=== PATIENT | female | born 1970 | race Caucasian/White ===

== ENCOUNTER → 2017-12-18 10:27 | Outpatient (CLI) | payer OTHER, SELFPAY ==
--- NOTE | 2017-12-18 10:35 | HPBI_ITS ---
MAMMOGRAPHY - BILATERAL SCREENING REASON FOR EXAM: Female, 47 years old. Routine annual screening examination. PERTINENT HISTORY: Non-contributory. Remote right stereotactic breast biopsy. TECHNIQUE: Digital bilateral breast erica (3D mammographic acquisition) in the CC and MLO projections. 2-D mediolateral oblique (MLO) and craniocaudad (CC) views of both breasts were obtained. CAD: Full Field Digital Mammography with Computer Added Detection was performed. COMPARISON: Comparison is made with prior examination of November 07, 2016 and November 02, 2015. FINDINGS: Breast Composition: The breasts are heterogeneously dense, which may obscure small masses. There are no dominant masses or suspicious calcifications. Stable tissue clip marker is seen in the deep mid slightly medial aspect of the right breast. No other significant abnormalities are identified. There has been no significant change since the prior study. HPBI/SCREENING MAMM (CAD), BILAT IMPRESSION: Stable bilateral screening mammogram. Yearly follow-up mammogram recommended. (A) ASSESSMENT CATEGORY: BIRADS Category 2: Benign. A letter regarding these results will be sent to the patient by the facility within 30 days. Approximately 10% of breast cancers are not detected by mammography. A normal mammogram should not delay biopsy of a clinically suspicious abnormality. [id number] Electronically Signed: Vamsi Vlale MD at 12:18 EDT Tel [phone], Service support ,
== END ==
PROVIDERS: Family Provider Family Medicine; PCP Family Medicine; Visit Provider Nurse Practitioner Women's Health
DX: Z12.31 Encounter for screening mammogram for malignant neoplasm of breast (principal)
CPT/HCPCS: 77063; 77067

== ENCOUNTER → 2018-02-10 12:18 | Outpatient (CLI) | payer OTHER, SELFPAY ==
--- NOTE | 2018-02-10 12:21 | RAD_ITS ---
STUDY: X-RAY - LEFT FOOT CLINICAL: Female, 47 years old. Left foot pain at the first tarsal bone TECHNIQUE: 3 view(s) of the foot. COMPARISON: None. FINDINGS: Normal talus, calcaneus, and tarsal bones. Normal visualized subtalar, talonavicular, calcaneocuboid, tarsal and tarsometatarsal articulations. Normal metatarsi. Large cortical excrescence at the head of the first metatarsal laterally measuring 1.7 x 0.9 cm. Normal tibial and fibular sesamoid bones. Normal interphalangeal joint of the great toe. Normal phalanges of the great toe. Normal second through fifth metatarsophalangeal joints. Normal interphalangeal joints and phalanges of the lesser toes. The soft tissue structures are unremarkable. RAD/Foot min 3 Views IMPRESSION: No acute findings. Large cortical excrescence at the head of the first metatarsal as detailed above. Electronically Signed: Rasta Hinojosa DO at 12:39 EDT Tel , Service support ,
== END ==
PROVIDERS: Family Provider Family Medicine; PCP Family Medicine; Visit Provider Family Medicine
DX: M79.672 Pain in left foot (principal)
CPT/HCPCS: 73630

== ENCOUNTER → 2018-03-12 07:23 | Outpatient (CLI) | payer OTHER, SELFPAY ==
--- NOTE | 2018-03-12 07:23 | DT_ITS ---
This patient was seen during an EMR downtime March 10, 2018 - March 17, 2018. This patient may have a combination of paper and electronic documentation or all paper documentation. All documentation is viewable within the e-chart portion of [facility] for each patient visit.
--- NOTE | 2018-03-12 07:30 | MRI_ITS ---
STUDY: MRI LEFT FOREFOOT WITHOUT CONTRAST REASON FOR EXAM: Female, 47 years old. First MTP joint pain TECHNIQUE: Standardized fat and water weighted pulse sequences were obtained in all 3 orthogonal planes. COMPARISON: X-ray 02/10/2018 FINDINGS: There is mild hallux valgus with osteoarthritis of the first MTP joint (image 11, 10, 9, 24 coronal T2). There is a joint effusion. There is bone marrow edema at the first metatarsal head and sesamoids (image 5, 824 sagittal inversion recovery). There is focal soft tissue fullness at the plantar aspect of the metatarsal heads of the second web space (image 17/ axial T1). Normal medial and lateral heads of the flexor hallucis brevis tendons. Normal flexor and extensor hallucis longus tendons. Normal second through fifth metatarsophalangeal (MTP) joints. Normal interphalangeal joints of the second through fifth toes. Normal proximal, middle and distal phalanges of the second through fifth toes. Normal flexor and extensor tendons of the second through fifth toes. Normal visualized metatarsi. Normal intrinsic muscles of the forefoot. There is no demonstrated soft tissue abnormality. MRI/Lower Ext/No Jt/w/o IMPRESSION: Hallux valgus with osteoarthritis at the first MTP joint with contusion/stress reaction at the first metatarsal head/sesamoids Small Moyer's neuroma, second webspace Electronically Signed: Betito Olsen MD at 9:50 EDT Tel , Service support ,
== END ==
PROVIDERS: Family Provider Family Medicine; PCP Family Medicine; Visit Provider Podiatrist
DX: M20.5X2 Other deformities of toe(s) (acquired), left foot (principal); M79.672 Pain in left foot; M19.072 Primary osteoarthritis, left ankle and foot; M25.80 Other specified joint disorders, unspecified joint
CPT/HCPCS: 73718

== ENCOUNTER → 2018-07-16 12:35 | Outpatient (CLI) | payer OTHER, SELFPAY | PROVIDERS: Family Provider Family Medicine; PCP Family Medicine; Visit Provider Nurse Practitioner Women's Health | DX: Z84.81 Family history of carrier of genetic disease (principal) | CPT/HCPCS: 36415 ==

== ENCOUNTER → 2018-12-17 11:24 | Outpatient (CLI) | payer OTHER, SELFPAY ==
[2018-12-17 11:16] VITALS: BMI 21.3
--- NOTE | 2018-12-17 11:28 | RAD_ITS ---
STUDY: X-RAY CHEST REASON FOR EXAM: Female, 48 years old. Cough. TECHNIQUE: PA and lateral views of the chest. COMPARISON: Comparison is made with prior study dated January 30, 2017. FINDINGS: Hyperinflation. The lungs are clear. There is no demonstrated pleural abnormality. Normal size heart. Normal mediastinum and valentin. Normal visualized pulmonary arteries. Normal visualized aortic arch and descending thoracic aorta. Normal visualized thoracic spine. Normal visualized ribs, clavicles, and shoulders. There is no demonstrated abnormality of the visualized soft tissue structures of the upper abdomen. RAD/Chest PA and Lateral IMPRESSION: Hyperinflation. The lungs are clear. Electronically Signed: Vamsi Valle, at 12:37 EDT , Service support ,
== END ==
PROVIDERS: Family Provider Family Medicine; PCP Family Medicine; Referring Provider Physician Assistant; Visit Provider Physician Assistant
DX: R05 Cough (principal)
CPT/HCPCS: 71046

== ENCOUNTER → 2019-01-09 13:22 | Outpatient (CLI) | payer OTHER, SELFPAY ==
[2018-12-17 11:16] VITALS: BMI 21.3
[2019-01-12 11:51] LABS: Hep C Antibodies <0.1 s/co ratio (0.0-0.9)
== END ==
PROVIDERS: Family Provider Family Medicine; PCP Family Medicine; Visit Provider Family Medicine
DX: Z57.8 Occupational exposure to other risk factors (principal)
CPT/HCPCS: 36415; 86803

== ENCOUNTER → 2019-01-14 | Outpatient (CLI) | payer OTHER, SELFPAY ==
[2018-12-17 11:16] VITALS: BMI 21.3
--- NOTE | 2019-01-14 07:47 | BI_ITS ---
MAMMOGRAPHY - BILATERAL SCREENING REASON FOR EXAM: Female, 48 years old. Routine annual screening examination. PERTINENT HISTORY: Daughter with breast cancer. Remote right stereotactic breast biopsy. TECHNIQUE: Digital bilateral breast astrid (3D mammographic acquisition) in the CC and MLO projections. 2-D mediolateral oblique (MLO) and craniocaudad (CC) views of both breasts were obtained. CAD: Full Field Digital Mammography with Computer Added Detection was performed. COMPARISON: Comparison is made with prior study dated December 18, 2017 and November 07, 2016. FINDINGS: Breast Composition: The breasts are heterogeneously dense, which may obscure small masses. There are no dominant masses or suspicious calcifications. A tissue clip marker from prior biopsy is seen in the central slightly medial aspect of the right breast. No other significant abnormalities are identified. There has been no significant change since the prior study. BI/SCREEN MAMM (CAD) W/ASTRID BILAT IMPRESSION: Stable bilateral screening mammogram. Yearly follow-up mammogram recommended. (A) ASSESSMENT CATEGORY: BIRADS Category 2: Benign. A letter regarding these results will be sent to the patient by the facility within 30 days. Approximately 10% of breast cancers are not detected by mammography. A normal mammogram should not delay biopsy of a clinically suspicious abnormality. [id number] Electronically Signed: Vamsi Valle, at 12:38 EDT , Service support ,
== END | disposition home or self-care (01) ==
LOC: OPBI 07:45
PROVIDERS: Family Provider Family Medicine; PCP Family Medicine; Referring Provider Nurse Practitioner Women's Health; Visit Provider Nurse Practitioner Women's Health
DX: Z12.31 Encounter for screening mammogram for malignant neoplasm of breast (principal)
CPT/HCPCS: 77063; 77067

== ENCOUNTER 2019-09-18 09:10 | Emergency (ER) | payer OTHER, SELFPAY ==
[2019-04-11 09:55] VITALS: BMI 21.3
[2019-09-18 09:11] VITALS: BP 152/91; PULSE 102; RESP 16; TEMP 36.9; O2SAT 100; BMI 24.3
--- NOTE | 2019-09-18 09:28 | EKG12_ITS ---
Test Reason : CP Blood Pressure : / mmHG Vent. Rate : 094 BPM Atrial Rate : 094 BPM P-R Int : 142 ms QRS Dur : 076 ms QT Int : 356 ms P-R-T Axes : 078 066 049 degrees QTc Int : 445 ms Normal sinus rhythm Normal ECG Confirmed by OLGA GAONA ([id number]), magazine editor CASANRDA POWERS ([id number]) on 09/23/2019 12:55:34 PM Referred By: HILLARY Confirmed By:OLGA GAONA
--- NOTE | 2019-09-18 09:29 | ED.VIS.CHEST ---
History of Present Illness Chief Complaint: Chest Pain Informant: Patient Onset: Today Activity at onset: Rest Timing: Continuous Quality: Pressure, Sharp, Stabbing Location: Left Chest Current Severity: Severe Worsened By: Breathing Relieved By: Nothing Associated Symptoms: Dyspnea, Acid Reflux Narrative: Patient is a 49-year-old female with history of GERD and depression presenting with left-sided chest pain. Patient states when she woke up from sleep she had an aching in her left side of her chest. She is also felt tight. But that is gone on the pain has worsened. For the past few minutes she states the pain is become quite sharp. It is in her upper left chest. Is worse when she takes a deep breath. She denies any radiation of pain. She states she feels short of breath on because she cannot take a deep breath. She states she never had anything like this before. She notes she also feels that she needs to belch but cannot. She denies any associated sweating, nausea or vomiting. She denies any swelling of her legs. She denies any recent travel or history of DVT/PE. She denies any associate abdominal pain or urinary symptoms. She does not think she is as she is currently on oral control. Patient denies any cardiac history, hypertension, hyperlipidemia or history of tobacco use. She notes at one time in the past she was having fluttering and she had a Holter monitor. She never found out the cause of this fluttering and it had resolved. Prior Similar Symptoms: No Recent Illness/Hospitalization: No CVD Risk Factors: Negative for: Hypertension, Diabetes, Hypercholesterolemia, Family History 1' </=55, Smoking PE Risk Factors: - - Positive OCP use. Negative for: Recent Travel/Surgery, Recenet Immobilization, Prior DVT or PE, Cancer, OCP + Smoking + >/=35 Past Medical History - Allergies and Home Meds Allergies/Adverse Reactions: Allergies clarithromycin [From Biaxin] Allergy (Verified 09/18/19 09:14) Nikunj Primary Care Physician: Daniel Jay MD [Primary Care Provider] - Past Medical History: - - Pression, GERD Surgical History: appendectomy, cholecystectomy, - - EGD Lives: Spouse/ Significant Other Smoking Status: Never smoker Review of Systems General: Denies: Chills, Fever, Sweats Eyes: Denies: Visual changes - bilaterally, Diplopia ENT: Denies: Rhinorrhea, Sore throat Cardiovascular: Reports: Chest pain. Denies: Palpitations Respiratory: Reports: Dyspnea. Denies: Cough, Dyspnea on exertion Gastrointestinal: Denies: Abdominal pain, Nausea, Vomiting, Diarrhea, Melena, Hematochezia Genitourinary: Denies: Dysuria, Hematuria, Frequency Musculoskeletal: Denies: Back pain, Extremity Pain Skin: Denies: Rash, Wounds Neurological: Denies: Headache, Weakness, Numbness Physical Exam Vital Signs/Narrative: Vital Signs Temp Pulse Resp BP Pulse Ox 09/18/19 09:11 98.5 F 102 H 16 152/91 H 100 Inital Vital Signs reviewed: Yes General: Well nourished, Well developed, No Acute Distress Head: Normocephalic, Atraumatic Eyes: Perrl, EOMI ENT: Moist mucous membranes, No rhinorrhea Neck: Supple, Nontender Cardiovascular: Regular rate, Regular rhythm, No murmurs Respiratory: No distress, CTA bilaterally, Chest nontender, - - Patient is unable to take deep breaths secondary to pain. Negative for: Wheezing Abdomen: Soft, Nontender, Nondistended, Normal bowel sounds Back: Nontender, Normal Inspection Extremities: Nontender, No edema Skin: Normal color, No rash Neurological: Alert, Oriented x3, Cranial nerves II-XII grossly intact, Normal Strength, Normal Sensation Psychological: Normal affect, - - Anxious Diagnostic/Tx/Re-eval Chest X-Ray - ED: 2 View, Read by ED Physician, Read by Radiologist, No Acute Disease Clinical Impression(s) from Imaging Studies Chest X-Ray 09/18/19 09:35 IMPRESSION: Normal x-ray examination of the chest. Electronically Signed: Vamsi Valle, at 10:17 EST , Service support , Laboratory Data 09/18/19 09/18/19 09/18/19 09:15 09:15 09:15 WBC 7.1 RBC 4.82 Hgb 13.6 Hct 42.0 MCV 87.1 MCH 28.2 MCHC 32.4 RDW Std Deviation 42.8 RDW Coeff of Sundar 13.4 Plt Count 520 H MPV 10.1 Immature Gran % (Auto) 0.300 Neut % (Auto) 48.6 Lymph % (Auto) 38.1 Laurens % (Auto) 8.8 Eos % (Auto) 3.2 Baso % (Auto) 1.0 Absolute Neuts (auto) 3.5 Absolute Lymphs (auto) 2.72 Nucleated RBC % 0 D-Dimer Quant (PE/DVT) 0.31 Sodium 137 Potassium 4.0 Chloride 105 Carbon Dioxide 29.0 Anion Gap 3 L BUN 15 Creatinine 0.73 Estim Creat Clear Calc 83.88 Est GFR (MDRD) Af Amer 108 Est GFR (MDRD) Non-Af 90 BUN/Creatinine Ratio 20.5 H Glucose 83 Calcium 9.1 Troponin I < 0.015 Urine Test 09/18/19 10:30 WBC RBC Hgb Hct MCV MCH MCHC RDW Std Deviation RDW Coeff of Sundar Plt Count MPV Immature Gran % (Auto) Neut % (Auto) Lymph % (Auto) Laurens % (Auto) Eos % (Auto) Baso % (Auto) Absolute Neuts (auto) Absolute Lymphs (auto) Nucleated RBC % D-Dimer Quant (PE/DVT) Sodium Potassium Chloride Carbon Dioxide Anion Gap BUN Creatinine Estim Creat Clear Calc Est GFR (MDRD) Af Amer Est GFR (MDRD) Non-Af BUN/Creatinine Ratio Glucose Calcium Troponin I Urine Test Negative - Rhythm Strip Rhythm Strip: Sinus Rhythm Rate: 94 Ectopy: None - EKG Initial EKG Interpretation: Sinus Rhythm, - - This rhythm at a rate of [address] segments Normal axis Treatment: Aspirin, Morphine, Toradol IV MARIA G Risk: No Positive MARIA G Elements Score: 0 - Medical Decision Making Patient evaluated for left-sided chest pain. Is been worsening throughout the morning. She appears nontoxic and in no acute distress. She is mildly tachycardic. D-dimer is negative and have a low suspicion for PE. Do not make a CT is indicated given for stable hemodynamics, symptoms and normal d-dimer. EKG is normal. Her troponin is normal. Pain is most consistent with pleurisy. It is much worse when she takes a big breath and better with shallow breathing. Is not reproducible with palpation. Position does not change it. She has normal white blood cell count. I do not suspect pneumonia. Patient was initially given morphine and aspirin. She has mild relief with this. She was given IV Toradol. Patient does continue to have improvement emergency room. At time of discharge she was given a Lidoderm patch. I do not suspect ACS. Lower suspicion for pericarditis I do not suspect myocarditis given her normal heart rate and normal troponin. Patient is counseled to return should she have worsening or changing symptoms. She is counseled on pleurisy. Patient is counseled on signs and symptoms requiring return to the emergency room. Patient verbalizes agreement and understand this plan. Patient discharged home in stable and improved condition. ED Disposition - Plan for ED Patient: Disposition: Home or Assisted Living Diagnosis: Pleuritic chest pain Instructions: Pleurisy Prescriptions: Ibuprofen [Motrin] 600 mg PO Q6H PRN PRN #20 tab PRN Reason: Pain Or Fever Prescription Printed Referrals: Daniel Jay MD [Primary Care Provider] - Additional Instructions: Please follow-up with your primary care doctor early next week if no improvement. Return the emergency room if your symptoms worsen. Continue to take anti-inflammatory such as ibuprofen for the pain. You may try [id number] Lidoderm patch 4% if you found it helpful in the ER. Drink plenty of fluids.
[2019-09-18] MEDS: Morphine 4 MG/ML Syringe IV (09:33)
[2019-09-18] MEDS: Aspirin 81 MG TAB.CHEW 324 MG PO (09:33)
--- NOTE | 2019-09-18 09:35 | RAD_ITS ---
STUDY: X-RAY CHEST REASON FOR EXAM: Female, 49 years old. Chest pain. TECHNIQUE: PA and lateral views of the chest. COMPARISON: Comparison is made with prior study dated December 17, 2018. FINDINGS: EKG electrodes are seen. The lungs are clear and expanded. There is no demonstrated pleural abnormality. Normal size heart. Normal mediastinum and valentin. Normal visualized pulmonary arteries. Normal visualized aortic arch and descending thoracic aorta. Normal visualized thoracic spine. Normal visualized ribs, clavicles, and shoulders. There is no demonstrated abnormality of the visualized soft tissue structures of the upper abdomen. RAD/Chest PA and Lateral IMPRESSION: Normal x-ray examination of the chest. Electronically Signed: Vamsi Valle, at 10:17 EST , Service support ,
[2019-09-18 09:39] LABS: Absolute Lymphocyte Count 2.72 X10^3/uL (0.83-4.51); Absolute Neutrophil Count 3.5 X10^3/uL (2.0-7.7); Basophil# 0.07 X10^3/uL; Eosinophil# 0.23 X10^3/uL; Eosinophils% 3.2 % (0-5); Hemoglobin 13.6 g/dL (12.0-15.0); Lymphocyte # 2.72 X10^3/ul (4.0); Lymphocyte % 38.1 % (19-41); Mean Corp Hgb Conc 32.4 g/dL (32-36); Mean Corpuscular Hgb 28.2 pg (27.0-32.0); Mean Corpuscular Volume 87.1 fL (81-99); Mean Platelet Vol. 10.1 fl (6.2-12.0); Monocyte# 0.63 X10^3/uL; Monocyte% 8.8 % (0-10); NRBC Flagged by Analyzer 0 % (0-5); Neutrophil # 3.46 X10^3/uL (2.7-7.7); Neutrophil % 48.6 % (47-70); Platelet Count 520 K/mm3 (150-450); RBC Distribution Width CV 13.4 % (11.6-14.6); RBC Distribution Width SD 42.8 fl (35.1-43.9); Red Blood Count 4.82 M/mm3 (4.2-5.4); White Blood Count 7.1 K/mm3 (4.4-11.0)
[2019-09-18 09:44] LABS: D-Dimer Quantitative (DVT/PE) 0.31 FEU/ug/m (0.27-0.49)
[2019-09-18 09:50] LABS: Anion Gap 3 (5-15); BUN 15 mg/dL (7-18); BUN/Creat Ratio 20.5 RATIO (10-20); Calcium,Total 9.1 mg/dL (8.5-10.1); Chloride 105 mmol/L (98-107); Creatinine, Serum 0.73 mg/dL (0.55-1.02); EST Glomerular Filtration Rate 90 mL/min (>60); Est Glom Filt Rate - Afr Amer 108 mL/min (>60); Estimated Creatinine Clearance 83.88 ml/min; Glucose 83 mg/dL (74-106); Sodium Level 137 mmol/L (136-145)
[2019-09-18 10:40] LABS: Internal QC Validated? YES +Cl - CLEAR BKGD; Pregnancy, Urine Negative Negative
[2019-09-18] MEDS: Ketorolac 15 MG/ML Vial IV (11:13)
[2019-09-18] MEDS: Lidocaine 5% Patch 1 PATCH TOPICAL (11:28)
[2019-09-18 11:30] VITALS: BP 142/80; PULSE 76; RESP 17; O2SAT 96
== END 2019-09-18 11:31 | disposition home or self-care (01) ==
PROVIDERS: Emergency Provider Emergency Medicine; Family Provider Family Medicine; PCP Family Medicine
DX: R07.81 Pleurodynia (principal); K21.9 Gastro-esophageal reflux disease without esophagitis
CPT/HCPCS: 71046; 80048; 81025; 84484; 85025; 85379; 93005; 96374; 96375; 99285; A4216

== ENCOUNTER → 2020-01-20 08:29 | Outpatient (CLI) | payer OTHER, SELFPAY ==
[2019-12-03 11:23] VITALS: BMI 24.3
--- NOTE | 2020-01-20 08:30 | BI_ITS ---
MAMMOGRAPHY - BILATERAL SCREENING REASON FOR EXAM: Female, 49 years old. Routine annual screening examination. PERTINENT HISTORY: Daughter with breast cancer. Prior right stereotactic breast biopsy. TECHNIQUE: Digital bilateral breast astrid (3D mammographic acquisition) in the CC and MLO projections. 2-D mediolateral oblique (MLO) and craniocaudad (CC) views of both breasts were obtained. CAD: Full Field Digital Mammography with Computer Added Detection was performed. COMPARISON: Comparison is made with prior examination dated January 14, 2019 and December 18, 2017. FINDINGS: Breast Composition: The breasts are heterogeneously dense, which may obscure small masses. There are no dominant masses or suspicious calcifications. No other significant abnormalities are identified. There has been no significant change since the prior study. BI/SCREEN MAMM (CAD) W/ASTRID BILAT IMPRESSION: Stable bilateral screening mammogram. Yearly follow-up mammogram recommended. (A) ASSESSMENT CATEGORY: BIRADS Category 1: Negative. A letter regarding these results will be sent to the patient by the facility within 30 days. Approximately 10% of breast cancers are not detected by mammography. A normal mammogram should not delay biopsy of a clinically suspicious abnormality. [id number] Electronically Signed: Vamsi Valle, at 14:24 EDT , Service support ,
== END ==
PROVIDERS: PCP Family Medicine; Referring Provider Nurse Practitioner Women's Health; Visit Provider Nurse Practitioner Women's Health
DX: Z12.31 Encounter for screening mammogram for malignant neoplasm of breast (principal)
CPT/HCPCS: 77063; 77067

== ENCOUNTER → 2020-03-11 | Outpatient (CLI) | payer OTHER, SELFPAY ==
[2020-01-20 09:48] VITALS: BMI 24.3
[2020-03-11 13:18] LABS: Cholesterol 212 mg/dL (200); Glucose 69 mg/dL (74-106); High Density Lipoprotein 83 mg/dL; T4 Free Direct 0.98 ng/dL (0.76-1.46); Thyroid Stim Hormone (TSH) 2.39 uIU/mL (0.358-3.74); Triglycerides 81 mg/dL; Very Low Density Lipoprotein 16 mg/dL (5-40)
[2020-03-12 07:17] LABS: SARS-COV-2 TOTAL ABS Nonreactive (Nonreactive)
== END | disposition home or self-care (01) ==
LOC: BFHLAB 08:45
PROVIDERS: PCP Family Medicine; Visit Provider Family Medicine
DX: G47.00 Insomnia, unspecified (principal); R53.83 Other fatigue; Z20.828 Contact with and (suspected) exposure to other viral communicable diseases; Z13.220 Encounter for screening for lipoid disorders; Z13.1 Encounter for screening for diabetes mellitus
CPT/HCPCS: 36415; 80061; 82947; 84439; 84443; 86769; G2023

== ENCOUNTER → 2020-05-20 | Outpatient (CLI) | payer OTHER, SELFPAY ==
[2020-01-20 09:48] VITALS: BMI 24.3
[2020-05-20 10:33] LABS: Follicle Stimulating Hormone 0.7 mIU/mL
== END | disposition home or self-care (01) ==
LOC: PAVLAB 09:57
PROVIDERS: PCP Family Medicine; Referring Provider Nurse Practitioner Women's Health; Visit Provider Nurse Practitioner Women's Health
DX: N95.1 Menopausal and female climacteric states (principal)
CPT/HCPCS: 36415; 83001

== ENCOUNTER → 2020-06-08 09:40 | Outpatient (CLI) | payer OTHER, SELFPAY ==
[2020-01-20 09:48] VITALS: BMI 24.3
[2020-06-08 11:05] LABS: Follicle Stimulating Hormone 25.9 mIU/mL
== END ==
PROVIDERS: PCP Family Medicine; Referring Provider Nurse Practitioner Women's Health; Visit Provider Nurse Practitioner Women's Health
DX: N39.0 Urinary tract infection, site not specified (principal)
CPT/HCPCS: 36415; 83001; 87077; 87086; 87088; 87186

== ENCOUNTER → 2021-01-25 09:41 | Outpatient (CLI) | payer OTHER, SELFPAY ==
[2020-09-07 14:03] VITALS: BMI 20.6
[2021-01-25 09:08] VITALS: BMI 20.8
--- NOTE | 2021-01-25 09:51 | BI_ITS ---
MAMMOGRAPHY - BILATERAL SCREENING REASON FOR EXAM: Female, 50 years old. Routine annual screening examination. PERTINENT HISTORY: Daughter with breast cancer. Remote right stereotactic breast biopsy. TECHNIQUE: Digital bilateral breast astrid (3D mammographic acquisition) in the CC and MLO projections. 2-D mediolateral oblique (MLO) and craniocaudad (CC) views of both breasts were obtained. CAD: Full Field Digital Mammography with Computer Added Detection was performed. COMPARISON: Comparison is made with prior study dated 01/20/2020 and 01/14/2019. FINDINGS: Breast Composition: The breasts are extremely dense, which lowers the sensitivity of mammography. There are no dominant masses or suspicious calcifications. A tissue clip marker is once again seen in the deep central portion of the right breast. No other significant abnormalities are identified. There has been no significant change since the prior study. BI/SCRN MAMM (CAD)W/ASTRID BILAT IMPRESSION: Stable bilateral screening mammogram. Yearly follow-up mammogram recommended. (A) ASSESSMENT CATEGORY: BIRADS Category 2: Benign. A letter regarding these results will be sent to the patient by the facility within 30 days. Approximately 10% of breast cancers are not detected by mammography. A normal mammogram should not delay biopsy of a clinically suspicious abnormality. [id number] Electronically Signed: Vamsi Valle MD at 11:24 EDT , Service support ,
[2021-01-27 11:40] LABS: HPV APTIMA, High Risk Negative (Negative)
== END ==
PROVIDERS: PCP Family Medicine; Referring Provider Nurse Practitioner Women's Health; Visit Provider Nurse Practitioner Women's Health
DX: N92.6 Irregular menstruation, unspecified (principal); Z12.31 Encounter for screening mammogram for malignant neoplasm of breast; Z12.4 Encounter for screening for malignant neoplasm of cervix
CPT/HCPCS: 36415; 77063; 77067; 83001; 87624; 88175; G0145

== ENCOUNTER → 2021-01-27 12:23 | Outpatient (CLI) | payer OTHER, SELFPAY ==
[2021-01-25 09:08] VITALS: BMI 20.8
--- NOTE | 2021-01-27 12:24 | US_ITS ---
STUDY: ULTRASOUND OF THE FEMALE PELVIS - COMPLETE REASON FOR EXAM: Female, 50 years old. Elevated FSH . Perimenopausal bleeding. LMP: 01/10/2021. TECHNIQUE: Transabdominal and Transvaginal TECHNICAL QUALITY: Adequate. COMPARISON: None. FINDINGS: The uterus is anteverted and is in a midline position. The uterus measures 8.8 cm x 7.3 cm x 4 cm. There is a Nabothian cyst of the cervix. The endometrium measures 6 mm in thickness, and is hyperechoic. There is no demonstrated endometrial mass. 2 fibroids are seen. The larger measures 2.6 cm x 2.9 cm x 2.8 cm. I.U.D. - The patient does not have an I.U.D. The right ovary is visualized. The right ovary measures 3.2 cm x 2.4 cm x 1.5 cm. There is no right ovarian cyst or ovarian mass. There is no visualized right adnexal mass or complex lesion. There is normal arterial and normal venous vascularity. The left ovary is visualized. The left ovary measures 2.1 cm x 1.3 cm x 0.8 cm. There is no left ovarian cyst or ovarian mass. There is no visualized left adnexal mass or complex lesion. There is normal arterial and normal venous vascularity. There is no fluid in the cul-de-sac. The pre void volume of the bladder was 235 ml. Polycystic ovary disease: No. US/Pelvic (Non ) IMPRESSION: Fibroid uterus. Electronically Signed: Vamsi Valle MD at 15:14 EDT , Service support ,
--- NOTE | 2021-01-27 12:24 | US_ITS ---
STUDY: ULTRASOUND OF THE FEMALE PELVIS - COMPLETE REASON FOR EXAM: Female, 50 years old. Elevated FSH . Perimenopausal bleeding. LMP: 01/10/2021. TECHNIQUE: Transabdominal and Transvaginal TECHNICAL QUALITY: Adequate. COMPARISON: None. FINDINGS: The uterus is anteverted and is in a midline position. The uterus measures 8.8 cm x 7.3 cm x 4 cm. There is a Nabothian cyst of the cervix. The endometrium measures 6 mm in thickness, and is hyperechoic. There is no demonstrated endometrial mass. 2 fibroids are seen. The larger measures 2.6 cm x 2.9 cm x 2.8 cm. I.U.D. - The patient does not have an I.U.D. The right ovary is visualized. The right ovary measures 3.2 cm x 2.4 cm x 1.5 cm. There is no right ovarian cyst or ovarian mass. There is no visualized right adnexal mass or complex lesion. There is normal arterial and normal venous vascularity. The left ovary is visualized. The left ovary measures 2.1 cm x 1.3 cm x 0.8 cm. There is no left ovarian cyst or ovarian mass. There is no visualized left adnexal mass or complex lesion. There is normal arterial and normal venous vascularity. There is no fluid in the cul-de-sac. The pre void volume of the bladder was 235 ml. Polycystic ovary disease: No. US/Transvaginal Non- IMPRESSION: Fibroid uterus. Electronically Signed: Vamsi Valle MD at 15:14 EDT , Service support ,
== END ==
PROVIDERS: PCP Family Medicine; Referring Provider Nurse Practitioner Women's Health; Visit Provider Nurse Practitioner Women's Health
DX: N92.6 Irregular menstruation, unspecified (principal)
CPT/HCPCS: 76830; 76856

== ENCOUNTER → 2021-02-01 | Outpatient (CLI) | payer OTHER, SELFPAY ==
--- NOTE | 2021-02-01 | EMB_PTH ---
PATIENT: NADIRA WONG [facility]: [facility] U#:[id number] AGE/SX: 50/F ROOM: RE02/01/[address]: KERRY Ramos : 1970 BED: DIS: 02/01/2021 SPEC #: [id number] RECD: 02/01/21 12:13 STATUS: JHOAN REJennifer #: [id number] SRIKANTH: 02/01/21 00:[address]: Brenda Triana NP DEPT: SURGICAL PATHOLOGY RECD BY: Joshua Duran ENTERED: 02/01/21 12:13 SP TYPE: ENDOM BX/C LLOYD DR: Dr. Daniel Jay MD Tissues: Endometrium, NOS Procedures: Surgery Specimen Level IV HEADER OPERATION: Endometrial biopsy PRE-OP DIAGNOSIS: Abnormal uterine bleeding TISSUE SUBMITTED: Endometrial biopsy MICROSCOPIC DIAGNOSIS Endometrial biopsy: Proliferative endometrium with focal area of mildly disordered proliferative endometrium. SJ:pam 02/02/2021 MICROSCOPIC DESCRIPTION Slides are reviewed. GROSS DESCRIPTION Received is one container labeled with the patient's name and not further designated. The specimen consists of multiple fragments of hemorrhagic mucoid tissue that in aggregate measure 2.5 x 0.5 x 0.1 cm. The specimen is totally submitted in one cassette. / SJ:pam 02/01/21 TC:5 CPT: 87329
[2021-02-01 08:47] VITALS: BMI 20.9
== END | disposition home or self-care (01) ==
LOC: LABSPEC 12:04
PROVIDERS: PCP Family Medicine; Visit Provider Nurse Practitioner Women's Health
DX: N93.9 Abnormal uterine and vaginal bleeding, unspecified (principal)
CPT/HCPCS: 88305

== ENCOUNTER 2021-03-17 08:30 | Outpatient (RCR) | payer OTHER, SELFPAY ==
[2021-02-01 08:47] VITALS: BMI 20.9
--- NOTE | 2021-02-23 07:56 | HP.OTEVAL_ITS ---
Patient's Visit Information CONSUELO WONG is a 50 year old F, referred to Occupational Therapy by Dr. Betito Larry MD, with a diagnosis of CMC arthritis. 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 pt states she did have PT at [facility] and was given exercises for her thumb and a comfort cool thumb brace- pt states she did not feel this has made much of a differance. pt did try k-tape and is difficult taking gloves on and off. pt would like to know what she can do to decrease pain and continue with her work and ADLS and IADLS at a independent level. - Pain right thumb 5 Pain Intensity Range: 4, 8 - ROM Wrist: right 80/65 left 75/85 CMC: right 20 left 20 MP: right 65 left 55 IP: right 60 left 65 Radial Abduction: right 40 left 50 ROM Comments: pt demo with thumb instability with resistance - Strength Linen Supervisor: right 20# left 40# Lateral Pinch: right 6# left 12# Tripod Pinch: right 2# left 4# Strength Comments: pain with task - DASH-Disabilities of Arm, Shoulder& Hand DASH Sum: 13 - Quick DASH-Disab of Arm,Shoulder& Hand Quick DASH Score: 36.6650 - Goals Goal:: pt will demo a increase in right sales account coordinator strength by 10# to increase pts ind. with ADLs and IADLs by d/c Goal:: pt will report no pain greater than 1/10 with use of ADls and IADLs by d/c Goal:: Pt will demo understanding of work/lifting and carry ergonomics to decrease stress on tendons to increase pts independent with ADLs, IADLS and work tasks by d/c. Pt will demo understanding of joint protection and ergonomics when performing BADLs and IADLs by d/c Goal:: pt will demo a reduction in thumb instability by 50% or greater with restive pinch. - Rehabilitation General Assessment: pt demo with thumb instability with sales account coordinator/pinch increasing joint stress and pain with use of right hand. This limits pts. IND. with ADLS and IADLS. pt would benefit from skilled OT services to ed. pt on joint protection, thumb stabilization exercises, pain reduction to return pt to [facility]. Today therapist ed pt on dx, thumb stabilization, and t-tape david. to support CMC. Therapy will cont. to ed. pt on joint protection, gardening ergonomics and modalities decrease pts pain. pt demo understanding and agree to POC. Rehabilitation Potential: Good - Anticipated Interventions Strengthening, Triggerpoint Release, Modalities, Orthoses, Joint Protection/Energy Conservation, Ergonomic Education, ADL Training, Education re assistive Equipment - Visit Plan Frequency: 1x/Week Duration: 3 Weeks TEXT: Thank you for the opportunity to evaluate your patient. For Medicare and Medicare HMO plans, please review the plan of care and approve it. It will need to be FAXED BACK to us at [phone] for Medicare purposes. Please let me know if there are questions or concerns regarding this plan of care. Physician Signature: Date:
--- NOTE | 2021-07-19 09:25 | HP.OT.NRP ---
NADIRA WONG was seen in my office for initial evaluation on 02/22/21. The following Plan of Care was established for this patient: Initial Frequency: 1x/Week Initial Duration: 3 Weeks Plan: cont with thumb care. US if pt felt better Anticipated Interventions: Strengthening, Triggerpoint Release, Modalities, Orthoses, Joint Protection/Energy Conservation, Ergonomic Education, ADL Training, Education re assistive Equipment This patient was last seen in our office 03/17/21. Pertinent comments regarding their Occupational therapy will appear below: Pt was seen for 4 OT visits- pt has not been seen since 03/17/21 and due to time lapse in services pt d/c. At this point I will be discontinuing this patient from occupational therapy. I would be happy to see this patient again in the future if found appropriate by the physician. Thank you! Nadira Edge, OTR/L, CHT
== END 2021-03-17 19:00 | disposition home or self-care (01) ==
LOC: OT 08:30
PROVIDERS: PCP Family Medicine; Referring Provider Specialist; Visit Provider Specialist
DX: M18.11 Unilateral primary osteoarthritis of first carpometacarpal joint, right hand (principal)
CPT/HCPCS: 97035; 97110; 97140; 97166; 97530; 97760

== ENCOUNTER → 2021-07-07 10:05 | Outpatient (CLI) | payer OTHER, SELFPAY ==
[2021-07-07 12:22] LABS: Absolute Lymphocyte Count 1.98 X10^3/uL (0.83-4.51); Absolute Neutrophil Count 3.5 X10^3/uL (2.0-7.7); Basophil# 0.06 X10^3/uL; Basophil% 0.9 % (0-1); Eosinophils% 3.2 % (0-5); Hematocrit 44.4 % (37-47); Hemoglobin 14.1 g/dL (12.0-15.0); Lymphocyte # 1.98 X10^3/ul (0.83-4.51); Lymphocyte % 31.3 % (19-41); Mean Corp Hgb Conc 31.8 g/dL (32-36); Mean Corpuscular Hgb 28.2 pg (27.0-32.0); Mean Corpuscular Volume 88.8 fL (81-99); Monocyte# 0.59 X10^3/uL; Monocyte% 9.3 % (0-10); NRBC Flagged by Analyzer 0 % (0-5); Neutrophil # 3.48 X10^3/uL (2.7-7.7); Neutrophil % 55.1 % (47-70); Platelet Count 660 K/mm3 (150-450); RBC Distribution Width CV 12.9 % (11.6-14.6); RBC Distribution Width SD 42.2 fl (35.1-43.9); White Blood Count 6.3 K/mm3 (4.4-11.0)
[2021-07-07 12:42] LABS: Vitamin D,25 Hydroxy 20.4 ng/mL
[2021-07-07 12:48] LABS: ALB/GLOB Ratio 1.1 RATIO (0.9-2.4); AST(SGOT) 17 U/L (15-37); Alanine Aminotransfer ALT/SGPT 26 U/L (13-56); Albumin, Serum 4.3 g/dL (3.2-5.0); Alkaline Phosphatase 109 U/L (45-117); Anion Gap 5 (5-15); BUN 17 mg/dL (7-18); BUN/Creat Ratio 26.6 RATIO (10-20); Calcium,Total 9.7 mg/dL (8.5-10.1); Chloride 104 mmol/L (98-107); Creatinine, Serum 0.64 mg/dL (0.55-1.02); EST Glomerular Filtration Rate 104 mL/min (>60); Est Glom Filt Rate - Afr Amer 126 mL/min (>60); Estradiol 16.9 pg/mL; Free T3 2.9 pg/mL (2.18-3.98); Globulin 3.9 g/dL (2.2-4.2); Glucose 89 mg/dL (74-106); Potassium 4.1 mmol/L (3.5-5.1); Protein, Total 8.2 g/dL (6.4-8.2); Sodium Level 139 mmol/L (136-145); T4 Free Direct 0.78 ng/dL (0.76-1.46)
[2021-07-07 13:53] LABS: Progesterone Level < 0.21 ng/mL (See Comment)
[2021-07-08 11:10] LABS: DHEA Sulfate 53.5 ug/dL (41.2-243.7)
[2021-07-08 16:17] LABS: Thyroid Peroxidase AB 16 IU/mL (0-34)
== END ==
PROVIDERS: PCP Family Medicine; Referring Provider Preventive Medicine Public Health & General Preventive Medicine; Visit Provider Preventive Medicine Public Health & General Preventive Medicine
DX: E03.9 Hypothyroidism, unspecified (principal); E34.9 Endocrine disorder, unspecified; N95.1 Menopausal and female climacteric states; E55.9 Vitamin D deficiency, unspecified
CPT/HCPCS: 36415; 80053; 82306; 82627; 82670; 84144; 84403; 84439; 84443; 84481; 85025; 86376; 82626

== ENCOUNTER 2021-10-25 15:16 | Outpatient (CLI) | payer OTHER, SELFPAY | END 2021-10-25 23:59 | disposition short-term general hospital (02) | LOC: LABSPEC 15:17 | PROVIDERS: PCP Family Medicine; Referring Provider Physician Assistant; Visit Provider Physician Assistant | DX: Z20.822 Contact with and (suspected) exposure to COVID-19 (principal) | CPT/HCPCS: 87635; U0003; U0005 ==

== ENCOUNTER → 2022-01-31 | Outpatient (CLI) | payer OTHER, SELFPAY ==
--- NOTE | 2022-01-31 08:52 | BI_ITS ---
MAMMOGRAPHY - BILATERAL SCREENING REASON FOR EXAM: Female, 51 years old. Routine annual screening examination. PERTINENT HISTORY: Daughter with breast cancer. Remote right stereotactic breast biopsy. TECHNIQUE: Digital bilateral breast astrid (3D mammographic acquisition) in the CC and MLO projections. 2-D mediolateral oblique (MLO) and craniocaudad (CC) views of both breasts were obtained. CAD: Full Field Digital Mammography with Computer Added Detection was performed. COMPARISON: Comparison is made with prior study dated 01/25/2021 and 01/20/2020. FINDINGS: Breast Composition: The breasts are extremely dense, which lowers the sensitivity of mammography. There are no dominant masses or suspicious calcifications. A tissue clip marker is once again seen in the deep central medial aspect of the right breast. No other significant abnormalities are identified. There has been no significant change since the prior study. BI/SCRN MAMM (CAD)W/ASTRID BILAT IMPRESSION: Stable bilateral screening mammogram. Yearly follow-up mammogram recommended. (A) ASSESSMENT CATEGORY: BIRADS Category 2: Benign. A letter regarding these results will be sent to the patient by the facility within 30 days. Approximately 10% of breast cancers are not detected by mammography. A normal mammogram should not delay biopsy of a clinically suspicious abnormality. [id number] Electronically Signed: Vamsi Valle MD at 10:28 EDT ,
--- NOTE | 2022-01-31 09:15 | BD_ITS ---
STUDY: DUAL ENERGY X-RAY ABSORPTIOMETRY / DXA REASON FOR EXAM: Female, 51 years old. Osteoarthritis, postmenopausal TECHNIQUE: Bone Mineral Density (BMD) measurements of lumbar spine and bilateral hips were obtained. COMPARISON: None. FINDINGS: Lumbar Spine (L1-L4): g/cm2 (0.768) / T-score (-2.5) / Z-score (-1.7) Findings are suggestive of osteopenia with a high fracture risk. Left Femur Total: g/cm2 (0.717) / T-score (-1.8) / Z-score (-1.3) Left Femoral Neck: g/cm2 (0.586) / T-score (-2.4) / Z-score (-1.5) Right Femur Total: g/cm2 (0.781) / T-score (-1.3) / Z-score (-0.8) Right Femoral Neck: g/cm2 (0.597) / T-score (-2.3) / Z-score (-1.4) BD/Dexa Bone Density Study IMPRESSION: The patient is considered osteopenic as outlined below according to World Ayaan Organization (WHO) criteria with a high fracture risk. Reference Information: The T-score is the number of standard deviations above or below the standard which is normal for young adults at their peak bone mineral density. The World Health Organization (WHO) interprets the T-scores as follows: Above -1 Normal bone density Between -1 and -2.5 Osteopenia Equal to / or below -2.5 Osteoporosis As a practical clinical guideline, osteopenia may be graded as follows: Mild -1 through -1.5 Moderate -1.6 through -2.0 Severe -2.1 through -2.4 The Z-score is the number of standard deviations above or below age-matched controls. A Z-score of less than -1.5 would be considered abnormal. References: 1. NIH Osteoporosis and Related Bone Diseases www osteo.org 2. International Society for Clinical Densitometry www iscd.org 3. National Osteoporosis Foundation www nof.org Electronically Signed: Vamsi Valle MD at 14:46 EDT ,
[2022-01-31 09:23] LABS: Estradiol 11.8 pg/mL; Follicle Stimulating Hormone 79.4 mIU/mL
== END | disposition home or self-care (01) ==
PROVIDERS: PCP Family Medicine; Referring Provider Nurse Practitioner Women's Health; Visit Provider Nurse Practitioner Women's Health
DX: Z12.31 Encounter for screening mammogram for malignant neoplasm of breast (principal); M19.90 Unspecified osteoarthritis, unspecified site; N92.6 Irregular menstruation, unspecified; Z78.0 Asymptomatic menopausal state
CPT/HCPCS: 36415; 77063; 77067; 77080; 82670; 83001

== ENCOUNTER → 2022-06-20 | Outpatient (CLI) | payer OTHER, SELFPAY ==
[2022-06-20 10:43] LABS: ALB/GLOB Ratio 1.3 RATIO (0.9-2.4); AST(SGOT) 15 U/L (15-37); Alanine Aminotransfer ALT/SGPT 20 U/L (13-56); Albumin, Serum 4.3 g/dL (3.2-5.0); Alkaline Phosphatase 109 U/L (45-117); Anion Gap 6 (5-15); BUN 15 mg/dL (7-18); BUN/Creat Ratio 25.2 RATIO (10-20); Chloride 104 mmol/L (98-107); EST Glomerular Filtration Rate 113 mL/min (>60); Est Glom Filt Rate - Afr Amer 136 mL/min (>60); Globulin 3.2 g/dL (2.2-4.2); Glucose 78 mg/dL (74-106); Potassium 5.1 mmol/L (3.5-5.1); Protein, Total 7.5 g/dL (6.4-8.2); Sodium Level 141 mmol/L (136-145)
== END | disposition home or self-care (01) ==
LOC: MFPLAB 09:09
PROVIDERS: PCP Family Medicine; Referring Provider Family Medicine; Visit Provider Family Medicine
DX: M81.0 Age-related osteoporosis without current pathological fracture (principal)
CPT/HCPCS: 36415; 80053; 82306

== ENCOUNTER → 2023-02-06 | Outpatient (CLI) | payer OTHER, SELFPAY ==
--- NOTE | 2023-02-06 08:42 | BI_ITS ---
MAMMOGRAPHY - BILATERAL SCREENING REASON FOR EXAM: Female, 52 years old. Routine annual screening examination. PERTINENT HISTORY: Daughter with breast cancer. Mother with breast cancer. TECHNIQUE: Digital bilateral breast astrid (3D mammographic acquisition) in the CC and MLO projections. 2-D mediolateral oblique (MLO) and craniocaudad (CC) views of both breasts were obtained. CAD: Full Field Digital Mammography with Computer Added Detection was performed. COMPARISON: Comparison is made with prior examination dated January 31, 2022 and January 25, 2021. FINDINGS: Breast Composition: The breasts are extremely dense, which lowers the sensitivity of mammography. There are no dominant masses or suspicious calcifications. A tissue clip marker is seen in the central deep aspect of the right breast. No other significant abnormalities are identified. There has been no significant change since the prior study. BI/SCRN MAMM (CAD)W/ASTRID BILAT IMPRESSION: Stable bilateral screening mammogram. Yearly follow-up mammogram recommended. (A) ASSESSMENT CATEGORY: BIRADS Category 2: Benign. A letter regarding these results will be sent to the patient by the facility within 30 days. Approximately 10% of breast cancers are not detected by mammography. A normal mammogram should not delay biopsy of a clinically suspicious abnormality. [id number] Electronically Signed: Vamsi Valle MD at 10:44 EDT ,
[2023-02-06 10:19] LABS: T4 Free Direct 0.68 ng/dL (0.76-1.46); Thyroid Stim Hormone (TSH) 1.81 uIU/mL (0.358-3.74)
[2023-02-07 16:09] LABS: Thyroglobulin Antibody < 1.0 IU/mL (0.0-0.9); Thyroid Peroxidase AB 16 IU/mL (0-34)
== END | disposition home or self-care (01) ==
PROVIDERS: PCP Family Medicine; Referring Provider Nurse Practitioner Women's Health; Visit Provider Nurse Practitioner Women's Health
DX: Z12.31 Encounter for screening mammogram for malignant neoplasm of breast (principal); R23.2 Flushing; Z13.29 Encounter for screening for other suspected endocrine disorder; Z13.21 Encounter for screening for nutritional disorder
CPT/HCPCS: 36415; 77063; 77067; 82306; 84439; 84443; 86376; 86800

== ENCOUNTER → 2023-02-12 | Outpatient (CLI) | payer OTHER, SELFPAY ==
[2023-02-12 13:05] LABS: Mucous, Urine 0 SEEN /hpf (<or=2+)
[2023-02-12 13:52] LABS: Glucose, Dipstick Normal (Normal); Ketone-Dipstick 5 mg/dl (Negative); Leukocyte Esterase-Dipstick 500 /ul (Negative); Nitrite-Dipstick Positive (Negative); Occult Blood-Urine 250 /ul (Negative); Protein-Dipstick 30 mg/dl (Negative); Urine Clarity Sl. Cloudy (Clear); Urine Urobilinogen 12 mg/dl (Normal)
[2023-02-12 13:54] LABS: Color, Urine ORANGE (Yellow); Urine Bilirubin Dipstick 6 mg/dL (Negative)
[2023-02-12 14:16] LABS: Red Blood Cells-Urine 0-5 SEEN /hpf (0-5); Squamous Epithelial Cells - UA 0-5 SEEN /hpf (5-10); White Blood Cells 50-100 SEEN /hpf (0-5)
[2023-02-12 14:17] LABS: Bacteria 1+ /hpf (None Seen)
== END | disposition home or self-care (01) ==
LOC: LABSPEC 12:53
PROVIDERS: PCP Family Medicine; Referring Provider Physician Assistant Surgical; Visit Provider Physician Assistant Surgical
DX: R39.15 Urgency of urination (principal)
CPT/HCPCS: 81001; 87077; 87086; 87088; 87186

== ENCOUNTER 2023-06-28 10:21 | Outpatient (CLI) | payer OTHER, SELFPAY ==
[2023-06-28] MEDS: 0.9% NaCl Peripheral Flush Adult/Peds IV (10:36)
[2023-06-28] MEDS: Zoledronic Acid 5 MG 100 ML 300 MG IV (10:41)
[2023-06-28 10:46] VITALS: BP 124/76; PULSE 83; RESP 16; TEMP 36.6; O2SAT 99; BMI 24.0
[2023-06-28 11:10] VITALS: BP 129/79; PULSE 78; RESP 16; O2SAT 100
== END 2023-06-28 10:22 | disposition home or self-care (01) ==
LOC: MEDOUTP 10:21
PROVIDERS: PCP Family Medicine; Referring Provider Internal Medicine Endocrinology, Diabetes & Metabolism; Visit Provider Internal Medicine Endocrinology, Diabetes & Metabolism
DX: M81.0 Age-related osteoporosis without current pathological fracture (principal)
CPT/HCPCS: 96365; A4216; J3489

== ENCOUNTER → 2023-09-06 | Outpatient (CLI) | payer OTHER, SELFPAY ==
[2023-09-06 15:31] LABS: Absolute Lymphocyte Count 2.15 X10^3/uL (0.83-4.51); Absolute Neutrophil Count 5.3 X10^3/uL (2.0-7.7); Basophil# 0.05 X10^3/uL; Basophil% 0.6 % (0-1); Eosinophil# 0.11 X10^3/uL; Eosinophils% 1.3 % (0-5); Hematocrit 42.7 % (37-47); Hemoglobin 13.5 g/dL (12.0-15.0); Lymphocyte # 2.15 X10^3/ul (0.83-4.51); Lymphocyte % 26.2 % (19-41); Mean Corp Hgb Conc 31.6 g/dL (32-36); Mean Corpuscular Hgb 27.3 pg (27.0-32.0); Mean Corpuscular Volume 86.3 fL (81-99); Mean Platelet Vol. 9.9 fl (6.2-12.0); Monocyte# 0.64 X10^3/uL; Monocyte% 7.8 % (0-10); NRBC Flagged by Analyzer 0 % (0-5); Neutrophil # 5.25 X10^3/uL (2.7-7.7); Neutrophil % 63.9 % (47-70); Platelet Count 637 K/mm3 (150-450); RBC Distribution Width CV 13.3 % (11.6-14.6); RBC Distribution Width SD 41.8 fl (35.1-43.9); Red Blood Count 4.95 M/mm3 (4.2-5.4); White Blood Count 8.2 K/mm3 (4.4-11.0)
[2023-09-06 15:52] LABS: CRP < 2.90 mg/L (0.0-3.0); Rheumatoid Factor < 10.0 IU/mL (<15)
[2023-09-06 15:58] LABS: Erythrocyte Sedimentation Rate 3 mm/hr (0-30)
[2023-09-10 12:09] LABS: ANTINUCLEAR ANTIBODIES DIRECT Negative (Negative)
== END | disposition home or self-care (01) ==
LOC: MTLAB 14:07
PROVIDERS: PCP Family Medicine; Referring Provider Family Medicine; Visit Provider Family Medicine
DX: M25.539 Pain in unspecified wrist (principal)
CPT/HCPCS: 36415; 85025; 85652; 86038; 86140; 86431

== ENCOUNTER → 2023-09-20 | Outpatient (CLI) | payer OTHER, SELFPAY ==
--- NOTE | 2023-09-20 11:10 | RAD_ITS ---
EXAM: XR LUMBOSACRAL SPINE, 2 OR 3 VIEWS CLINICAL INDICATION: facet arthropathy TECHNIQUE: Frontal and lateral views of the lumbar spine and sacrum. COMPARISON: No relevant prior studies available. FINDINGS: VERTEBRAE: Normal vertebral body heights and alignment. No suspicious lytic or blastic lesions. DISC SPACES: Pronounced L5-S1 disc space height narrowing with mild endplate sclerosis. Normal remaining lumbar disc space heights. GASTROINTESTINAL TRACT: Unremarkable as visualized. Included bowel gas pattern is non-obstructive. RAD/Lumbar Spine 2 or 3 Views IMPRESSION: 1. L5-S1 degenerative disc space height narrowing with mild endplate sclerosis. 2. No acute fracture or malalignment and no acute osseous abnormality of the lumbar spine. Electronically Signed: Santos Ochoa MD at 16:40 EST ,
== END | disposition home or self-care (01) ==
LOC: MTRAD 11:10
PROVIDERS: PCP Family Medicine; Referring Provider Family Medicine; Visit Provider Family Medicine
DX: M47.819 Spondylosis without myelopathy or radiculopathy, site unspecified (principal)
CPT/HCPCS: 72100

== ENCOUNTER 2023-10-30 08:00 | Outpatient (RCR) | payer OTHER, SELFPAY ==
--- NOTE | 2023-10-09 13:13 | HP.PTEVAL_ITS ---
Patient's Visit Information Visit Information Visit Information: NADIRA WONG is a 53 year old F referred to Physical Therapy by Dr. Kareem Red MD with a diagnosis of DDD LUMBAR. Date of Evaluation: 10/09/23 Physical Therapist: Gary Locke, PT, Cert MDT, OCS Visit Plan Frequency: 2x /Week Duration: 4 Weeks Plan: PRECAUTIONS: RECENTLY DIAGNOSIS WITH OSTEOPOROSIS PT INTERVENTIONS GUILHERME EX'S ,DLS ,POSTURAL EX'S HIP STRENGHENING AND MODALTIES Subjective Subjective: This 53 y/o female presents to physical therapy with lumbar pain. Patient has had lumbar pain for for ~ 8 months. Patient developed back pain with injury ion right side . Tried Yoga helped. Seen Dr x-rays DDD and prescribed meloxicam. Location pain LS center. Aggregating twisting ,bending ,lifting. Alleviating medication ,rest . Pain [id number] sleeping. Denies coughing/sneezing- . Denies paresthesia/tingling -.Pain abnormal night pain. Patient bowel/bladder- . Trauma fell last year. Tried massage therapy. Patient symptoms affects QOL and function. Patient goals to decrease pain. 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 SOCIAL: Pain Right Back: Pain Intensity (Out of 10): 4 Pain Intensity Range: 10 Objective Objective: POSTURE: slight increase lordosis PALPATION: tender right LS/SI SYMMTRIES: Pelvis/PSIS/ASIS symmetrical GAIT: reciprocal pattern NEURO: denies paresthesia/tingling ,reflexes L3-4,L4-5 ,L5-S1 2/3 MMT: quads/hams 4/5 ,hip flexion 4-/5 ,ankle 5/5 LUMBAR ROM: flexion min loss pain, extension right side pain , side glides mid loss pain right IR: Balance/Special Test Scores Oswestry Low Back Score: 20 Goals Goal 1:: Patient to be I with HEP for back Goal Time Frame: 4-6 Weeks Goal 2:: Patient to improve lumbar ROM for function of recovery for job demands . Goal Time Frame: 4-6 Weeks Goal 3:: Patient to demonstrate 50% improvement with less pain and improved function with job demands Goal Time Frame: 4-6 Weeks Goal 4:: Patient to improve hip strength to 4/5 to improve function and job demands Goal Time Frame: 4-6 Weeks Goal 5:: Patient to improve back oswestry score by 5 points to improve QOL Goal Time Frame: 4-6 Weeks Rehabilitation Potential Physical Therapy Diagnosis: This patient has lumbar pain with possible dis vs foraminal stenosis with pain with positioning and motion testing some better with extension along with weakness in hips thus benefit from skilled PT Rehabilitation Potential: Good Anticipated Interventions Patient/Client Instruction: Educate patient on: Condition and Plan of Care For the Purpose of:: To decrease pain, To increase ROM, To improve muscle performance and motor function, To increase tolerance to activity/con dition/position, To improve ability of physical actions for home/community/work/leisure, To improve health of tissue, To decrease soft tissue restriction, To increase flexibility/ROM and To reduce risk of recurrence Therapeutic Exercise to Include: Strength training, Body mechanics, Postural training, Flexibilty training, Dynamic Lumbar Stabilization and Guilherme Exercises Comment: HIP STRENGTHENING For the Purpose of:: To decrease pain, To increase ROM, To improve muscle performance and motor function, To increase tolerance to activity/condition/position, To improve ability of physical actions for home/community/work/leisure, To improve gait and locomotor functions, To improve health of tissue, To decrease soft tissue restriction and To increase flexibility/ROM TENS: Yes IF ES: Yes Other electric stimulation: Yes Cryotherapy (ice pack, ice massage): Yes Thermo therapy (hot pack): Yes Ultrasound (thermal/non thermal): Yes For the Purpose of:: To decrease pain, To increase ROM, To improve nutrient delivery to tissue, To increase oxygenation perfusion, To improve health of tissue and To decrease soft tissue restriction Text: Thank you for the opportunity to evaluate your patient. For Medicare and Medicare HMO plans, please review the plan of care and approve it. It will need to be FAXED BACK to us at [phone] for Medicare purposes. For Medicare only, by signing this I certify the plan of care. Please let me know if there are questions or concerns regarding this plan of care. Physician Signature: Date:
--- NOTE | 2023-10-30 09:43 | HP.PTDCSUM_ITS ---
Discharge Summary D/C summary: It has been my pleasure to treat NADIRA WONG referred by Dr. Kareem Red MD, with the diagnosis of DDD LUMBAR for a total of 3 visit(s). Discharge Date: 10/30/23 Please see the following information for a summary of their discharge status. Subjective Subjective: Doing okay seems some better Affects sleeping Pain Right Back: Pain Intensity (Out of 10): 4 Overall Improvement % Improvement: 40 Objective Objective/Function: POSTURE: slight increase lordosis PALPATION: tender right LS/SI SYMMTRIES: Pelvis/PSIS/ASIS symmetrical GAIT: reciprocal pattern NEURO: denies paresthesia/tingling ,reflexes L3-4,L4-5 ,L5-S1 2/3 MMT: quads/hams 4/5 ,hip flexion 4-/5 ,ankle 5/5 LUMBAR ROM: flexion min loss pain, extension right side pain , side glides mid loss pain right Goals Goal 1:: Patient to be I with HEP for back Goal Progress: Goal Met Goal 2:: Patient to improve lumbar ROM for function of recovery for job demands . Goal Progress: Progressing Goal 3:: Patient to demonstrate 50% improvement with less pain and improved function with job demands Goal Progress: Progressing Goal 4:: Patient to improve hip strength to 4/5 to improve function and job demands Goal Progress: Progressing Goal 5:: Patient to improve back oswestry score by 5 points to improve QOL Goal Progress: Progressing Plan Plan: D/C HEP D/C Information Discharge Comments: HEP d/c sentence: If there are questions or concerns regarding this patient's physical therapy, pl ease feel free to call me at [phone]. Thank you for the referral of this patient. Sincerely, Gary Locke, PT, Cert MDT, OCS Balance/Gait/Functional tests Balance/Special Test Scores Oswestry Low Back Score: 6 Improvement % Improvement: 40
== END 2023-10-30 19:00 | disposition home or self-care (01) ==
LOC: PT 08:00
PROVIDERS: PCP Family Medicine; Referring Provider Family Medicine; Visit Provider Family Medicine
DX: M51.36 Other intervertebral disc degeneration, lumbar region (principal)
CPT/HCPCS: 97110; 97162

== ENCOUNTER → 2024-02-12 | Outpatient (CLI) | payer OTHER, SELFPAY ==
[2024-02-12 10:36] LABS: T4 Free Direct 0.83 ng/dL (0.76-1.46); Thyroid Stim Hormone (TSH) 2.25 uIU/mL (0.358-3.74)
[2024-02-12 10:56] LABS: Vitamin D,25 Hydroxy 67.6 ng/mL
[2024-02-13 16:10] LABS: Thyroglobulin Antibody < 1.0 IU/mL (0.0-0.9); Thyroid Peroxidase AB 12 IU/mL (0-34)
== END | disposition home or self-care (01) ==
LOC: PAVLAB 09:53
PROVIDERS: PCP Family Medicine; Referring Provider Nurse Practitioner Women's Health; Visit Provider Nurse Practitioner Women's Health
DX: R53.83 Other fatigue (principal)
CPT/HCPCS: 36415; 82306; 84439; 84443; 86376; 86800

== ENCOUNTER → 2024-02-19 | Outpatient (CLI) | payer OTHER, SELFPAY ==
--- NOTE | 2024-02-19 08:18 | BI_ITS ---
MAMMOGRAPHY - BILATERAL SCREENING REASON FOR EXAM: Female, 53 years old. Routine annual screening examination. PERTINENT HISTORY: Daughter with breast cancer. Mother with breast cancer. TECHNIQUE: Digital bilateral breast astrid (3D mammographic acquisition) in the CC and MLO projections. 2-D mediolateral oblique (MLO) and craniocaudad (CC) views of both breasts were obtained. CAD: Full Field Digital Mammography with Computer Added Detection was performed. COMPARISON: Comparison is made with prior study of February 06, 2023 and January 31, 2022. FINDINGS: Breast Composition: The breasts are extremely dense, which lowers the sensitivity of mammography. There are no dominant masses or suspicious calcifications. No other significant abnormalities are identified. There has been no significant change since the prior study. BI/SCRN MAMM (CAD)W/ASTRID BILAT IMPRESSION: Stable bilateral screening mammogram. Yearly follow-up mammogram recommended. (A) ASSESSMENT CATEGORY: BIRADS Category 1: Negative. A letter regarding these results will be sent to the patient by the facility within 30 days. Approximately 10% of breast cancers are not detected by mammography. A normal mammogram should not delay biopsy of a clinically suspicious abnormality. [id number] Electronically Signed: Vamsi Valle MD at 9:55 EDT ,
== END | disposition home or self-care (01) ==
LOC: OPBI 08:18
PROVIDERS: PCP Family Medicine; Referring Provider Nurse Practitioner Women's Health; Visit Provider Nurse Practitioner Women's Health
DX: Z12.31 Encounter for screening mammogram for malignant neoplasm of breast (principal); Z80.3 Family history of malignant neoplasm of breast
CPT/HCPCS: 77063; 77067

== ENCOUNTER 2024-03-12 07:18 | Day surgery (SDC) | payer OTHER, SELFPAY ==
[2024-03-12 07:41] VITALS: BP 119/84; PULSE 86; RESP 16; TEMP 37.2; O2SAT 97; BMI 23.5
[2024-03-12] MEDS: Lactated Ringers 1,000 ML 15 ML IV (07:48)
--- NOTE | 2024-03-12 08:39 | PCM.HP.STD ---
[facility] - General General Date of Service: 03/12/24 Chief Complaint: Screening colonoscopy [facility] Narrative NADIRA WONG, is a 53 F who presents for screening colonoscopy. She had a colonoscopy multiple years ago. It was normal. She does not have any problems with her bowels. She does have a past history of IBS but is not currently experiencing any symptoms at this time. Overall she is in very good health. [facility] Medical History Post-menopausal Depression Alcohol use Back pain History of ulceration Gastric reflux Non-smoker History of stress test Osteoarthritis Fatigue Home Medications ?Medication ?Instructions ?Recorded ?Last Taken ?Type ascorbic acid (vitamin C) 500 mg 500 mg PO DAILY 12/28/16 03/11/24 History chewable tablet pantoprazole 40 mg granules 20 mg PO QAM 01/25/21 03/11/24 History delayed-release for susp in packet (Protonix) bupropion HCl 150 mg 24 hr tablet, 300 mg PO QAM 05/27/23 03/11/24 History extended release (Wellbutrin XL) cholecalciferol (vitamin D3) 50 100 mcg PO DAILY 05/27/23 03/11/24 History mcg (2,000 unit) capsule melatonin 5 mg capsule 10 mg PO QHS PRN PRN Insomnia 05/27/23 03/10/24 History multivitamin (One Daily 1 tab PO DAILY 05/27/23 Unknown History Multivitamin tablet) zoledronic acid 5 mg/100 mL in 1 ea .Route .once a year #100 mL 06/17/23 06/07/23 Rx mannitol 5 %-water intravenous piggybck progesterone micronized 100 mg 100 mg PO QHS #30 caps 02/12/24 03/11/24 Rx capsule (Prometrium) estradiol 0.075 mg/24 hr 1 patch transdermal 2XW #8 ea 03/11/24 Unknown Rx semiweekly transdermal patch (Vivelle-Dot) Allergy/AdvReac Type Severity Reaction Status Date / Time clarithromycin (From Biaxin) Allergy Hives Verified 03/12/24 07:37 Family History Father Diabetes Cancer prostate Multiple myeloma Daughter Breast cancer Mother Uterine cancer Surgical History History of esophagogastroduodenoscopy (EGD) Hx of colonoscopy History of cholecystectomy History of appendectomy Stomach tumor (benign) Social History household members: spouse Smoking Status: Never smoker alcohol intake: current alcohol intake frequency: a few times a week Alcohol type: wine details: social substance use type: does not use caffeine: Yes frequency: 1-2 times per week seatbelt use: always do you feel safe at home: Yes 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 Review of Systems ROS Unobtainable: other Constitutional Constitutional: Denies fatigue, fever(s), poor appetite, weight gain or weight loss ENT HEENT: Denies mouth lesions Cardiovascular Cardiovascular: Denies abdominal bloating, abdominal edema or abdominal pain Respiratory/Chest Respiratory/Chest: Denies change in mental status, change in phlegm color, chest congestion or chest tightness Gastrointestinal Gastrointestinal: Denies belching, bloating, change in bowel habits, change in stool character, chewing difficulty, coffee ground emesis, constipation, cramping, diarrhea, dyspepsia, dysphagia, early satiety, excessive flatus, fecal incontinence, heartburn, hematemesis, hematochezia, hemorrhoids, loose stools, melena, nausea, odynophagia, rectal bleeding, tenesmus, vomiting or weight changes Genitourinary Genitourinary: Denies abdominal discomfort, burning urination or itching Musculoskeletal Musculoskeletal: Reports as per HPI; Denies muscle weakness or myalgias Integumentary Integumentary: Denies jaundice Neurologic Neurologic: Denies lack of coordination or weakness Psychiatric Psychiatric: Denies confusion, depression, memory loss, mood swings, paranoia or suicidal ideation Endocrine Endocrinology: Denies systems reviewed and no addt'l complaints, except as documented Hematologic/Lymphatic Hematologic/Lymphatic: Denies anemia, easy bleeding, easy bruising or lymphadenopathy Allergic/Immunologic Allergic/Immunologic: Denies systems reviewed and no addt'l complaints, except as documented Vital Signs Vital Signs Vital Signs: 03/12/24 07:39 03/12/24 07:41 Temperature 99.0 F Temperature Source Temporal Pulse Rate 86 Respiratory Rate 16 Respiratory Pattern Normal Blood Pressure 119/84 H Blood Pressure Mean 95 Blood Pressure Source Monitor Blood Pressure Position Semi-Fowlers Blood Pressure Location Right Arm Pulse Ox 97 Oxygen Delivery Method Room Air Weight Weight: 137 lb 3.2 oz Body Mass Index (BMI) 23.5 Assessment & Plan Assessment/Plan (1) Encounter for screening for malignant neoplasm of colon: PLAN: She will undergo screening colonoscopy. She was explained alternatives, risks, benefits include not withstanding bleeding, infection, sepsis, perforation, need for emergent urgent . She have an ASA of 3.
[2024-03-12 09:32] VITALS: BP 119/84; BP 132/83; PULSE 80; RESP 16; TEMP 35.9; O2SAT 100
[2024-03-12 09:35] VITALS: BP 119/84; BP 134/84; PULSE 77; RESP 16; O2SAT 100
--- NOTE | 2024-03-12 09:37 | OP.CCLET_ITS ---
03/12/2024 Kareem Red [address] [place] [address] Re : Colonoscopy procedure for [facility] Dear Dr. Red This procedure was performed on March. My impressions and recommendations are as follows: Impressions : - Tortuous colon. - No specimens collected. Recommendations : - Discharge patient to home. - Resume previous diet. - Continue present medications. - Repeat colonoscopy in 10 years for screening purposes. My findings are described in the full procedure note, which is enclosed. If I can be of further assistance, please feel free to contact me at . Sincerely, Juan Russo, 03/12/2024 9:37:10 AM This report has been signed electronically.
--- NOTE | 2024-03-12 09:37 | OP.COLON_ITS ---
Patient Name: Consuelo Tejeda Procedure Date: 03/12/2024 8:49 AM Date of : 1970 Age: 53 Procedure: Colonoscopy Indications: Screening for colorectal malignant neoplasm Providers: Juan Russo DO Referring MD: Kareem Red Medicines: Monitored Anesthesia Care Patient Profile: This is a 53 year old female. Refer to note in patient chart for documentation of history and physical. Last Colonoscopy: 10 years ago. Complications: No immediate complications. Procedure: Pre-Anesthesia Assessment: - Prior to the procedure, a History and Physical was performed, and patient medications and allergies were reviewed. The patient is competent. The risks and benefits of the procedure and the sedation options and risks were discussed with the patient. All questions were answered and informed consent was obtained. Patient identification and proposed procedure were verified by the physician in the pre-procedure area. Mental Status Examination: alert and oriented. Airway Examination: normal oropharyngeal airway and neck mobility. Respiratory Examination: clear to auscultation. CV Examination: normal. Prophylactic Antibiotics: The patient does not require prophylactic antibiotics. Prior Anticoagulants: The patient has taken no anticoagulant or antiplatelet agents. ASA Grade Assessment: II - A patient with mild systemic disease. After reviewing the risks and benefits, the patient was deemed in satisfactory condition to undergo the procedure. The anesthesia plan was to use monitored anesthesia care (MAC). Immediately prior to administration of medications, the patient was re-assessed for adequacy to receive sedatives. The heart rate, respiratory rate, oxygen saturations, blood pressure, adequacy of pulmonary ventilation, and response to care were monitored throughout the procedure. The physical status of the patient was re-assessed after the procedure. After I obtained informed consent, the scope was passed under direct vision. Throughout the procedure, the patient's blood pressure, pulse, and oxygen saturations were monitored continuously. The colonoscope was introduced through the anus and advanced to the cecum, identified by appendiceal orifice and ileocecal valve. The colonoscopy was performed without difficulty. The patient tolerated the procedure well. The quality of the bowel preparation was good. The ileocecal valve, appendiceal orifice, and rectum were photographed. Scope In: 8:50:41 AM Scope Withdrawal Time 0 hours 5 minutes 48 seconds Scope Out: 9:27:25 AM Total Procedure Duration Time 0 hours 36 minutes 44 seconds Findings: The perianal and digital rectal examinations were normal. The recto-sigmoid colon, sigmoid colon, hepatic flexure and ascending colon were grossly tortuous. Advancing the scope required applying abdominal pressure. Impression: - Tortuous colon. - No specimens collected. Recommendation: - Discharge patient to home. - Resume previous diet. - Continue present medications. - Repeat colonoscopy in 10 years for screening purposes. Procedure Code(s): --- Professional --- G0121, Colorectal cancer screening; colonoscopy on individual not meeting criteria for high risk CPT copyright 2021 [employer]. All rights reserved. The codes documented in this report are preliminary and upon customs patrol officer review may be revised to meet current compliance requirements. Juan Russo DO 03/12/2024 9:37:10 AM This report has been signed electronically. Number of Addenda: 0 Note Initiated On: 03/12/2024 8:49 AM
[2024-03-12 09:40] VITALS: BP 119/84; BP 125/75; PULSE 79; RESP 16; O2SAT 100
[2024-03-12 09:45] VITALS: BP 119/84; BP 123/72; PULSE 75; RESP 16; TEMP 36.3; O2SAT 100
== END 2024-03-12 10:19 | disposition home or self-care (01) ==
LOC: EN 07:19 → AC 07:20
PROVIDERS: PCP Family Medicine; Referring Provider Family Medicine; Visit Provider Internal Medicine Gastroenterology
PROC: 0DJD8ZZ Inspection of Lower Intestinal Tract, Via Natural or Artificial Opening Endoscopic (ICD-10-PCS; CPT 45378; principal; 2024-03-12 08:25)
DX: Z12.11 Encounter for screening for malignant neoplasm of colon (principal); Z87.19 Personal history of other diseases of the digestive system; K21.9 Gastro-esophageal reflux disease without esophagitis; Z79.899 Other long term (current) drug therapy; Q43.8 Other specified congenital malformations of intestine; Z90.49 Acquired absence of other specified parts of digestive tract
CPT/HCPCS: G0121; J7120; J2405

== ENCOUNTER 2024-07-03 08:42 | Outpatient (CLI) | payer OTHER, SELFPAY ==
[2024-07-03 08:55] VITALS: BP 109/69; PULSE 95; RESP 16; TEMP 36.3; O2SAT 98; BMI 21.5
[2024-07-03] MEDS: 0.9% NaCl Peripheral Flush Adult/Peds IV (09:12)
[2024-07-03] MEDS: Zoledronic Acid 5 MG 100 ML 200 MG IV (09:12)
[2024-07-03 09:50] VITALS: BP 106/70; PULSE 86; RESP 16; TEMP 36.4; O2SAT 99
== END 2024-07-03 23:59 | disposition home or self-care (01) ==
LOC: MEDOUTP 08:43
PROVIDERS: PCP Family Medicine; Referring Provider Internal Medicine Endocrinology, Diabetes & Metabolism; Visit Provider Internal Medicine Endocrinology, Diabetes & Metabolism
DX: M81.0 Age-related osteoporosis without current pathological fracture (principal)
CPT/HCPCS: 96365; A4216; J3489

== ENCOUNTER → 2025-03-03 | Outpatient (CLI) | payer OTHER, SELFPAY ==
--- NOTE | 2025-03-03 12:44 | BI_ITS ---
EXAM: SCRN MAMM (CAD)W/ASTRID BILAT 03/03/2025 CLINICAL HISTORY: F, Age 54 y/o , SCREENING TECHNIQUE: Bilateral screening digital breast tomosynthesis with 2D and 3D images. Computer aided detection. COMPARISON: Prior exam(s) dated 02/19/2024, 02/06/2023. FINDINGS: TISSUE DENSITY: The breast tissue is heterogenously dense, which may obscure small masses. The mammogram demonstrates that the patient has dense breasts. Supplemental screening with whole breast ultrasound or MRI may be considered for further evaluation. Bilateral Breast Mammographic Findings: No significant masses, calcifications or other abnormalities are identified. BI/SCRN MAMM (CAD)W/ASTRID BILAT IMPRESSION: Right Breast: BIRADS 1 NEGATIVE. Left Breast: BIRADS 1 NEGATIVE. OVERALL FINAL ASSESSMENT: BIRADS 1 NEGATIVE. RECOMMENDATION: Routine annual follow-up in 1 Year A letter with findings and recommendations will be mailed to the patient. Reading Location: [id number]
== END | disposition home or self-care (01) ==
LOC: OPBI 12:43
PROVIDERS: PCP Family Medicine; Referring Provider Family Medicine; Visit Provider Family Medicine
DX: Z12.31 Encounter for screening mammogram for malignant neoplasm of breast (principal)
CPT/HCPCS: 77063; 77067

== ENCOUNTER → 2025-03-03 | Outpatient (CLI) | payer OTHER, SELFPAY ==
[2025-03-03 12:33] LABS: Absolute Lymphocyte Count 2.05 X10^3/uL (0.83-4.51); Absolute Neutrophil Count 7.1 X10^3/uL (2.0-7.7); Basophil# 0.04 X10^3/uL; Basophil% 0.4 % (0-1); Eosinophil# 0.32 X10^3/uL; Eosinophils% 3.2 % (0-5); Hematocrit 40.1 % (37-47); Hemoglobin 13.2 g/dL (12.0-15.0); Lymphocyte # 2.05 X10^3/ul (0.83-4.51); Lymphocyte % 20.2 % (19-41); Mean Corp Hgb Conc 32.9 g/dL (32-36); Mean Corpuscular Volume 88.1 fL (81-99); Mean Platelet Vol. 10.4 fl (6.2-12.0); Monocyte# 0.57 X10^3/uL; Monocyte% 5.6 % (0-10); NRBC Flagged by Analyzer 0 % (0-5); Neutrophil # 7.12 X10^3/uL (2.7-7.7); Neutrophil % 70.3 % (47-70); Platelet Count 591 K/mm3 (150-450); RBC Distribution Width CV 13.1 % (11.6-14.6); RBC Distribution Width SD 42.5 fl (35.1-43.9); Red Blood Count 4.55 M/mm3 (4.2-5.4); White Blood Count 10.1 K/mm3 (4.4-11.0)
[2025-03-03 13:18] LABS: ALB/GLOB Ratio 1.8 RATIO (0.9-2.4); AST(SGOT) 24 U/L (<=31); Alanine Aminotransfer ALT/SGPT 16 U/L (<=34); Albumin, Serum 4.5 g/dL (3.5-5.0); Alkaline Phosphatase 65 U/L (35-104); Anion Gap 10 (5-15); BUN 11 mg/dL (4-19); BUN/Creat Ratio 16.8 RATIO (10-20); Calcium,Total 9.8 mg/dL (7.6-11.0); Carbon Dioxide 26.6 mmol/L (21.0-32.0); Chloride 104 mmol/L (98-108); Creatinine, Serum 0.67 mg/dL (0.70-1.20); EST Glomerular Filtration Rate 104 (>60); Globulin 2.5 g/dL (2.2-4.2); Glucose 83 mg/dL (70-99); Magnesium 1.8 mg/dL (1.5-2.2); Potassium 4.4 mmol/L (3.3-5.1); Protein, Total 7.1 g/dL (5.9-8.4); Sodium Level 141 mmol/L (133-145); Total Bilirubin 1.22 mg/dL (0.00-1.30); Vitamin D,25 Hydroxy 54.8 ng/mL (30-100)
== END | disposition home or self-care (01) ==
LOC: MFPLAB 09:55
PROVIDERS: PCP Family Medicine; Referring Provider Family Medicine; Visit Provider Family Medicine
DX: K21.9 Gastro-esophageal reflux disease without esophagitis (principal); M81.0 Age-related osteoporosis without current pathological fracture
CPT/HCPCS: 36415; 80053; 82306; 83735; 85025

== ENCOUNTER → 2025-05-24 | Outpatient (CLI) | payer OTHER, SELFPAY | END | disposition home or self-care (01) | LOC: LABSPEC 08:37 | PROVIDERS: PCP Family Medicine; Referring Provider Internal Medicine Endocrinology, Diabetes & Metabolism; Visit Provider Internal Medicine Endocrinology, Diabetes & Metabolism | DX: R30.0 Dysuria (principal); M81.0 Age-related osteoporosis without current pathological fracture | CPT/HCPCS: 87086; 87088 ==

== ENCOUNTER → 2025-05-26 | Outpatient (CLI) | payer OTHER, SELFPAY | END | disposition home or self-care (01) | LOC: LABSPEC 16:45 | PROVIDERS: PCP Family Medicine; Visit Provider Nurse Practitioner Family | DX: N39.0 Urinary tract infection, site not specified (principal) | CPT/HCPCS: 87077; 87086; 87088; 87186 ==

== ENCOUNTER 2025-06-30 19:32 | Emergency (ER) | payer OTHER, SELFPAY ==
[2025-06-30 19:33] VITALS: BP 149/79; PULSE 99; RESP 20; TEMP 36.3; O2SAT 100; BMI 24.8
--- OUTSIDE RECORDS SUMMARY | 2025-06-30 20:06 | XMS RPT_ITS | CCD ---
Author Organization [facility] Care Team Providers Care Utility Operator Yarn Name Role Phone Dr. Daniel Jay Primary Care Provider Dr. Daniel Jay Referring Provider DoctorDr. Lew Attending Provider [place] PHYSICIAN OFFICE NURSE, KI-Jose Daniel Gutierrez Attending Provider Trudi Silverio Primary Care Provider Dr. Trudi Silverio Primary Care Provider Dr. Trudi Silverio Referring Provider [place] PHYSICIAN OFFICE NURSEKI-Jose Daniel Gutierrez Attending Provider RASHEEDA Marquez Attending Provider TRUDI SILVERIO Primary Care RAMANDEEP Galo Referring Unavailable ALINA SCHWARZ Attending Unavailable TRUDI SILVERIO Primary Care RAMANDEEP Galo Attending Unavailable , ALINA Referring Unavailable TRUDI SILVERIO Referring TRUDI Juarez Primary Care UnavailALINA Robison Attending Unavailable Dr. Trudi Silverio Primary Care Provider Dr. Trudi Silverio Referring Provider Dr. Cornelius Gardner Attending Provider Trudi Silverio MD Primary Care Provider Dr. Trudi Silverio Primary Care Provider Dr. Trudi Silverio Referring Provider Dr. Cornelius Gardner Attending Provider Neda JIM, Dr. Trudi Guaman Primary Care Provider Neda JIM, Dr. Trudi Guaman Attending Provider Neda JIM, Dr. Trudi Guaman Referring Provider [place] PHYSICIAN OFFICE NURSE-CBrenda Attending Provider King DIANDRA, Dr. Shields Attending Provider King DIANDRA, Dr. Shields Referring Provider Juan PHYSICIAN OFFICE NURSE-CFrancie Attending Provider Trudi Silverio Attending Unavailable Trudi Silverio Referring Unavailable SchTrudi kunz Primary Care Unavailable Trudi Silverio Attending Unavailable SchTrudi kunz Referring Unavailable SchTrudi kunz Primary Care Unavailable Cornelius Gardner Attending Unavailable Cornelius Gardner Referring Unavailable Trudi Silverio Primary Care Unavailable Juan PHYSICIAN OFFICE NURSE, Francie Attending Unavailable Trudi Silverio Primary Care Unavailable Trudi Silverio Referring Unavailable Trudi Silverio Primary Care Unavailable Brenda Triana NP Attending Unavailable Cornelius Gardner Attending Unavailable Trudi Silverio Referring Unavailable Trudi Silverio Primary Care Unavailable Trudi Silverio Primary Care Unavailable Cornelius Gardner Attending Unavailable Cornelius Gardner Referring Unavailable Allergies Allergy Classification Reported Allergen(s) Allergy Type Date of Onset Reaction(s) Facility (19 sources) Clarithromycin; Translations: [CLARITHROMYCIN] Drug Allergy 7 [facility] Work Phone: (1 source) Clarithromycin Drug Allergy 5 [facility] Medications Current Medications Medication Drug Class(es) Dates Sig (Normalized) Sig (Original) ascorbic acid 500 mg chewable tablet (18 sources) Vitamin C Start: 12-28-2016 take 1 tablet by mouth once daily Ascorbic Acid (Vitamin C) 500 MG tablet,chewable Active 500 mg PO DAILY December 28, 2016 12:00am Start: 08-09-2009 End: 03-26-2023 ascorbic acid(CHEWABLE VITAM IN C 250 MG TAB) Take one tab(s) daily 0 08/09/2009 03/26/2023 Discontinued Comment on above: Take one tab(s) samira y Black cohosh root extract (13 sources) Start: 01-31-2022 Black Cohosh Root Extract (Remifemin Menopause) 2.5 mg tablet Active MG PO January 31, 2022 8:15am Start: 01-31-2022 End: 02-06-2023 Black Cohosh Root Extract (R emifemin Menopause) 2.5 mg tablet Discontinued mg PO January 31, 2022 12:00am February 06, 2023 9:05am Start: 01-31-2022 End: 02-06-2023 Black Cohosh Root Extract (R emifemin Menopause) 2.5 mg tablet Discontinued MG PO January 30, 2022 11:00pm February 06, 2023 8:05am Start: 01-31-2022 End: 02-06-2023 Black Cohosh Root Extract (R emifemin Menopause) 2.5 mg tablet Discontinued MG PO January 31, 2022 12:00am February 06, 2023 9:05am Start: 01-31-2022 Black Cohosh R oot Extract (Remifemin Menopause) 2.5 mg tablet Active MG PO January 31, 2022 12:00am cholecalciferol 0.125 mg oral capsule (20 sources) Vitamin D Start: 05-24-2025 take 1 capsule by mouth once daily Cholecalciferol (Vitamin D3) 125 mcg (5,000 unit) capsule Active 125 ug PO daily May 24, 2025 12:00am Start: 05-27-2023 End: 05-24-2025 take 1 capsule by mouth once daily Cholecalciferol (Vitamin D3) 50 mcg (2,000 unit) capsule Discontinued 100 ug PO DAILY May 27, 2023 8:07am May 24, 2025 8:00am Start: 01-25-2021 End: 05-27-2023 take 1 capsule by mouth once daily Cholecalciferol (Vitamin D3) 50 mcg (2,000 unit) capsule Discontinued 50 ug PO DAILY January 25, 2021 12:00am May 27, 2023 8:08am Start: 01-20-2020 End: 09-07-2020 take 1 capsule by mouth once daily Cholecalciferol (Vitamin D3) 50 mcg (2,000 unit) capsule Discontinued 2000 U PO DAILY January 20, 2020 12:00am September 07, 2020 3:01pm cholecalciferol (VITAMIN D3) 5,000 unit tab Take 4,000 Units by mouth once daily. 0 Active Comment on above: Take 4,000 Units by mouth once daily. collagen peptide (13 sources) Start: 01-25-2021 collagen pepti de Active PO January 25, 2021 9:16am Start: 01-25-2021 End: 05-27-2023 collagen peptide Discontinue d PO 0 January 25, 2021 12:00am May 27, 2023 8:07am Start: 01-25-2021 End: 05-27-2023 collagen peptide Discontinue d PO January 24, 2021 11:00pm May 27, 2023 7:07am Start: 01-25-2021 End: 05-27-2023 collagen peptide Discontinue d PO January 25, 2021 12:00am May 27, 2023 8:07am Start: 01-25-2021 collagen pepti de Active PO January 25, 2021 12:00am cosamine (13 sources) Start: 01-31-2022 cosamine Activ e PO January 31, 2022 8:14am Start: 01-31-2022 End: 02-06-2023 cosamine Discontinued PO 0 A pril 2021 12:00am February 06, 2023 9:05am Start: 01-31-2022 End: 02-06-2023 cosamine Discontinued PO Apr il 2021 11:00pm February 06, 2023 8:05am Start: 01-31-2022 End: 02-06-2023 cosamine Discontinued PO Apr il 2021 12:00am February 06, 2023 9:05am Start: 01-31-2022 cosamine Activ e PO January 31, 2022 12:00am melatonin 5 mg oral capsule (20 sources) Start: 05-27-2023 take 2 capsules by mouth at bedtime as needed Melatonin 5 mg capsule Active 10 mg PO AT BEDTIME NEEDED as needed for Insomnia 0 May 27, 2023 8:07am Start: 05-27-2023 take 10 mg by mouth at bedtime as needed Melatonin Active 10 MG PO AT BEDTIME NEEDED May 27, 2023 7:07am Start: 02-03-2018 End: 05-27-2023 take 1 capsule by mouth at bedtime as needed Melatonin 5 mg capsule Discontinued 5 mg PO AT BEDTIME NEEDED as needed for Insomnia 0 February 03, 2018 12:00am May 27, 2023 8:08am take 1 tablet by telma th every twenty-four hours as needed melatonin 10 mg tab Take 1 tablet by mouth at bedtime as needed. 0 Active Comment on above: Take 1 tablet by telma th at bedtime as needed. Multivitamin (One Daily Multivitamin) tablet (10 sources) Start: 05-27-2023 take 1 tablet by mouth once daily Multivitamin (One Daily Multivitamin) tablet Active 1 {tbl} PO DAILY May 27, 2023 12:00am Start: 05-27-2023 take 1 tablet by telma th once daily Multivitamin (One Daily Multivitamin) tablet Active 1 TABLET PO DAILY May 26, 2023 11:00pm Start: 05-27-2023 take 1 tablet by telma th once daily Multivitamin (One Daily Multivitamin) tablet Active 1 TABLET PO DAILY May 27, 2023 12:00am pantoprazole 40 mg oral granules (20 sources) Proton Pump Inhibitor Start: 01-25-2021 take 20 mg by mouth once daily in the morning Pantoprazole (Protonix) [address] for susp in packet Active 20 mg PO EVERY MORNING January 25, 2021 9:11am Start: 02-03-2018 End: 01-25-2021 take 40 mg by mouth once daily in the morning Pantoprazole (Protonix) [address] for susp in packet Discontinued 40 mg PO EVERY MORNING February 03, 2018 12:00am January 25, 2021 9:12am Start: 07-26-2017 take 1 tablet by telma th twice daily pantoprazole DR (PROTONIX) 40 mg tablet Take 1 tablet by mouth twice daily. 60 tablet 1 07/26/2017 Active Comment on above: Take 1 tablet by telma th twice daily. polyethylene glycol 3350 01968 mg powder for oral solution (3 sources) Osmotic Laxative Start: 05-24-2025 Polyethylene Glycol 3350 (Miralax) 17 gram/dose powder Active 4 g PO daily as needed May 24, 2025 12:00am Completed/Discontinued Medications Medication Drug Class(es) Dates Sig (Normalized) Sig (Original) acetaminophen 32 mg/ml oral solution (5 sources) Start: 07-10-2017 End: 03-26-2023 take 650 mg by mouth every six hours as needed acetaminophen (TYLENOL) 650 mg/20.3 mL soln Take 20.3 mL by mouth every 6 hours as needed (headache). 0 07/10/2017 03/26/2023 Discontinued Comment on above: Take 20.3 mL by mout h every 6 hours as needed (headache). acetaminophen 325 mg / HYDROcodone bitartrate 5 mg oral tablet (13 sources) Opioid Agonist Start: 12-28-2016 End: 12-18-2017 Hydrocodone-Acetami nophen 1 TABLET tablet Discontinued 1 - 2 {tbl} PO EVERY 6 HOURS NEEDED as needed for Pain 12 0 December 28, 2016 12:00am December 18, 2017 8:51am Start: 12-28-2016 End: 12-18-2017 take 1 tablet by mouth every six hours as needed Hydrocodone-Acetaminophen Discontinued 1 - 2 TABLET PO EVERY 6 HOURS NEEDED December 27, 2016 11:00pm December 18, 2017 7:51am Black Cohosh (13 sources) Start: 01-25-2021 End: 01-31-2022 take 20 mg by mouth once daily Black Cohosh Discontinued 20 MG PO DAILY January 25, 2021 9:16am January 31, 2022 8:13am Start: 01-25-2021 End: 01-31-2022 take 1 capsule by mouth once daily Black Cohosh 540 mg capsule Discontinued 20 mg PO DAILY January 25, 2021 12:00am January 31, 2022 8:13am Start: 01-25-2021 End: 01-31-2022 take 20 mg by mouth once daily Black Cohosh Discontinu ed 20 MG PO DAILY January 24, 2021 11:00pm January 31, 2022 7:13am Start: 01-25-2021 End: 01-31-2022 take 20 mg by mouth once daily Black Cohosh Discontinu ed 20 MG PO DAILY January 25, 2021 12:00am January 31, 2022 8:13am 24 hr buPROPion hydrochloride 150 mg extended release oral tablet (20 sources) Aminoketone Start: 03-03-2025 End: 05-24-2025 take 1 tablet by mouth once daily in the morning Bupropion Hcl (Wellbutrin Xl) 150 mg tablet extended release 24 hr Discontinued 150 mg PO EVERY MORNING March 03, 2025 12:00am May 24, 2025 8:00am Start: 05-27-2023 End: 03-03-2025 Bupropion Hcl (Wellbutrin Xl ) 150 mg tablet extended release 24 hr Discontinued 300 mg PO EVERY MORNING May 27, 2023 8:06am March 03, 2025 1:15pm Start: 02-06-2023 End: 05-27-2023 take 1 tablet by mouth once daily in the morning Bupropion Hcl (Wellbutrin Xl) 150 mg tablet extended release 24 hr Discontinued 150 mg PO EVERY MORNING February 06, 2023 12:00am May 27, 2023 8:08am Start: 01-25-2021 End: 01-31-2022 take 1 tablet by mouth once daily Bupropion Hcl (Wellbutrin Sr) 150 mg tablet sustained-release 12 hr Discontinued 300 mg PO DAILY January 25, 2021 9:11am January 31, 2022 8:13am Start: 01-20-2020 End: 01-25-2021 take 1 tablet by mouth once daily Bupropion Hcl (Wellbutrin Sr) 150 mg tablet sustained-release 12 hr Discontinued 150 mg PO DAILY January 20, 2020 12:00am January 25, 2021 9:12am Comment on above: Take 150 mg by mouth once daily. calcium carbonate 1500 mg / cholecalciferol 800 unt chewable tablet (20 sources) Vitamin D Start: 01-20-2020 End: 09-07-2020 Calcium Carbonate-Vitamin D3 600 mg(1,500mg) -400 unit tablet,chewable Discontinued 1 {tbl} PO .occasionally January 20, 2020 9:15am September 07, 2020 3:00pm Start: 01-20-2020 End: 09-07-2020 Calcium Carbonate-Vitamin D3 Discontinued 1 TABLET PO .occasionally January 20, 2020 8:15am September 07, 2020 2:00pm Start: 12-28-2016 End: 01-20-2020 Calcium Carbonate-Vitamin D3 1 EACH tablet,chewable Discontinued 1 NMA PO DAILY December 28, 2016 12:00am January 20, 2020 9:16am Start: 12-28-2016 End: 01-20-2020 Calcium Carbonate-Vitamin D3 Discontinued 1 EACH PO DAILY December 27, 2016 11:00pm January 20, 2020 8:16am Start: 11-29-2011 End: 03-26-2023 take 1 tablet by mouth twice daily Calcium-Cholecalciferol, D3, 600-125 mg-unit tab Take 1 tablet by mouth twice daily. 0 11/29/2011 03/26/2023 Discontinued Comment on above: Take 1 tablet by telma th twice daily. celecoxib 200 mg oral capsule (13 sources) Nonsteroidal Anti-inflammatory Drug Start: 01-26-20 End: 02-01-20 take 1 capsule by mouth once daily Celecoxib (Celebrex) 200 mg capsule Discontinued 200 mg PO DAILY January 25, 2021 12:00am January 31, 2022 8:14am citalopram 10 mg oral tablet (13 sources) Serotonin Reuptake Inhibitor Start: 01-15-20 End: 01-20-20 take 1 tablet by mouth once daily Citalopram (Celexa) 10 mg tablet Discontinued 10 mg PO DAILY January 14, 2019 12:00am January 20, 2020 9:14am 84 hr estradiol 0.53736 mg/hr transdermal system (20 sources) Estrogen Start: 12-08-19 End: 05-24-20 apply 1 dose transdermal route two times weekly, then apply 1 dose transdermal route every hour Estradiol (Vivelle-Dot) 0.05 mg/24 hr patch semiweekly Discontinued 1 NMA TD TWICE A WEEK 24 December 07, 2024 1:00am May 24, 2025 8:01am apply 1 patch for 3 days alternating with 1 patch for 4 days each week Start: 03-11-2024 End: 12-07-2024 apply 1 dose transdermal route two times weekly, then apply 1 dose transdermal route every hour Estradiol (Vivelle-Dot) 0.075 mg/24 hr patch semiweekly Discontinued 1 NMA TD TWICE A WEEK 8 March 11, 2024 12:00am December 07, 2024 11:28am apply 1 patch for 3 days alternating with 1 patch for 4 days each week Start: 02-12-2024 End: 03-11-2024 apply 1 dose transdermal route two times weekly, then apply 1 dose transdermal route once Estradiol 0.05 mg/24 hr patch semiweekly Discontinued 1 NMA TD TWICE A WEEK 8 March 11, 2024 2:33pm March 11, 2024 2:35pm apply 1 patch for 3 days alternating with 1 patch for 4 days each week Levonorgestrel-Ethinyl Estrad (20 sources) Progestin, Estrogen, Progestin-containing Intrauterine Device Start: 04-26-2020 End: 07-31-2020 take 1 tablet by mouth once daily Levonorgestrel-Ethinyl Estrad (Aviane) 0.1-20 mg-mcg tablet Discontinued 1 {tbl} PO daily 84 April 26, 2020 7:40am July 31, 2020 6:43pm Start: 04-26-2020 End: 07-31-2020 take 1 tablet by mouth once daily Levonorgestrel-Ethinyl Estrad (Aviane) 0.1-20 mg-mcg tablet Discontinued 1 {tbl} PO daily April 26, 2020 7:40am July 31, 2020 6:43pm Start: 04-26-2020 End: 07-31-2020 take 1 tablet by mouth once daily Levonorgestrel-Ethinyl Estrad (Aviane) 0.1-20 mg-mcg tablet Discontinued 1 TABLET PO daily April 26, 2020 6:40am July 31, 2020 5:43pm Start: 04-26-2020 End: 07-31-2020 take 1 tablet by mouth once daily Levonorgestrel-Ethinyl Estrad (Aviane) 0.1-20 mg-mcg tablet Discontinued 1 TABLET PO daily April 26, 2020 7:40am July 31, 2020 6:43pm Start: 01-20-2020 End: 04-26-2020 take 1 tablet by mouth once daily Levonorgestrel-Ethinyl Estrad (Aviane) 0.1-20 mg-mcg tablet Discontinued 1 TABLET PO daily January 20, 2020 9:35am April 26, 2020 7:40am Start: 01-20-2020 End: 04-26-2020 take 1 tablet by mouth once daily Levonorgestrel-Ethinyl Estrad (Aviane) 0.1-20 mg-mcg tablet Discontinued 1 {tbl} PO daily 84 January 20, 2020 12:00am April 26, 2020 7:40am Start: 01-20-2020 End: 04-26-2020 take 1 tablet by mouth once daily Levonorgestrel-Ethinyl Estrad (Aviane) 0.1-20 mg-mcg tablet Discontinued 1 {tbl} PO daily 84 January 20, 2020 12:00am April 26, 2020 7:40am Start: 01-20-2020 End: 04-26-2020 take 1 tablet by mouth once daily Levonorgestrel-Ethinyl Estrad (Aviane) 0.1-20 mg-mcg tablet Discontinued 1 TABLET PO daily 84 January 19, 2020 11:00pm April 26, 2020 6:40am Start: 01-20-2020 End: 04-26-2020 take 1 tablet by mouth once daily Levonorgestrel-Ethinyl Estrad (Aviane) 0.1-20 mg-mcg tablet Discontinued 1 TABLET PO daily 84 January 20, 2020 12:00am April 26, 2020 7:40am Start: 12-07-2019 End: 01-20-2020 Levonorgestrel-Ethinyl Estra d 0.15-0.03 mg tablet Discontinued 1 {tbl} PO DAILY 84 0 December 07, 2019 10:31am January 20, 2020 9:35am Start: 12-07-2019 End: 01-20-2020 Levonorgestrel-Ethinyl Estra d 0.15-0.03 mg tablet Discontinued 1 {tbl} PO DAILY 84 December 07, 2019 10:31am January 20, 2020 9:35am Start: 12-07-2019 End: 01-20-2020 take 1 tablet by mouth once daily Levonorgestrel-Ethinyl Estrad Discontinued 1 TABLET PO DAILY 84 December 07, 2019 9:31am January 20, 2020 8:35am Start: 12-07-2019 End: 01-20-2020 take 1 tablet by mouth once daily Levonorgestrel-Ethinyl Estrad Discontinued 1 TABLET PO DAILY 84 December 07, 2019 10:31am January 20, 2020 9:35am Start: 01-14-2019 End: 12-07-2019 take 1 tablet by mouth once daily Levonorgestrel-Ethinyl Estrad Discontinued 1 TABLET PO DAILY 84 January 14, 2019 8:34am December 07, 2019 10:31am Start: 01-14-2019 End: 12-07-2019 Levonorgestrel-Ethinyl Estra d 0.15-0.03 mg tablet Discontinued 1 {tbl} PO DAILY 84 4 January 14, 2019 12:00am December 07, 2019 10:31am Start: 01-14-2019 End: 12-07-2019 Levonorgestrel-Ethinyl Estra d 0.15-0.03 mg tablet Discontinued 1 {tbl} PO DAILY 84 January 14, 2019 12:00am December 07, 2019 10:31am Start: 01-14-2019 End: 12-07-2019 take 1 tablet by mouth once daily Levonorgestrel-Ethinyl Estrad Discontinued 1 TABLET PO DAILY 84 January 13, 2019 11:00pm December 07, 2019 9:31am Start: 01-14-2019 End: 12-07-2019 take 1 tablet by mouth once daily Levonorgestrel-Ethinyl Estrad Discontinued 1 TABLET PO DAILY 84 January 14, 2019 12:00am December 07, 2019 10:31am Norethin-E.Estradiol Triphasic (20 sources) Estrogen Start: 01-05-2019 End: 01-14-2019 take 1 tablet by mouth once daily Norethin-E.Estradiol Triphasic 0.5/0.75/1 mg- 35 mcg tablet Discontinued 1 {tbl} PO DAILY 84 3 January 05, 2019 8:39am January 14, 2019 8:34am Start: 01-05-2019 End: 01-14-2019 take 1 tablet by mouth once daily Norethin-E.Estradiol Triphasic 0.5/0.75/1 mg- 35 mcg tablet Discontinued 1 {tbl} PO DAILY 84 January 05, 2019 8:39am January 14, 2019 8:34am Start: 01-05-2019 End: 01-14-2019 take 1 tablet by mouth once daily Norethin-E.Estradiol Triphasic Discontinued 1 TABLET PO DAILY 84 January 05, 2019 7:39am January 14, 2019 7:34am Start: 01-05-2019 End: 01-14-2019 take 1 tablet by mouth once daily Norethin-E.Estradiol Triphasic Discontinued 1 TABLET PO DAILY 84 January 05, 2019 8:39am January 14, 2019 8:34am Start: 02-03-2018 End: 01-05-2019 take 1 tablet by mouth once daily Norethin-E.Estradiol Triphasic 0.5/0.75/1 mg- 35 mcg tablet Discontinued 1 {tbl} PO DAILY February 03, 2018 5:32pm January 05, 2019 8:40am Start: 02-03-2018 End: 01-05-2019 take 1 tablet by mouth once daily Norethin-E.Estradiol Triphasic Discontinued 1 TABLET PO DAILY February 03, 2018 4:32pm January 05, 2019 7:40am Start: 02-03-2018 End: 01-05-2019 take 1 tablet by mouth once daily Norethin-E.Estradiol Triphasic Discontinued 1 TABLET PO DAILY February 03, 2018 5:32pm January 05, 2019 8:40am Start: 12-18-2017 End: 02-03-2018 Norethin-E.Estradiol Triphas ic 1 EACH tablet Discontinued 1 {tbl} PO DAILY 84 4 December 18, 2017 9:20am February 03, 2018 5:32pm Start: 12-18-2017 End: 02-03-2018 Norethin-E.Estradiol Triphas ic 1 EACH tablet Discontinued 1 {tbl} PO DAILY 84 December 18, 2017 9:20am February 03, 2018 5:32pm Start: 12-18-2017 End: 02-03-2018 take 1 tablet by mouth once daily Norethin-E.Estradiol Triphasic Discontinued 1 TABLET PO DAILY 84 December 18, 2017 8:20am February 03, 2018 4:32pm Start: 12-18-2017 End: 02-03-2018 take 1 tablet by mouth once daily Norethin-E.Estradiol Triphasic Discontinued 1 TABLET PO DAILY 84 December 18, 2017 9:20am February 03, 2018 5:32pm Start: 12-28-2016 End: 12-18-2017 Norethin-E.Estradiol Triphas ic Discontinued 1 EACH PO DAILY December 28, 2016 4:20pm December 18, 2017 9:21am Start: 12-28-2016 End: 12-18-2017 Norethin-E.Estradiol Triphas ic 1 EACH tablet Discontinued 1 NMA PO DAILY December 28, 2016 12:00am December 18, 2017 9:21am Start: 12-28-2016 End: 12-18-2017 Norethin-E.Estradiol Triphas ic Discontinued 1 EACH PO DAILY December 27, 2016 11:00pm December 18, 2017 8:21am Start: 12-28-2016 End: 12-18-2017 Norethin-E.Estradiol Triphas ic Discontinued 1 EACH PO DAILY December 28, 2016 12:00am December 18, 2017 9:21am Start: 11-07-2016 End: 03-26-2023 Norethindrone-Eth Estradiol (NECON , 28,) 1-35 mg-mcg per tablet Indications: Encounter for surveillance of contraceptives Take 1 pill daily of active pills up to 12 weeks for continuous cycling 4 Package 4 11/07/2016 03/26/2023 Discontinued Comment on above: Take 1 pill daily of active pills up to 12 weeks for continuous cycling ibuprofen 600 mg oral tablet (13 sources) Nonsteroidal Anti-inflammatory Drug Start : 09-18 End: 01-19 take 1 tablet by mouth every six hours as needed for pain Ibuprofen 600 MG tablet Discontinued 600 mg PO EVERY 6 HOURS NEEDED as needed for Pain Or Fever September 18, 2019 1:00am January 20, 2020 9:16am lansoprazole 15 mg delayed release oral capsule (13 sources) Proton Pump Inhibitor Start : 12-28 End: 02-03 take 1 capsule by mouth once daily Lansoprazole 15 MG capsule Discontinued 15 mg PO DAILY December 28, 2016 12:00am February 03, 2018 5:32pm levoFLOXacin 750 mg oral tablet (13 sources) Quinolone Antimicrobial Start : 12-28 End: 12-18 take 1 tablet by mouth once daily Levofloxacin 750 MG tablet Discontinued 750 mg PO DAILY 6 0 December 28, 2016 12:00am December 18, 2017 8:51am medroxyPROGESTERone acetate 10 mg oral tablet (20 sources) Progestin Start : 02-02 End: 01-31 take 1 tablet by mouth once daily Medroxyprogesterone (Provera) 10 mg tablet Discontinued 10 mg PO DAILY 10 3 February 02, 2021 12:00am January 31, 2022 8:14am Start: 11-10-2020 End: 11-20-2020 take 1 tablet by mouth once daily Medroxyprogesterone 10 mg tablet Discontinued 10 mg PO daily 10 10 0 November 10, 2020 1:00am November 19, 2020 1:00am November 20, 2020 1:03am Start: 07-31-2020 End: 08-10-2020 take 1 tablet by mouth once daily Medroxyprogesterone 10 mg tablet Discontinued 10 mg PO daily 10 10 0 July 31, 2020 12:00am August 09, 2020 1:00am August 10, 2020 1:02am MULTIVITAMIN TABLET PO (5 sources) Start: 11-05-2001 MULTIVITAMIN T ABLET PO qd 0 11/05/2001 Active Comment on above: qd Multivitamin,Tx-Iron-Min erals (7 sources) Start: 12-28-2016 End: 09-07-2020 take 1 tablet by mouth once daily Multivitamin,Tx-Iron-Mi nerals Discontinued 1 TABLET PO DAILY December 28, 2016 4:20pm September 07, 2020 3:00pm Start: 12-28-2016 End: 09-07-2020 take 1 tablet by mouth once daily Multivitamin,Af-Xadq-Cdepwxhg Discontinu ed 1 TABLET PO DAILY December 27, 2016 11:00pm September 07, 2020 2:00pm Start: 12-28-2016 End: 09-07-2020 take 1 tablet by mouth once daily Multivitamin,Jh-Byml-Fzfpzjiy Discontinu ed 1 TABLET PO DAILY December 28, 2016 12:00am September 07, 2020 3:00pm Multivitamin,Jg-Eozf-Rdgaqam s 1 TABLET tablet (6 sources) Start: 12-28-2016 End: 09-07-2020 take 1 tablet by mouth once daily Multivitamin,Qt-Ukod-Bikpnjpa 1 TABLET tablet Discontinued 1 {tbl} PO DAILY December 28, 2016 12:00am September 07, 2020 3:00pm nitrofurantoin, macrocrystal s 25 mg / nitrofurantoin, monohydrate 75 mg oral capsule (11 sources) Nitro furan Antib acter ial Start: 02-11-2023 End: 02-18-2023 take 1 capsule by mouth every twelve hours at mealtime Nitrofurantoin Monohyd/M-Cryst 100 mg capsule Discontinued 1 NMA PO Q12H 14 7 0 February 11, 2023 12:00am February 17, 2023 12:00am February 18, 2023 12:04am administer with a meal/food; swallow whole; do not open, crush, dissolve , or chew ondansetron 4 mg oral tablet (5 sources) 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 FOR NAUSEA 30 tablet 1 07/15/2017 03/26/2023 Discontinued Comment on above: Take 1 tablet by telma th every 8 hours as needed. FOR NAUSEA oseltamivir 75 mg oral capsu le (13 sources) Neura minid ase Inhib itor Start: 12-03-2019 End: 12-08-2019 take 1 capsule by mouth twice daily Oseltamivir 75 mg capsule Discontinued 75 mg PO TWICE A DAY 10 5 0 December 03, 2019 1:00am December 07, 2019 1:00am December 08, 2019 1:08am predniSONE 10 mg oral tablet (13 sources) Start: 02-03-2018 End: 12-17-2018 Prednisone 10 mg tablets,dos e pack Discontinued 0 PO per package directions February 03, 2018 12:00am December 17, 2018 11:17am PO PER PKG DIR progesterone 100 mg oral capsule (12 sources) Proge stero ne Start: 02-12-2024 End: 05-24-2025 take 1 capsule by mouth at bedtime Progesterone Micronized (Prometrium) 100 mg capsule Discontinued 100 mg PO AT BEDTIME 90 3 April 13, 2024 6:57am May 24, 2025 8:01am sertraline 100 mg oral table t (13 sources) Karl Marie aida Inhib itor Start: 01-31-2022 End: 02-06-2023 take 1 tablet by mouth once daily Sertraline (Zoloft) 100 mg tablet Discontinued 100 mg PO DAILY January 31, 2022 12:00am February 06, 2023 9:06am sucralfate 1000 mg oral tabl et (1 source) Alumi num Compl ex Start: 03-20-2023 take 1 tablet by mouth at bedtime as needed sucralfate (CARAFATE) 1 gram tablet Take one tablet by mouth before meals and at bedtime as needed 100 tablet 1 03/20/2023 Active Comment on above: Take one tablet by m outh before meals and at bedtime as needed 100 ml zoledronic acid 0.05 mg/ml injection (20 sources) Bisph ospho nadia Start: 05-28-2023 End: 05-24-2025 Zoledronic Ajtz-Csimranf-Wwr er 5 mg/100 mL piggyback Discontinued 1 NMA .Route .once a year 100 1 May 22, 2024 8:10am May 24, 2025 8:33am ONCE A YEARinfuse over 20 minutes Problems Problem Classification Problem Date Documented Date Episodic/Chronic Anxiety disorders (5 sources) Mental disorder; Translations: [Other specified nonpsychotic mental disorders] 10-02-2021 Chronic Cardiac dysrhythmias (5 sources) Palpitations; Translations: [Palpitations] 12-03-2011 Episodic Esophageal disorders (15 sources) Gastroesophageal reflux disease; Translations: [Gastro-esophageal reflux disease without esophagitis] Onset: 12-03-2011 Chronic Esophageal disorders (1 source) Esophageal disorders; Translations: [Gastroesophageal reflux disease with esophagitis without hemorrhage] Onset: 12-03-2011 Gastroduodenal ulcer (except hemorrhage) (8 sources) H/O: gastric ulcer; Translations: [Personal history of peptic ulcer disease] Onset: 02-08-2023 Episodic Genitourinary symptoms and ill-defined conditions (15 sources) Dysuria; Translations: [Dysuria] Onset: 05-26-2025 02-12-2023 Episodic Menstrual disorders (14 sources) Irregular periods; Translations: [Irregular menstruation, unspecified] Chronic Osteoarthritis (14 sources) Osteoarthritis; Translations: [Unspecified osteoarthritis, unspecified site] Chronic Osteoporosis (20 sources) Osteoporosis; Translations: [Age-related osteoporosis without current pathological fracture] Onset: 05-24-2025 02-06-2023 Chronic Comment on above: reclast reclast/per PCP reclast 2022 Other aftercare (3 sources) 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; Translations: [Long-term (current) use of other medications] Onset: 02-08-2023 Episodic Other and unspecified benign neoplasm (1 source) Gastric polyposis; Translations: [Polyp of stomach and duodenum] Episodic Other bone disease and musculoskeletal deformities (2 sources) Osteopenia; Translations: [Other specified disorders of bone density and structure, unspecified site] Episodic Other lower respiratory disease (13 sources) Pleuritic pain; Translations: [Pleurodynia] 09-19-2019 Episodic Other screening for suspected conditions (not mental disorders or infectious disease) (1 source) Encounter for screening mammogram for malignant neoplasm of breast; Translations: [Encounter for screening mammogram for malignant neoplasm of breast] Onset: 03-09-2025 Episodic Residual codes; unclassified (18 sources) Family history of malignant neoplasm of uterus; Translations: [Family history of malignant neoplasm of other genital organs] 01-20-2020 Episodic Comment on above: Mother Residual codes; unclassified (18 sources) Family history of breast cancer gene mutation in first degree relative; Translations: [Family history of carrier of genetic disease] 01-14-2019 Episodic Comment on above: Daughter age 27 at d iagnosis/PALB positive. Patient negative. Residual codes; unclassified (16 sources) Flushing; Translations: [Flushing] 02-06-2023 Episodic Comment on above: estradiol patch/prom etrium daily estradiol patch/prom etrium daily:discussed extending patch days to wean off Residual codes; unclassified (1 source) Family history of carrier of genetic disease; Translations: [Family history of genetic disease carrier] 02-06-2023 Episodic Residual codes; unclassified (1 source) Flushing; Translations: [Flushing] 02-06-2023 Episodic Urinary tract infections (1 source) Urinary tract infection, site not specified; Translations: [Urinary tract infection, site not specified] Onset: 06-01-2025 Episodic Results Test Name Value Interpretation Reference Range Facility Urine Cultureon 05-28-2025 [facility] Proteus mirabilis [place] Count 25,000-50,000 Proteus mirabilis: REACTION Ampicillin Islt ERASMO <=2 Ampicillin+Sulbac Islt ERASMO <=2 S Cefepime Islt ERASMO <=0.12 S cefTRIAXone Islt ERASMO <=0.25 S Ciprofloxacin Islt ERASMO <=0.06 S Gentamicin Islt ERASMO 4 I levoFLOXacin Islt ERASMO <=0.12 S Meropenem Islt ERASMO <=0.25 S Nitrofurantoin Islt ERASMO R Pip+Tazo Islt ERASMO <=4 S TMP SMX Islt ERASMO <=20 S Normal [facility] Comment on above: Performed By: #### M 100.0882 #### [facility] [place], [address] Urine cultureOrdered By: Katie Martinez on 05-26-2025 Bacteria identified Cx Nom (U) Proteus mirabilis Abnormal [facility] Urine Cultureon 05-25-2025 [facility] PROBABLE PROTEUS SPE CIES Below infection level. Gram negative dasia [place] Count 1000-10,000 Normal [facility] Comment on above: Performed By: #### M 100.5680 #### [facility] [address] [place], [address] Endocrinology Visit Reporton 05-24-2025 Endocrinology Visit Report [facility] 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 Required: No Accompanied by: Self Is patient in pain?: Yes Allergies clarithromycin (From Biaxin) Allergy (Verified 05/24/25 07:56) Hives Medications ???Medication ???Instructions ???Recorded ???Confirmed ???Type ascorbic acid (vitamin C) 500 mg 500 mg PO DAILY 12/28/16 05/24/25 History chewable tablet pantoprazole 40 mg granules 20 mg PO QAM 01/25/21 05/24/25 His tory delayed-release for susp in packet (Protonix) melatonin 5 mg capsule 10 mg PO QHS PRN PRN Insomnia 05/0805/24/25 History multivitamin (One Daily 1 tab PO DAILY 05/27/23 05/24/25 H istory Multivitamin tablet) cholecalciferol (vitamin D3) 125 125 mcg PO QDAY 05/24/25 05/24/25 History mcg (5,000 unit) capsule polyethylene glycol 3350 17 4 g PO QDAY PRN 05/24/25 05/24/25 History gram/dose oral powder (Miralax) zoledronic acid 5 mg/100 mL in 1 ea .Route .once a year #100 mL 0 05/24/25 05/24/25 Rx mannitol 5 %-water intravenous piggybck [facility] Medical History Post-menopausal Depression Alcohol use Back pain History of ulceration Gastric reflux Non-smoker History of stress test Osteoarthritis Fatigue Surgical History History of esophagogastroduodenoscopy (EGD) Hx of colonoscopy History of cholecystectomy History of appendectomy Stomach tumor (benign) Family History Father Diabetes Cancer prostate Multiple myeloma Daughter Breast cancer Mother Uterine cancer Social History household members: spouse Smoking Status: Never smoker alcohol intake: current alcohol intake frequency: a few times a week Alcohol type: wine details: social substance use type: does not use caffeine: Yes frequency: 1-2 times per week seatbelt use: always do you feel safe at home: Yes 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 She had T-score of -2.5 in LS spine and -2.4 in femoral neck. She received Reclast June, and 2023. She tolerated it well and would like to continue treatment course. Labs were done and are reviewed today. She has questions regarding her autoimmune testing. She has dysuria today. She stopped HRT due to fears of breast cancer. ROS Const Constitutional: Positive for weight change (Weight Gain); No fatigue, weakness or change in appetite Eyes Eyes: No change in vision ENT ENT: No hearing loss, nasal congestion or difficulty swallowing Cardio Cardiology: No chest pain at rest, chest pain with exertion or shortness of breath Musc Musculoskeletal: Positive for joint pain; No numbness Neuro Neurology: No weakness, memory loss or numbness Psych Psychiatric: No change in appetite, No memory loss and No Thoughts of harming yourself/Others Resp Respiratory: No cough, chest congestion or shortness of breath Gastro GI: No abdominal pain, constipation, diarrhea or difficulty swallowing Genitourinary-Female: Positive for burning urination, painful urination and urinary frequency Skin Skin: No itchy eyes or wounds Endo Endocrine: Positive for weight change (Weight Gain); No fatigue Aller/Imm Allergy/Immunologic: No itchy eyes Assessment and Plan Assessment and Plan (1) Osteoporosis: Status: Chronic Qualifiers: Osteoporosis type: age-related Presence of current pathological fracture: without current pathological fracture Qualified Code(s): M81.0 - Age-related osteoporosis without current pathological fracture Comment: reclast 2022 Plan: Continue Reclast for 5 year course Maintain normal calcium and vitamin D levels. Avoid falls. Exercise to maintain good balance. (2) Dysuria: Status: Resolved Plan: Check urine culture. No UA, took Azo I have spent [33] minutes today reviewing labs, records and history. Time include (more content not included)... Normal [facility] Urine cultureOrdered By: Uzair Gardner on 05-24-2025 Bacteria identified Cx Nom (U) Negative Abnormal [facility] Absolute lymphocyte countOrd ered By: Trudi Silverio on 03-03-2025 Lymphocytes Auto (Unsp spec) [#/Vol] 2.05 10*3/uL 0.83-4.51 [facility] Absolute neutrophil countOrd ered By: Trudi Silverio on 03-03-2025 Neutrophils (Bld) [#/Vol] 7.1 10*3/uL 2.0-7.7 [facility] Anion gap in Serum or Plasma Ordered By: Trudi Silverio on 03-03-2025 Anion gap [Moles/Vol] 10 mmol/L 5-15 [facility] Automated blood erythrocyte countOrdered By: Trudi Silverio on 03-03-2025 RBC (Bld) [#/Vol] 4.55 10*6/uL Normal 4.2-5.4 [facility] Comment on above: Performed By: #### L 100.0100, L506.1001, L501.5200, L500.4050 #### [facility] [address] [place], [address] Automated blood hematocrit ( percentage)Ordered By: Trudi Silverio on 03-03-2025 Hematocrit (Bld) [Volume fraction] 40.1 % Normal 37-47 [facility] Comment on above: Performed By: #### L 100.0100, L506.1001, L501.5200, L500.4050 #### [facility] [address] [place], [place], [id number] Automated lymphocyte count a s percentage of total leukocytesOrdered By: Trudi Silverio on 03-03-2025 Lymphocytes/100 WBC Auto (Unsp spec) 20.2 % 19-41 [facility] BUN/creatinine ratioOrdered By: Trudi Silverio on 03-03-2025 Urea nitrogen/Creatinine [Mass ratio] 16.8 mg/mg 10-20 [facility] Basophil percentageOrdered B y: Trudi Silverio on 03-03-2025 Basophils/100 WBC (Bld) 0.4 % Normal 0-1 [facility] Comment on above: Performed By: #### L 100.0100, L506.1001, L501.5200, L500.4050 #### [facility] [address] [place], [place], [id number] Bilirubin, totalOrdered By: Trudi Silverio on 03-03-2025 Bilirubin [Mass/Vol] 1.22 mg/dL Normal 0.00-1.30 [facility] Comment on above: Performed By: #### L 100.0100, L506.1001, L501.5200, L500.4050 #### [facility] [address] [place], [address] Breast imaging reportOrdered By: Roseline Sheehan on 03-03-2025 Study report [facility] Imaging Services [address] [place], [place] [id number] SCRN MAMM (CAD)W/ASTRID BILAT MR#: [id number] Acct: [id number] Name: NADIRA WONG Rep #: [id number] : 1970 F 54 From: Marilee Sheehan MD PCP: Dr. Trudi Silverio MD Status: RE G CLI Study:SCRN MAMM (CAD)W/ASTRID BILAT Date of Exa m: 03/03/25 Exam# [id number] Ordering Dr: Trudi Silverio MD EXAM: SCRN MAMM (CAD)W/ASTRID BILAT 03/03/2025 CLINICAL HISTORY: F, Age 54 y/o , SCREENING TECHNIQUE: Bilateral screening digital breast tomosynthesis with 2D and 3D images. Computeraided detection. COMPARISON: Prior exam(s) dated 02/19/2024, 02/06/2023. FINDINGS: TISSUE DENSITY: The breast tissue is heterogenously dense, which may obscure small masses. The mammogram demonstrates that the patient has dense breasts. Supplemental screening with whole breast ultrasound or MRI may be considered for further evaluation. Bilateral Breast Mammographic Findings: No significant masses, calcifications or other abnormalities are identified. BI/SCRN MAMM (CAD)W/ASTRID BILAT IMPRESSION: Right Breast: BIRADS 1 NEGATIVE. Left Breast: BIRADS 1 NEGATIVE. OVERALL FINAL ASSESSMENT: BIRADS 1 NEGATIVE. RECOMMENDATION: Routine annual follow-up in 1 Year A letter with findings and recommendations will be mailed to the patient. Reading Location: [facility] CC: Dr. Trudi Silverio MD ~ Pad Hand: Signed [facility] CBC W/Diff, Automatedon 05-2 Absolute Lymph 2.05 X10 3/uL Normal 0.83-4.51 [facility] Comment on above: Performed By: #### L 100.0100, L506.1001, L501.5200, L500.4050 #### [facility] [address] [place], [address] Absolute Neut 7.1 X10 3/uL Normal 2.0-7.7 [facility] Comment on above: Performed By: #### L 100.0100, L506.1001, L501.5200, L500.4050 #### [facility] [address] [place], [address] IG% 0.300 Normal 0.0-0.9 [facility] Comment on above: Result Comment: IG% - Immature Granulocytes (promyelocytes, myelocytes and metamyelocytes) > 1% indicates that a LEFT SHIFT is Present. Performed By: #### L 100.0100, L506.1001, L501.5200, L500.4050 #### [facility] [address] [place], [address] Lymphocytes/100 WBC (Bld) 20.2 % Normal 19-41 [facility] Comment on above: Performed By: #### L 100.0100, L506.1001, L501.5200, L500.4050 #### [facility] [address] [place], [address] Nucleated RBC (Bld) [#/Vol] 0 10*3/uL Normal 0-5 [facility] Comment on above: Performed By: #### L 100.0100, L506.1001, L501.5200, L500.4050 #### [facility] [address] [place], [address] RDW SD 42.5 fl Normal 35.1-43.9 [facility] Comment on above: Performed By: #### L 100.0100, L506.1001, L501.5200, L500.4050 #### [facility] [address] [place], [address] Carbon dioxide, total [Moles /volume] in Central venous bloodOrdered By: Trudi Silverio on 03-03-2025 CO2 [Moles/Vol] 26.6 mmol/L Normal 21.0-32.0 [facility] Comment on above: Performed By: #### L 100.0100, L506.1001, L501.5200, L500.4050 #### [facility] [address] [place], [address] Chloride assayOrdered By: Anusha Silverio on 03-03-2025 Chloride [Moles/Vol] 104 mmol/L Normal 98-108 [facility] Comment on above: Performed By: #### L 100.0100, L506.1001, L501.5200, L500.4050 #### [facility] [address] [place], [address] Comprehensive Metabolic Prof ilon 03-03-2025 ALK PHOS 65 U/L Normal 35-104 [facility] Comment on above: Performed By: #### L 100.0100, L506.1001, L501.5200, L500.4050 #### [facility] [address] [place], [address] BUN/CRE 16.8 RATIO Normal 10-20 [facility] Comment on above: Performed By: #### L 100.0100, L506.1001, L501.5200, L500.4050 #### [facility] [address] [place], [address] GAP 10 Normal 5-15 [facility] Comment on above: Performed By: #### L 100.0100, L506.1001, L501.5200, L500.4050 #### [facility] [address] [place], [address] Potassium [Moles/Vol] 4.4 mmol/L Normal 3.3-5.1 [facility] Comment on above: Performed By: #### L 100.0100, L506.1001, L501.5200, L500.4050 #### [facility] [address] [place], [address] T PROT 7.1 g/dL Normal 5.9-8.4 [facility] Comment on above: Performed By: #### L 100.0100, L506.1001, L501.5200, L500.4050 #### [facility] [address] [place], [address] Comprehensive Metabolic Prof ilOrdered By: Trudi Silverio on 03-03-2025 AST [Catalytic activity/Vol] 24 U/L Normal <=31 [facility] Comment on above: Performed By: #### L 100.0100, L506.1001, L501.5200, L500.4050 #### [facility] [address] [place], [address] Eosinophil percentageOrdered By: Trudi Silverio on 03-03-2025 Eosinophils/100 WBC (Bld) 3.2 % Normal 0-5 [facility] Comment on above: Performed By: #### L 100.0100, L506.1001, L501.5200, L500.4050 #### [facility] [address] [place], [address] Erythrocyte distribution wid th ratioOrdered By: Trudi Silverio on 03-03-2025 Erythrocyte distribution width (RBC) [Ratio] 13.1 % Normal 11.6-14.6 [facility] Comment on above: Performed By: #### L 100.0100, L506.1001, L501.5200, L500.4050 #### [facility] [address] [place], [address] Erythrocyte distribution wid th standard deviationOrdered By: Trudi Silverio on 03-03-2025 Erythrocyte distribution width (RBC) [Ratio] 42.5 fl 35.1-43.9 [facility] Glomerular filtration rate ( GFR) estimation/1.73 sq m using serum, plasma, or whole bOrdered By: Trudi Silverio on 03-03-2025 GFR/1.73 sq M.predicted among non-blacks MDRD (S/P/Bld) [Vol rate/Area] 104 mL/min/{1.73_m2} Normal >60 [facility] Comment on above: mL/min/1.73m2 CKD-EP I Creatinine Equation (2020) Result Comment: mL/m in/1.73m2 CKD-EPI Creatinine Equation (2020) Performed By: #### L 100.0100, L506.1001, L501.5200, L500.4050 #### [facility] [address] [place], [place], [id number] Hemoglobin measurementOrdere d By: Trudi Silverio on 03-03-2025 Hemoglobin (Bld) [Mass/Vol] 13.2 g/dL Normal 12.0-15.0 [facility] Comment on above: Performed By: #### L 100.0100, L506.1001, L501.5200, L500.4050 #### [facility] [address] [place], [address] Immature granulocytes/100 WB C Auto (Bld)Ordered By: Trudi Silverio on 03-03-2025 Immature granulocytes/100 WBC (Bld) 0.300 % 0.0-0.9 [facility] Comment on above: IG% - Immature Granu locytes (promyelocytes, myelocytes and metamyelocytes) > 1% indicates that a LEFT SHIFT is Present. MCV (mean corpuscular volume ) determinationOrdered By: Trudi Silverio on 03-03-2025 MCV (RBC) [Entitic vol] 88.1 fL Normal 81-99 [facility] Comment on above: Performed By: #### L 100.0100, L506.1001, L501.5200, L500.4050 #### [facility] [address] [place], [place], [id number] Magnesiumon 03-03-2025 Magnesium [Mass/Vol] 1.8 mg/dL Normal 1.5-2.2 [facility] Comment on above: Performed By: #### L 100.0100, L506.1001, L501.5200, L500.4050 #### [facility] [address] [place], [address] Magnesium measurement (mass/ volume)Ordered By: Trudi Silverio on 03-03-2025 Magnesium (Unsp spec) [Mass/Vol] 1.8 mg/dL 1.5-2.2 [facility] Mean corpuscular hemoglobin (MCH) determinationOrdered By: Trudi Silverio on 03-03-2025 MCH (RBC) [Entitic mass] 29.0 pg Normal 27.0-32.0 [facility] Comment on above: Performed By: #### L 100.0100, L506.1001, L501.5200, L500.4050 #### [facility] [address] [place], [place], [address] Mean corpuscular hemoglobin concentration (MCHC) determinationOrdered By: Trudi Silverio on 03-03-2025 MCHC (RBC) [Mass/Vol] 32.9 g/dL Normal 32-36 [facility] Comment on above: Performed By: #### L 100.0100, L506.1001, L501.5200, L500.4050 #### [facility] [address] [place], [address] Mean platelet volume determi nationOrdered By: Trudi Silverio on 03-03-2025 Platelet mean volume (Bld) [Entitic vol] 10.4 fL Normal 6.2-12.0 [facility] Comment on above: Performed By: #### L 100.0100, L506.1001, L501.5200, L500.4050 #### [facility] [address] [place], [address] Monocyte percentageOrdered B y: Trudi Silverio on 03-03-2025 Monocytes/100 WBC (Bld) 5.6 % Normal 0-10 [facility] Comment on above: Performed By: #### L 100.0100, L506.1001, L501.5200, L500.4050 #### [facility] [address] [place], [address] Neutrophil percentageOrdered By: Trudi Silverio on 03-03-2025 Neutrophils/100 WBC (Bld) 70.3 % High 47-70 [facility] Comment on above: Performed By: #### L 100.0100, L506.1001, L501.5200, L500.4050 #### [facility] [address] [place], [address] Nucleated red blood cell per centageOrdered By: Trudi Silverio on 03-03-2025 Nucleated RBC/100 WBC (Bld) [Ratio] 0 % 0-5 [facility] Hand Coremaker Office Visit Reporton 03-03-2025 Hand Coremaker Office Visit Report [facility], [address] [place] [address] OFFICE VISIT Date of Service: 03/03/25 MR#: [id number] Acct: [id number] Name: NADIRA WONG Rep #: [id number] : 1970 Provider: KERRY perez Age/Sex: 54/F Location: [facility] Status: Signed Intake Vital Signs 07/03/24 08:55 03/03/25 13:08 03/03/25 13:16 Height 5 ft 4 in 5 ft 4 in 5 ft 4 in Weight: 140 lb 8 oz BMI 24.1 BP 130/72 H 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 Operator Required: No Is patient in pain?: No Allergies clarithromycin (From Biaxin) Allergy (Verified 03/03/25 13:19) Hives Medications ???Medication ???Instructions ???Recorded ???Confirmed ???Type ascorbic acid (vitamin C) 500 mg 500 mg PO DAILY 12/28/16 03/03/25 History chewable tablet pantoprazole 40 mg granules 20 mg PO QAM 01/25/21 03/03/25 His tory delayed-release for susp in packet (Protonix) cholecalciferol (vitamin D3) 50 100 mcg PO DAILY 05/27/23 03/03/25 History mcg (2,000 unit) capsule melatonin 5 mg capsule 10 mg PO QHS PRN PRN Insomnia 05/0803/03/25 History multivitamin (One Daily 1 tab PO DAILY 05/27/23 03/03/25 H istory Multivitamin tablet) progesterone micronized 100 mg 100 mg PO QHS #90 caps 04/13/24 Rx capsule (Prometrium) zoledronic acid 5 mg/100 mL in 1 ea .Route .once a year #100 mL 0 05/22/24 03/03/25 Rx mannitol 5 %-water intravenous piggybck estradiol 0.05 mg/24 hr semiweekly 1 patch transdermal 2XW #24 ea 0 12/07/24 03/03/25 Rx transdermal patch (Vivelle-Dot) bupropion HCl 150 mg 24 hr tablet, 150 mg PO QAM 03/03/25 03/03/25 History extended release (Wellbutrin XL) Is last menstrual period known: No Post menopausal: Yes Patient : No : No PFSH Medical History Post-menopausal Depression Alcohol use Back pain History of ulceration Gastric reflux Non-smoker History of stress test Osteoarthritis Fatigue Surgical History History of esophagogastroduodenoscopy (EGD) Hx of colonoscopy History of cholecystectomy History of appendectomy Stomach tumor (benign) Family History Father Diabetes Cancer prostate Multiple myeloma Daughter Breast cancer Mother Uterine cancer Social History household members: spouse Smoking Status: Never smoker alcohol intake: current alcohol intake frequency: a few times a week Alcohol type: wine details: social substance use type: does not use caffeine: Yes frequency: 1-2 times per week seatbelt use: always do you feel safe at home: Yes 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 Is wanting to wean off HRT. Last PAP: 2020 History of abnormal PAP: no Last mammogram: today pending History of abnormal mammogram: no Colon cancer screenin Other preventative health care screenings: Sera Female Reproductive History Questions: metorrhagia: No, sexually active: Yes, dyspareunia: No and PCB: No Menopausal Treatment: Yes HRT ROS Const Constitutional: Denies fatigue, weight gain or weight loss Cardio Card: Denies chest pain Resp Resp: Denies cough or dyspnea on exertion GI GI: Denies abdominal pain, bloating, change in stool character, constipation or vomiting : Reports as per HPI; Denies difficulty voiding, pelvic pain, urinary frequency, urinary incontinence, urinary urgency, vaginal discharge or vaginal pruritus Exam Const General: cooperative, healthy appearing, no acute distress and well developed Orientation: alert, oriented to person and oriented to place HENND Head: normal to inspection Neck Neck: normal visual inspection Thyroid: thyroid normal Lymphatic: no lymphadenopathy noted Chest Breast inspection: normal inspection of the breasts and normal inspection of the axillae Breast palpation: normal palpation of the breasts, normal palpation of the axillae and no axillary lymphadenopathy Resp Effort Inspection: normal respiratory effort GI Palpation: soft, no masses and nontender Rectal Exam: def (more content not included)... Normal [facility] Platelet countOrdered By: Anusha Silverio on 03-03-2025 Platelets (Bld) [#/Vol] 591 10*3/uL High 150-450 [facility] Comment on above: Performed By: #### L 100.0100, L506.1001, L501.5200, L500.4050 #### [facility] [address] [place], [place], [id number] Potassium measurement (mass/ volume)Ordered By: Trudi Silverio on 03-03-2025 Potassium (Unsp spec) [Mass/Vol] 4.4 mmol/L 3.3-5.1 [facility] SCRN MAMM (CAD)W/ASTRID BILATo n 03-03-2025 SCRN MAMM (CAD)W/ASTRID BILAT [facility] Imaging Services [address] [place] [address] SCRN MAMM (CAD)W/ASTRID BILAT MR#: [id number] Acct: [id number] Name: NADIRA WONG Rep #: [id number] : 1970 F 54 From: Roseline Sheehan MD PCP: Dr. Trudi Silverio MD Status: REG CLI Study: SCRN MAMM (CAD)W/ASTRID BILAT Date of Exam: 02/05 05/31 Exam# [id number] Ordering Dr: Trudi Silevrio MD EXAM: SCRN MAMM (CAD)W/ASTRID BILAT 03/03/2025 CLINICAL HISTORY: F, Age 54 y/o , SCREENING TECHNIQUE: Bilateral screening digital breast tomosynthesis with 2D and 3D images. Computer aided detection. COMPARISON: Prior exam(s) dated 02/19/2024, 02/06/2023. FINDINGS: TISSUE DENSITY: The breast tissue is heterogenously dense, which may obscure small masses. The mammogram demonstrates that the patient has dense breasts. Supplemental screening with whole breast ultrasound or MRI may be considered for further evaluation. Bilateral Breast Mammographic Findings: No significant masses, calcifications or other abnormalities are identified. BI/SCRN MAMM (CAD)W/ASTRID BILAT IMPRESSION: Right Breast: BIRADS 1 NEGATIVE. Left Breast: BIRADS 1 NEGATIVE. OVERALL FINAL ASSESSMENT: BIRADS 1 NEGATIVE. RECOMMENDATION: Routine annual follow-up in 1 Year A letter with findings and recommendations will be mailed to the patient. Reading Location: [facility] CC: Dr. Trudi Silverio MD Pad Hand: Signed Normal [facility] Serum creatinine measurement (mass/volume)Ordered By: Trudi Silverio on 03-03-2025 Creatinine [Mass/Vol] 0.67 mg/dL Low 0.70-1.20 [facility] Comment on above: Performed By: #### L 100.0100, L506.1001, L501.5200, L500.4050 #### [facility] [address] [place], [address] Serum globulin measurementOr dered By: Trudi Silverio on 03-03-2025 Globulin (S) [Mass/Vol] 2.5 g/dL Normal 2.2-4.2 [facility] Comment on above: Performed By: #### L 100.0100, L506.1001, L501.5200, L500.4050 #### [facility] [address] [place], [address] Serum glucose measurement (m ass/volume)Ordered By: Trudi Silverio on 03-03-2025 Glucose [Mass/Vol] 83 mg/dL Normal 70-99 [facility] Comment on above: Performed By: #### L 100.0100, L506.1001, L501.5200, L500.4050 #### [facility] [address] [place], [address] Serum or plasma alanine rodríguez otransferase (ALT) measurementOrdered By: Trudi Silverio on 03-03-2025 ALT [Catalytic activity/Vol] 16 U/L Normal <=34 [facility] Comment on above: Performed By: #### L 100.0100, L506.1001, L501.5200, L500.4050 #### [facility] [address] [place], [address] Serum or plasma albumin zahraa urement (mass/volume)Ordered By: Trudi Silverio on 03-03-2025 Albumin [Mass/Vol] 4.5 g/dL Normal 3.5-5.0 [facility] Comment on above: Performed By: #### L 100.0100, L506.1001, L501.5200, L500.4050 #### [facility] [address] [place], [address] Serum or plasma albumin/glob ulin mass ratioOrdered By: Trudi Silverio on 03-03-2025 Albumin/Globulin [Mass ratio] 1.8 {ratio} Normal 0.9-2.4 [facility] Comment on above: Performed By: #### L 100.0100, L506.1001, L501.5200, L500.4050 #### [facility] [address] [place], [address] Serum or plasma alkaline rosalino sphatase measurementOrdered By: Trudi Silverio on 03-03-2025 ALP [Catalytic activity/Vol] 65 U/L 35-104 [facility] Serum or plasma calcium zahraa urement (mass/volume)Ordered By: Trudi Silverio on 03-03-2025 Calcium [Mass/Vol] 9.8 mg/dL Normal 7.6-11.0 [facility] Comment on above: Performed By: #### L 100.0100, L506.1001, L501.5200, L500.4050 #### [facility] [address] [place], [address] Serum or plasma urea nitroge n measurement (mass/volume)Ordered By: Trudi Silverio on 03-03-2025 Urea nitrogen [Mass/Vol] 11 mg/dL Normal 4-19 [facility] Comment on above: Performed By: #### L 100.0100, L506.1001, L501.5200, L500.4050 #### [facility] [address] [place], [address] Sodium levelOrdered By: Trudi Silverio on 03-03-2025 Sodium [Moles/Vol] 141 mmol/L Normal 133-145 [facility] Comment on above: Performed By: #### L 100.0100, L506.1001, L501.5200, L500.4050 #### [facility] [address] [place], [address] Total proteinOrdered By: Kaushal Silverio on 03-03-2025 Protein [Mass/Vol] 7.1 g/dL 5.9-8.4 [facility] Vitamin D,25 Hydroxyon 03-03 Vitamin D 25-OH 54.8 ng/mL Normal 30-100 [facility] Comment on above: Result Comment: Gretel min D Status Deficiency: <20 ng/mL (50nmol/L) Insufficiency: 20-30 ng/mL (50-75 nmol/L) Sufficiency: 30-100 ng/mL (75-250 nmol/L) Toxicity: >100 ng/mL (>250 nmol/L) Performed By: #### L 100.0100, L506.1001, L501.5200, L500.4050 #### [facility] [address] [place], [place], [address] White blood cell (WBC) count Ordered By: Trudi Silverio on 03-03-2025 WBC (Bld) [#/Vol] 10.1 10*3/uL Normal 4.4-11.0 [facility] Comment on above: Performed By: #### L 100.0100, L506.1001, L501.5200, L500.4050 #### [facility] [address] [place], [place], [address] Absolute lymphocyte countOrd ered By: Natan Morton on 09-06-2023 Lymphocytes Auto (Unsp spec) [#/Vol] 2.15 10*3/uL 0.83-4.51 [facility] Basophil percentageOrdered B y: Natan Morton on 09-06-2023 Basophils/100 WBC (Bld) 0.6 % 0-1 [facility] Eosinophils/100 WBC (Bld) 1.3 % 0-5 [facility] Neutrophils (Bld) [#/Vol] 5.3 10*3/uL 2.0-7.7 [facility] Neutrophils/100 WBC (Bld) 63.9 % 47-70 [facility] WBC (Bld) [#/Vol] 8.2 10*3/uL 4.4-11.0 [facility] Blood erythrocytes count (nu mber/volume)Ordered By: Natan Morton on 09-06-2023 RBC (Bld) [#/Vol] 4.95 10*6/uL 4.2-5.4 [facility] Blood hemoglobin measurement (mass/volume)Ordered By: Natan Morton on 09-06-2023 Hemoglobin (Bld) [Mass/Vol] 13.5 g/dL 12.0-15.0 [facility] Blood lymphocytes/100 leukoc ytesOrdered By: Natan Morton on 09-06-2023 Lymphocytes/100 WBC (Bld) 26.2 % 19-41 [facility] Blood monocytes/100 leukocyt esOrdered By: Natan Morton on 09-06-2023 Monocytes/100 WBC (Bld) 7.8 % 0-10 [facility] Blood platelet mean volumeOr dered By: Natan Morton on 09-06-2023 Platelet mean volume (Bld) [Entitic vol] 9.9 fL 6.2-12.0 [facility] Determination of erythrocyte mean corpuscular volume (MCV)Ordered By: Natan Morton on 09-06-2023 MCV (RBC) [Entitic vol] 86.3 fL 81-99 [facility] Erythrocyte sedimentation ra teOrdered By: Natan Morton on 09-06-2023 ESR (Bld) [Velocity] 3 mm/h 0-30 [facility] Hematocrit Auto (Bld) [Volum e fraction]Ordered By: Natan Morton on 09-06-2023 Hematocrit (Bld) [Volume fraction] 42.7 % 37-47 [facility] - Hematology and Cell countsOrdered By: Natan Morton on 09-06-2023 Erythrocyte distribution width (RBC) [Entitic vol] 41.8 fL 35.1-43.9 [facility] Erythrocyte distribution width (RBC) [Ratio] 13.3 % 11.6-14.6 [facility] Immature granulocytes/100 WBC (Bld) 0.200 % 0.0-0.9 [facility] Comment on above: IG% - Immature Granu locytes (promyelocytes, myelocytes and metamyelocytes) > 1% indicates that a LEFT SHIFT is Present. MCH (RBC) [Entitic mass] 27.3 pg 27.0-32.0 [facility] Nucleated RBC/100 WBC (Bld) [Ratio] 0 % 0-5 [facility] Auto ([facility]BC) [Mass/Vol]Or dered By: Natan Morton on 09-06-2023 MCHC (RBC) [Mass/Vol] 31.6 g/dL 32-36 [facility] No Panel InformationOrdered By: Natan Morton on 09-06-2023 Anti-Nuclear Antibody Screen Negative Negative [facility] Comment on above: Performed at: [address] [id number] Director: George Cedillo PhD, Phone: [phone] Platelets bldOrdered By: Fiorella Morton on 09-06-2023 Platelets (Bld) [#/Vol] 637 10*3/uL 150-450 [facility] Serum or plasma C reactive p rotein measurement (mass/volume)Ordered By: Natan Morton on 09-06-2023 CRP [Mass/Vol] mg/L 0.0-3.0 [facility] Comment on above: C-Reactive Protein ( CRP) provides useful information for thediagnosis, therapy and monitoring of inflammatory processesand associated diseases. For the evaluation of Relative Riskfor Cardiovascular Disease, a High Sensitivity CRP (HSCRP)should be ordered. Serum rheumatoid factor dete ctionOrdered By: Natan Morton on 09-06-2023 Rheumatoid factor Ql (S) < 10.0 IU/mL <15 [facility] CNOVon 03-20-2023 CNOV Office Visit (GENSWS ) NADIRA WONG ([id number]) 1970 F Date Time Provider Department 03/20/23 8:00 AM ALINA SCHWARZ During your visit today, we recorded the following information about you: Temperature Pulse Blood pressure 98.4 degrees 100/minute 102/74 Alina Schwarz PA-C 03/26/2023 1:57 PM Signed FOLLOW UP VISIT - ENDOSCOPY NAME: Nadira Wong [facility] NO.: [id number] DATE OF SERVICE: 03/20/2023 : 1970 REFERRING PHYSICIAN: Trudi Silverio MD Nadira is a patient I am following for GERD, history of ulcers and history of stomach tumor resection. Dr. Sesay performed upper endoscopy on 03/06/23. The patient was found to have multiple gastric polyps and irregular Z-line. Pathology demonstrated: FINAL DIAGNOSIS A. Antrum, biopsy: -Mild chronic inactive gastritis and reactive gastropathy in antrum-body transitional mucosa. -Negative for intestinal metaplasia or dysplasia. -No H. pylori on routine stain. B. Stomach, polyps, biopsy: -Multiple fundic gland polyps. C. Esophagogastric junction, biopsy: -Squamous epithelium with no diagnostic abnormality. -Separate fragment of gastric cardia/fundic-type mucosa with mild reactive changes. -Negative for intestinal metaplasia or dysplasia. The patient notes no complaints since the procedure. VITALS: Last menstrual period 06/26/2017. General: patient is alert, cooperative, pleasant and in no acute distress On examination, the abdomen is benign. Assessment IMPRESSION: gastric polyposis, likely related to long-term PPI use. GERD, gastritis PLAN: The operative findings and pathology report were reviewed with the patient, and the patient has had the opportunity to ask questions and have questions answered. If the patient notes any problems or changes in bowel function, the patient should contact me immediately. Otherwise I recommend follow up endoscopy in 3 years if PPI use is continued long-term. Reviewed dietary and lifestyle modifications for GERD and gastritis Patient verbalized understanding of all above and agreed with the plan Diagnoses: (Z79.899) Long-term current use of proton pump inhibitor therapy (primary encounter diagnosis) (K31.7) Gastric polyposis I spent a total of 24 minutes on the date of the service which included preparing to see the patient, [id number] patient care, completing clinical documentation, obtaining and/or reviewing separately obtained history, counseling and educating the patient/family/caregiver, independently interpreting results (not separately reported), and communicating results to the patient/family/caregiver. SHANEKA Saini PA-C 03/20/2023 8:33 AM Signed -Repeat EGD in 3 years for surveillance due to long-term PPI use and fundic gland polyposis -May add carafate as needed The following instructions are important for you related to your office visit today with the [facility]. INSTRUCTIONS FOR PEPTIC ULCER DISEASE - ESOPHAGITIS I discussed with you the findings of your upper endoscopy. Your upper endoscopy demonstrated gastritis and signs of GERD Esophagitis may be a form of peptic irritation, with acid moving from the stomach to the esophagus (gastroesophageal reflux) Factors that increase acid production include smoking and stress. If you smoke, stopping smoking will often cure these issues without needing other medications. Over the counter medications including antiacids and acid reducing medications including H2 blockers (Zantac and the like) and proton pump inhibitors (prilosec, prevacid and the like) neutralize or prevent acid production. Prescription strength proton pump inhibitors (PPIs) may be necessary if your symptoms persist. Carafate may be added to PPI treatment in refractory cases. Avoiding smoking, alcohol and antiinflammatory medications are important in the successful treatment of reflux esophagitis and peptic diseases. Other factors that contribute to GERD and esophagitis are being overweight, eating large meals before laying down and certain foods. Weight loss will help improve many GERD complaints. Remaining upright after eating large meals and having a small supper will also help symptoms. Avoiding food that contribute to reflux - chocolate, caffeine, cheddar cheese may also help. Follow up upper endoscopy may be recommended to assure healing of the esophagus. New or worsening symptoms such are epigastric pain, burning, difficulty swallowing or food sticking should be relayed to your physician. Feeling full early after eating, or black, tarry, foul smelling stools are also worrisome. If you have any difficulties or concerns, you should contact our office immediately. If you note any additional difficulties, questions, or concerns, you should contact our office imme (more content not included)... Normal [facility] 03-08-2023 MARIAELENAN Telephone ([employer]) NADIRA WONG ([id number]) 1970 F Date Time Provider Department 03/08/23 RAMANDEEP SESAY During your visit today, we recorded the following information about you: Taisha Cantrell LPN 03/08/2023 3:59 PM Signed Patient call in with concerns of having a sore throat and some difficulty swallowing, feels like I have something in my throat when I swallow. Informed patient that just had a EGD done on 01/04/23 and may have some tenderness d/t a scope going down the esophagus. Advised patient if symptoms worsen, throat swelling and difficulty breathing to go to Emergency room. Also recommended eating some cold food / drink to sooth her throat. Asked patient to call office back on Saturday to let us know how doing. Patient voiced understanding. WAYNE Fowler LPN 03/11/2023 11:05 AM Addendum Patient called in stating she had EGD on Saturday03/06/2023 and is still having difficulty swallowing. Patient states she also is having difficulty sleeping due to having sore throat. Patient states she is not having any difficulty breathing. Please advise. WAYNE Cash RN 03/11/2023 3:04 PM Signed Left message for [facility]. If the Pt continues to have issues after using the oragel, she can call and have her follow up appointment on 03/20 with Alina Schwarz moved to a sooner appointment. Ramandeep Sesay MD [facility] General Surgery Pool 3 hours ago (11:51 AM) She can trial rinse and gargle with Orajel antiseptic mouth sore rinse. If no improvement after a week, patient should follow up with Alina Schwarz PA-C Thank you Brooklynn Schaeffer RN Allergies As of Date: 03/08/2023 Noted Allergy Reaction BIAXIN (CLARITHROMYCIN) 08/25/2007 4 - Hives Comments: HAS DONE WELL WITH Z-PACK Date Reviewed: 03/06/2023 Reviewed by: Maxine Leon RN - Fully Assessed Reason for Visit: Patient Question [9239] Cmt: Sore throat Prescriptions as of 03/11/2023 - buPROPion SR (ZYBAN SR; WELLBUTRIN SR) 150 mg 12 hr tablet Take 150 mg by mouth once daily. - cholecalciferol (VITAMIN D3) 5,000 unit tab Take 4,000 Units by mouth once daily. - pantoprazole DR (PROTONIX) 40 mg tablet Take 1 tablet by mouth twice daily. - ondansetron (ZOFRAN, HYDROCHLORIDE,) 4 mg tablet Take 1 tablet by mouth every 8 hours as needed. FOR NAUSEA - acetaminophen (TYLENOL) 650 mg/20.3 mL soln Take 20.3 mL by mouth every 6 hours as needed (headache). - melatonin 10 mg tab Take 1 tablet by mouth at bedtime as needed. - Norethindrone-Eth Estradiol (NECON , ,) 1-35 mg-mcg per tablet Take 1 pill daily of active pills up to 12 weeks for continuous cycling - Calcium-Cholecalciferol, D3, 600-125 mg-unit tab Take 1 tablet by mouth twice daily. 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 [K22.4] Abdominal pain, chronic, epigastric [R10.13, G8* 11/02/2015 Constipation [K59.00] 07/18/2016 07/18/2016 Flatulence [R14.3] 07/18/2016 07/18/2016 Post procedure discomfort [G89.18] 07/09/2017 07/10/2017 History of gastric ulcer [Z87.11] 03/06/2023 Encounter Status:Closed by TAISHA CANTRELL on 03/08/23 Normal [facility] SURGICAL PATHOLOGYon 023 Case Report Surgical Pathology R eport Case: [id number] Authorizing Provider: Ramandeep Sesay MD Collected: 03/06/2023 10:19 AM Ordering Location: Ambulatory Surgery Received: 03/06/2023 02:09 PM Pathologist: Nino Matthews MD, PhD Specimens: A) - ANTRUM (STOMACH) BIOPSY, Antral bx for H/H B) - STOMACH (GASTRIC) POLYP BIOPSY, Multiple gastric polyps C) - ESOPHAGOGASTRIC JUNCTION BIOPSY [facility] FINAL DIAGNOSIS A. Antrum, biopsy: -Mild chronic inactive gastritis and reactive gastropathy in antrum-body transitional mucosa. -Negative for intestinal metaplasia or dysplasia. -No H. pylori on routine stain. B. Stomach, polyps, biopsy: -Multiple fundic gland polyps. C. Esophagogastric junction, biopsy: -Squamous epithelium with no diagnostic abnormality. -Separate fragment of gastric cardia/fundic-type mucosa with mild reactive changes. -Negative for intestinal metaplasia or dysplasia. [facility] Gross Description A. ANTRUM (STOMACH) BIOPSY Received in formalin is one piece of contreras, soft tissue measuring 0.4 x 0.2 x 0.2 cm. Totally submitted in one cassette. B. STOMACH (GASTRIC) POLYP BIOPSY Received in formalin are three contreras-pink to brown polypoid segments of tissue ranging in size from 0.8 x 0.6 x 0.7 cm to 0.5 x 0.3 x 0.2 cm. No stalks are present. The lines of resection are noted. The largest specimen is bisected and the smaller specimens are not sectioned. Totally submitted in cassette B1. Also received in the same container are multiple pieces of contreras, soft tissue aggregating to 1.5 x 0.2 x 0.2 cm. Totally submitted in cassette B2. C. ESOPHAGOGASTRIC JUNCTION BIOPSY Received in formalin are two pieces of contreras-white to pink, soft tissue aggregating to 0.6 x 0.3 x 0.2 cm. Totally submitted in one cassette. Gross examination performed at [facility], [facility] [place] [address] JT 03/06/2023 10:58 PM [facility] Performing Lab Diagnostic interpret ation performed at [facility], [facility] [address] CLIA# [id number] P[employer] And Installation Technician: Masoud Nolan M.D. [facility] EGD DIAGNOSTICon 03-06-2023 [facility] HISTORY PHYSICALon 3 HISTORY PHYSICAL HNO ID: [id number] Author: Ramandeep Sesay MD Service: General Surgery Author Type: Physician Type: HANDP Filed: 03/06/2023 9:21 AM Note Text: HISTORY AND PHYSICAL Nadira Wong 1970 REFERRING PHYSICIAN: Trudi Silverio, * CHIEF COMPLAINT: Consult (EGD - GERD) HPI: The patient is a 52 year old female referred for endoscopy. Nadira notes long-term issues with GERD for which she is maintained on a PPI, still with some occasional breakthrough symptoms. 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 Path results showed granuloma and fibrosis, no dysplasia or malignancy. Patient denies any acute change in bowel habits, weight changes, blood in stools, black tarry stools or abdominal pain. Denies family history of colon issues. Up to date on screening colonoscopy-last was in 2015. Patient denies chest pain, shortness of breath or recent hospitalizations. Denies problems with sedation in the past. 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 EGD 12/2011 Dyskinesia of esophagus Dysmenorrhea Esophageal reflux 2001 Neurasthenia hands Palpitations 2006 PAST SURGICAL HISTORY PAST SURGICAL HISTORY Procedure Laterality Date APPENDECTOMY 02/2001 BX BREAST PERC VACUUM/ROTN 08/19/2009 Right, fibrocystric changes, IDH without atypia CHOLECYSTECTOMY 2002 COLONOSCOPY FLX DX W/COLLJ SPEC WHEN PFRMD 05/23/2001 Colonoscopy COLONOSCOPY FLX DX W/COLLJ SPEC WHEN PFRMD 07/18/2016 Colonoscopy (MAC) EGD ABLATION GEN ANES 07/09/2017 EGD TRANSORAL BIOPSY SINGLE/MULTIPLE 12/20/2011 benign fundic gland polyp ESOPHAGOGASTRODUODENOSCOPY TRANSORAL DIAGNOSTIC 10/2001 EGD ESOPHAGOGASTRODUODENOSCOPY TRANSORAL DIAGNOSTIC 07/08/2007 EGD ESOPHAGOGASTRODUODENOSCOPY TRANSORAL DIAGNOSTIC 07/18/2016 EGD (MAC) PAST SURGICAL HISTORY OF fx of right middle finger PAST SURGICAL HISTORY OF 10/26/2011 Essure procedure REPAIR OF FOOT BONES Left CURRENT MEDICATIONS Current Outpatient Medications Medication Sig buPROPion SR (WELLBUTRIN SR) 150 mg 12 hr tablet Take 150 mg by mouth once daily. cholecalciferol (VITAMIN D-3) 5,000 unit tab Take 4,000 Units by mouth once daily. pantoprazole DR (PROTONIX) 40 mg tablet Take 1 tablet by mouth twice daily. melatonin 10 mg tab Take 1 tablet by mouth at bedtime as needed. ascorbic acid(CHEWABLE VITAMIN C 250 MG TAB) Take one tab(s) daily MULTIVITAMIN TABLET PO qd ondansetron (ZOFRAN, HYDROCHLORIDE,) 4 mg tablet Take 1 tablet by mouth every 8 hours as needed. FOR NAUSEA (Patient not taking: Reported on 02/08/2023) acetaminophen (TYLENOL) 650 mg/20.3 mL soln Take 20.3 mL by mouth every 6 hours as needed (headache). (Patient not taking: Reported on 02/08/2023) Norethindrone-Eth Estradiol (NECON , 28,) 1-35 mg-mcg per tablet Take 1 pill daily of active pills up to 12 weeks for continuous cycling (Patient not taking: Reported on 02/08/2023) Calcium-Cholecalciferol, D3, 600-125 mg-unit tab Take 1 tablet by mouth twice daily. (Patient not taking: Reported on 02/08/2023) No current facility-administered medications for this visit. ALLERGIES: Biaxin [Clarithromycin] PERSONAL HISTORY: SOCIAL HISTORY Social History Tobacco Use Smoking status: Never Smokeless tobacco: Never Vaping Use Vaping Use: Never used Substance Use Topics Alcohol use: Yes Alcohol/week: 5.0 standard drinks Types: 2 Glasses of Wine (5oz) per week Comment: occ Drug use: No FAMILY HISTORY: FAMILY HISTORY FAMILY HISTORY Problem Relation Age of Onset Lipids Mother Hypertension Father Prostate Cancer Father Diabetes Father other (gangrene) Father aputate bilat legs other (hodgkins lymphoma) Maternal Grandmother Cancer Maternal Grandfather basal cell cancers (skin) Colon Cancer Other none Diabetes Other none Coronary Artery Disease Other none REVIEW OF SYMPTOMS: The review of systems data was entered by the nurse and reviewed by wi Nursing Notes: Vijaya Prabhakar LPN 02/08/2023 9:12 AM Signed REVIEW OF SYSTEMS: General: The patient denies fatigue, denies weight loss, denies weight gain, NOTES feeling hot, and denies feelings of cold. Eyes: The patient denies glaucoma, denies eye injury/surgery, wears glasses or contacts. Ear/Nose/Throat: The patient denies allergies, denies hayfever, denies ear infections, and denies bloody noses. Cardiovascular: The patient denies chest pain, denies heart disease, denies high blood pressure,denies cardiac stent, denies prior heart attack, denies irregular heart beat, denies high cholesterol, denies poor circulation, denies heart failure, other cardiac issues, denies claudication, denies cold feet, denies peripheral arterial s (more content not included)... Normal [facility] NURSING PROGon 03-06-2023 NURSING PROG HNO ID: [id number] Author: Maxine Leon RN Service: ? Author Type: Registered Nurse Type: Nursing Progress Note Filed: 03/06/2023 11:31 AM Note Text: Arrived in phase II via cart. Left lateral position. Sedated, but responds to verbal stimuli. Color normal; skin warm and dry. Respirations wnl and unlabored. Abdomen soft and with + bowel sounds in quads X 4. Patient resting comfortably. Family at bedside. Maxine Leon RN Normal [facility] SURGICAL PATHOLOGYon 023 CASE REPORT Normal [facility] Comment on above: Order Comment: Speci sonia Type: TISSUE SPECIMEN Ordering Facility: [facility] Address: [address] [place], [place] [id number] Result Comment: Surg [facility] Pathology Report Case: [id number] Authorizing Provider: Ramandeep Sesay MD Collected: 03/06/2023 10:19 AM Ordering Location: Ambulatory Surgery Received: 03/06/2023 02:09 PM Pathologist: Nino Matthews MD, PhD Specimens: A) - ANTRUM (STOMACH) BIOPSY, Antral bx for H/H B) - STOMACH (GASTRIC) POLYP BIOPSY, Multiple gastric polyps C) - ESOPHAGOGASTRIC JUNCTION BIOPSY Performed By: #### S #### [facility] CLIA [id number] [address] [place] [address] [place] [address] [place] FINAL DIAGNOSIS Normal [facility] Comment on above: Order Comment: Speci men Type: TISSUE SPECIMEN Ordering Facility: [facility] Address: [address] [place] [address] Result Comment: A. A ntrum, biopsy: -Mild chronic inactive gastritis and reactive gastropathy in antrum-body transitional mucosa. -Negative for intestinal metaplasia or dysplasia. -No H. pylori on routine stain. B. Stomach, polyps, biopsy: -Multiple fundic gland polyps. C. Esophagogastric junction, biopsy: -Squamous epithelium with no diagnostic abnormality. -Separate fragment of gastric cardia/fundic-type mucosa with mild reactive changes. -Negative for intestinal metaplasia or dysplasia. Performed By: #### S #### [facility] CLIA [id number] [address] [place] [address] OF [facility] FINAL PERFORMING LAB Normal [facility] Comment on above: Order Comment: Speci men Type: TISSUE SPECIMEN Ordering Facility: [facility] Address: [address] [place] [address] Result Comment: Diag nostic interpretation performed at [facility], [address] [place] [address] CLIA# [id number] Pv Design And Installation Technician: Masoud Nolan M.D. Performed By: #### S #### [facility] CLIA [id number] [address] [place] [address] GROSS DESCRIPTION Normal [facility] Comment on above: Order Comment: Speci men Type: TISSUE SPECIMEN Ordering Facility: [facility] Address: [address] [place] [address] Result Comment: A. A NTRUM (STOMACH) BIOPSY Received in formalin is one piece of contreras, soft tissue measuring 0.4 x 0.2 x 0.2 cm. Totally submitted in one cassette. B. STOMACH (GASTRIC) POLYP BIOPSY Received in formalin are three contreras-pink to brown polypoid segments of tissue ranging in size from 0.8 x 0.6 x 0.7 cm to 0.5 x 0.3 x 0.2 cm. No stalks are present. The lines of resection are noted. The largest specimen is bisected and the smaller specimens are not sectioned. Totally submitted in cassette B1. Also received in the same container are multiple pieces of contreras, soft tissue aggregating to 1.5 x 0.2 x 0.2 cm. Totally submitted in cassette B2. C. ESOPHAGOGASTRIC JUNCTION BIOPSY Received in formalin are two pieces of contreras-white to pink, soft tissue aggregating to 0.6 x 0.3 x 0.2 cm. Totally submitted in one cassette. Gross examination performed at [facility], [address] [place] [address] 03/06/2023 10:58 PM Performed By: #### S #### [facility] CLIA [id number] [address] [place], [place] [address]K [address] OF [facility] Upper GI endoscopyon 023 Upper GI endoscopy [facility] Gastrointestinal Endoscopy Patient Name: Nadira Wong Procedure Date: 03/06/2023 10:01 AM Date of : 1970 Admit Type: Outpatient Age: 52 Gender: Female Note Status: Finalized Procedure: Upper GI endoscopy Indications: Esophageal reflux Providers: Ramandeep Sesay MD Patient Profile: Refer to note in patient chart for documentation of history and physical. Referring Physician: Alina Schwarz (pa) (Referring ), Trudi Silverio (Referring ) Medicines: Midazolam 9 mg IV, Fentanyl 100 micrograms IV, Diphenhydramine 50 mg IV Complications: No immediate complications. Requesting Provider: Procedure: Pre-Anesthesia Assessment: - Prior to the procedure, a History and Physical was performed, and patient medications and allergies were reviewed. The patient is competent. The risks and benefits of the procedure and the sedation options and risks were discussed with the patient. All questions were answered and informed consent was obtained. Patient identification and proposed procedure were verified by the physician in the pre-procedure area. Mental Status Examination: alert and oriented. Airway Examination: normal oropharyngeal airway and neck mobility. Respiratory Examination: clear to auscultation. CV Examination: normal. Prophylactic Antibiotics: The patient does not require prophylactic antibiotics. Prior Anticoagulants: The patient has taken no anticoagulant or antiplatelet agents. ASA Grade Assessment: II - A patient with mild systemic disease. After reviewing the risks and benefits, the patient was deemed in satisfactory condition to undergo the procedure. The anesthesia plan was to use moderate sedation / analgesia (conscious sedation). Immediately prior to administration of medications, the patient was re-assessed for adequacy to receive sedatives. The heart rate, respiratory rate, oxygen saturations, blood pressure, adequacy of pulmonary ventilation, and response to care were monitored throughout the procedure. The physical status of the patient was re-assessed after the procedure. After obtaining informed consent, the endoscope was passed under direct vision. Throughout the procedure, the patient's blood pressure, pulse, and oxygen saturations were monitored continuously. The Endosonoscope was introduced through the mouth, and advanced to the second part of duodenum. The upper GI endoscopy was accomplished without difficulty. The patient tolerated the procedure well. Moderate Sedation: The administration of moderate sedation was initiated at 10:11 AM. Moderate (conscious) sedation was personally administered by the endoscopist. The following parameters were monitored: oxygen saturation, heart rate, blood pressure, respiratory rate, EKG, adequacy of pulmonary ventilation, and response to care. Total physician intraservice time was 21 minutes. Findings: The first portion of the duodenum and second portion of the duodenum were normal. Multiple 10 to 15 mm semi-pedunculated polyps with no bleeding and no stigmata of recent bleeding were found in the entire examined stomach. The polyps was removed with a hot snare. Resection and retrieval were complete. Verification of patient identification for the specimen was done by the nurse. Estimated blood loss was minimal. The Z-line was irregular. Biopsies were taken with a cold forceps for histology. Verification of patient identification for the specimen was done by the nurse. Estimated blood loss was minimal. Impression: - Normal first portion of the duodenum and second portion of the duodenum. - Multiple gastric polyps. Resected and retrieved. - Z-line irregular. Biopsied. Recommendation: - Discharge patient to home (ambulatory). - Resume previous diet. - Continue present medications. - Await pathology results. - Follow up with Alina Schwarz PA-C via televisit for discussion of pathology results and determination of timing of future endoscopies MAC anesthesia in the future Procedure Code(s): --- Professional --- 87063, Esophagogastroduodenoscopy, flexible, transoral; with removal of tumor(s), polyp(s), or other lesion(s) by snare technique 16275, 59, Moderate sedation services provided by the same physician or other qualified health healthcare recruiter performing the diagnostic or therapeutic service that the sedation supports, requiring the presence of an independent trained observer to assist in the monitoring of the patient's level of consciousness and physiological status; initial 15 minutes of intraservice time, patient age 5 years or older Diagnosis Code(s): --- Professional --- K21.9, Gastro-esophageal reflux disease without esophagitis K22.89, Other specified disease of esophagus K31.7, Polyp of stomach and duodenum CPT copyright 2020 [employer]. All rights reserved. The codes documented in this re (more content not included)... Normal [facility] CNOVon 02-08-2023 CNOV Office Visit (GENSWS ) NADIRA WONG ([id number]) 1970 F Date Time Provider Department 02/08/23 9:00 AM ALINA SCHWARZS During your visit today, we recorded the following information about you: Temperature Pulse Blood pressure Weight 98.5 degrees 107/minute 106/80 62.1 kg Height 1.626 m Vijaya Prabhakar LPN 02/08/2023 9:12 AM Signed REVIEW OF SYSTEMS: General: The patient denies fatigue, denies weight loss, denies weight gain, NOTES feeling hot, and denies feelings of cold. Eyes: The patient denies glaucoma, denies eye injury/surgery, wears glasses or contacts. Ear/Nose/Throat: The patient denies allergies, denies hayfever, denies ear infections, and denies bloody noses. Cardiovascular: The patient denies chest pain, denies heart disease, denies high blood pressure,denies cardiac stent, denies prior heart attack, denies irregular heart beat, denies high cholesterol, denies poor circulation, denies heart failure, other cardiac issues, denies claudication, denies cold feet, denies peripheral arterial stent. Respiratory: The patient denies tuberculosis, denies pneumonia, denies frequent cough, denies pulmonary embolism, denies shortness of breath, and denies coughing up blood. Gastrointestinal: The patient denies difficulty swallowing, NOTES acid reflux, NOTES ulcers, denies vomiting, denies jaundice/hepatitis, denies gallbladder problems, denies black or tarry stools, NOTES hemorrhoids, denies bleeding from rectum, denies diverticulitis, NOTES constipation, denies diarrhea, denies loss of stool control, and denies hernias. Kidney/Bladder: The patient denies kidney stones, denies urine infections, and denies bloody urine. Skin: The patient denies a history of skin cancer, denies bleeding/changing moles, and denies a history of skin rash. Neurologic: The patient denies a history of epilepsy/convulsions, denies headaches, denies head/spinal injuries, and denies stroke/TIA. Psychiatric: The patient denies psychiatric medications, NOTES depression, and denies voices, denies substance abuse. Endocrine: The patient denies thyroid disorders, denies diabetes, and denies hormonal problems. Hematologic: The patient denies a history of bruising, denies bleeding, and denies anemia, denies blood clots. Infections: The patient denies a history of measles and mumps, denies rheumatic fever, and denies sexually transmitted diseases. Musculoskeletal: The patient denies back pain/injury, denies back problems, denies sciatica, denies knee/foot trouble, NOTES arthritis, or denies gout. When was patient's last Mammogram screening? 02/2020 Last Colonoscopy: 07/2016 WAYNE Serrano PA-C 02/08/2023 12:39 PM Signed HISTORY AND PHYSICAL Nadira Wong 1970 REFERRING PHYSICIAN: Trudi Silverio, * CHIEF COMPLAINT: Consult (EGD - GERD) HPI: The patient is a 52 year old female referred for endoscopy. Nadira notes long-term issues with GERD for which she is maintained on a PPI, still with some occasional breakthrough symptoms. 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 Path results showed granuloma and fibrosis, no dysplasia or malignancy. Patient denies any acute change in bowel habits, weight changes, blood in stools, black tarry stools or abdominal pain. Denies family history of colon issues. Up to date on screening colonoscopy-last was in 2015. Patient denies chest pain, shortness of breath or recent hospitalizations. Denies problems with sedation in the past. 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 EGD 12/2011 Dyskinesia of esophagus Dysmenorrhea Esophageal reflux 2001 Neurasthenia hands Palpitations 2006 PAST SURGICAL HISTORY Procedure Laterality Date APPENDECTOMY 02/2001 BX BREAST PERC VACUUM/ROTN 08/19/2009 Right, fibrocystric changes, IDH without atypia CHOLECYSTECTOMY 2001 COLONOSCOPY FLX DX W/COLLJ SPEC WHEN PFRMD 05/23/2001 Colonoscopy COLONOSCOPY FLX DX W/COLLJ SPEC WHEN PFRMD 07/18/2016 Colonoscopy (MAC) EGD ABLATION GEN ANES 07/09/2017 EGD TRANSORAL BIOPSY SINGLE/MULTIPLE 12/20/2011 benign fundic gland polyp ESOPHAGOGASTRODUODENOSCOPY TRANSORAL DIAGNOSTIC 10/2001 EGD ESOPHAGOGASTRODUODENOSCOPY TRANSORAL DIAGNOSTIC 07/08/2007 EGD ESOPHAGOGASTRODUODENOSCOPY TRANSORAL DIAGNOSTIC 07/18/2016 EGD (MAC) PAST SURGICAL HISTORY OF fx of right middle finger PAST SURGICAL HISTORY OF 10/26/2011 Essure procedure REPAIR OF FOOT BONES Left Current Outpatient Medications Medication Sig buPROPion SR (WELLBUTRIN SR) 150 mg 12 hr tablet Take 150 mg by mouth once daily. cholecalciferol (VITAMIN D-3) (more content not included)... Normal [facility] - Chemistry and C hemistry - challengeOrdered By: Brenda Triana on 02-06-2023 Free T4 [Mass/Vol] 0.68 ng/dL 0.76-1.46 [facility] No Panel InformationOrdered By: Brenda Triana on 02-06-2023 Thyroglobulin Antibody < 1.0 IU/mL 0.0-0.9 [facility] Comment on above: Thyroglobulin Antibo dy measured by Chantell CoulterMethodologyPerformed at: CB - [facility] [id number] [place], [place] [id number] Director: George Cedillo PhD, Phone: [phone] Thyroid Stimulating Hormone (TSH) 1.81 uIU/mL 0.358-3.74 [facility] Vitamin D 25-Hydroxy 53.0 ng/mL [facility] Comment on above: Vitamin D 25(OH) Sta tus Range Deficiency <20 ng/mL (50nmol/L) Insufficiency 20 - 30 ng/mL (50 - 75 nmol/L) Sufficiency 30 - 100 ng/mL (75 - 250 nmol/L) Toxicity >100 ng/mL (>250 nmol/L) Serum or plasma thyroperoxid ase antibody assay (units/volume)Ordered By: Brenda Triana on 02-06-2023 TPO Ab Qn 16 [IU]/mL 0-34 [facility] Basophil percentageon 2021 Bilirubin [Mass/Vol] 0.70 mg/dL 0.20-1.00 [facility] Work Phone: [phone] Comment on above: For patients on eltr ombopag therapy, use of Dimension [place] TBIL is not recommended. Chloride [Moles/Vol] 104 mmol/L 98-107 [facility] Work Phone: Glucose [Mass/Vol] 78 mg/dL 74-106 [facility] Work Phone: Potassium [Moles/Vol] 5.1 mmol/L 3.5-5.1 [facility] Work Phone: Protein [Mass/Vol] 7.5 g/dL 6.4-8.2 [facility] Work Phone: Sodium [Moles/Vol] 141 mmol/L 136-145 [facility] Work Phone: [phone] Laboratory - Chemistry and C hemistry - challengeon 06-20-2022 ALP [Catalytic activity/Vol] 109 U/L 45-117 [facility] Work Phone: ALT [Catalytic activity/Vol] 20 U/L 13-56 [facility] Work Phone: CO2 [Moles/Vol] 31.0 mmol/L 21.0-32.0 [facility] Work Phone: [phone] Globulin (S) [Mass/Vol] 3.2 g/dL 2.2-4.2 [facility] Work Phone: Urea nitrogen/Creatinine [Mass ratio] 25.2 mg/mg 10-20 [facility] Work Phone: No Panel Informationon 06-20 Estimated GFR (MDRD) Amer 136 mL/min >60 [facility] Work Phone: Comment on above: GFR Calc Estimated GFR (MDRD) Non-Af Amer 113 mL/min >60 [facility] Work Phone: Comment on above: Non- GFR Calc Vitamin D 25-Hydroxy 31.0 ng/mL [facility] Work Phone: Comment on above: Vitamin D 25(OH) Sta tus Range Deficiency <20 ng/mL (50nmol/L) Insufficiency 20 - 30 ng/mL (50 - 75 nmol/L) Sufficiency 30 - 100 ng/mL (75 - 250 nmol/L) Toxicity >100 ng/mL (>250 nmol/L) Serum or plasma albumin zahraa urement (mass/volume)on 06-20-2022 Albumin [Mass/Vol] 4.3 g/dL 3.2-5.0 [facility] Work Phone: Serum or plasma albumin/glob ulin mass ratioon 06-20-2022 Albumin/Globulin [Mass ratio] 1.3 {ratio} 0.9-2.4 [facility] Work Phone: Serum or plasma calcium zahraa urement (mass/volume)on 06-20-2022 Calcium [Mass/Vol] 10.0 mg/dL 8.5-10.1 [facility] Work Phone: Serum or plasma creatinine m easurement (mass/volume)on 06-20-2022 Creatinine [Mass/Vol] 0.60 mg/dL 0.55-1.02 [facility] Work Phone: Comment on above: The validity of the calculated GFR & GFRAA in patients over 70 years has not been determined. Clinical correlation is essential. Serum or plasma urea nitroge n measurement (mass/volume)on 06-20-2022 Urea nitrogen [Mass/Vol] 15 mg/dL 7-18 [facility] Work Phone: Thin prep Papanicolaou smear with manual screeningon 06-20-2022 Thin prep Papanicolaou smear with manual screening 15 U/L 15-37 [facility] Work Phone: Thin prep Papanicolaou smear with manual screening 6 5-15 [facility] Work Phone: No Panel Informationon 01-31 Follicle Stimulating Hormone 79.4 mIU/mL [facility] Work Phone: Comment on above: NORMAL REFERENCE RAN GES FEMALE FOLLICULAR 2.3 - 12.6 mIU/mL MID-CYCLE PEAK 5.2 - 17.5 mIU/mL LUTEAL 1.7 - 12.9 mIU/mL POST-MENOPAUSAL ON MHT 5.9 - 72.8 mIU/mL NOT ON MHT 12.7 - 132.2 mlU/mL MALE 0.7 - 10.8 mIU/mL Serum or plasma estradiol (E 2) measurement (mass/volume)on 01-31-2022 E2 [Mass/Vol] 11.8 pg/mL [facility] Work Phone: Comment on above: NORMAL REFERENCE RAN GES FEMALE FOLLICULAR 21.4 - 164.8 pg/mL MID-CYCLE PEAK 49.9 - 367.2 pg/mL LUTEAL 40.2 - 259.0 pg/mL POST-MENOPAUSAL ON MHT <11.0 - 462.1 pg/mL NOT ON MHT <11.0 - 58.3 pg/mL MALE <11.0 - 52.5 pg/mL NOTE:[employer] HAS CONFIRMED THE DRUG FULVETRANT (FASLODEX) MAY CAUSE FALSELY ELEVATED ESTRADIOL RESULTS WHEN USING THIS TEST METHOD. IF PATIENT IS TAKING FULVESTRANT AN ALTERNATIVE METHOD SHOULD BE USED TO DETERMINE ESTRADIOL CONCENTRATION. Laboratory - Microbiology an d Antimicrobial susceptibilityon 10-25-2021 SARS-CoV-2 (COVID-19) RNA AUBREY+probe Ql (Unsp spec) Not detected Not Detect [facility] Work Phone: Comment on above: Normal Reference Ran ge: Not DetectedMethod:(RT-PCR) real-time reverse transcriptase PCRLuminex DERIAN Instrument*The Food and Drug Administration (FDA) has issued an Emergency Use Authorization (EAU) for the DERIAN SARS-CoV-2 Assay for the rapid detection of the virus that causes COVID-19. This test has been validated, but the FDAs independent review of this validation is pending.*Negative results do not preclude infection and should not be used as the sole basis for treatment or patient management. Optimum specimen types and timing for peak viral levels during infections caused by SARS-CoV-2 have not been determined. Collection of multiple specimens from the same patient may be necessary to detect the virus. The possibility of a false negative result should be considered if the patient has clinical presentation or has had recent exposure. Vital Signs Date Time Vital Sign Value Performing Clinician Facility 05-24-2025 07:56-0400 Body mass index (BMI) [Ratio] 25.7 kg/m2 Dr. Trudi Silverio MD Work Phone: [facility] 05-24-2025 07:56-0400 Body weight 68.[address] Trudi Silverio MD Work Phone: [facility] 05-24-2025 07:56-0400 Diastolic blood pressure 87 mm[Hg] Dr. Trudi Silverio MD Work Phone: [facility] 05-24-2025 07:56-0400 Heart rate 74 /min Dr. Trudi Silverio MD Work Phone: [facility] 05-24-2025 07:56-0400 SaO2% (BldA) [Mass fraction] 98 % Dr. Trudi Silverio MD Work Phone: [facility] 05-24-2025 07:56-0400 Systolic blood pressure 135 mm[Hg] Dr. Trudi Silverio MD Work Phone: [facility] 03-03-2025 13:16-0400 Body height 162.[address] Trudi Silverio MD Work Phone: [facility] 03-03-2025 13:08-0400 Body mass index (BMI) [Ratio] 24.1 kg/m2 Dr. Trudi Silverio MD Work Phone: [facility] 03-03-2025 13:08-0400 Body weight 63.[address] Trudi Silverio MD Work Phone: [phone])[phone] [place] [address] 03-03-2025 13:08-0400 Diastolic blood pressure 72 mm[Hg] Dr. Trudi Silverio MD Work Phone: 3(137)912-513916 [place] [address] 03-03-2025 13:08-0400 Systolic blood pressure 130 mm[Hg] Dr. Trudi Silverio MD Work Phone: 0(779)[phone] [place] [address] 06-28-2023 11:10-0400 Diastolic blood pressure 79 mm[Hg] Dr. Trudi Silverio Work Phone: 8(990)773-562344 [place] [address] 06-28-2023 11:10-0400 Heart rate 78 /min Dr. Trudi Silverio Work Phone: 4([phone])732-226444 [place] [address] 06-28-2023 11:10-0400 Respiratory rate 16 /min Dr. Trudi Silverio Work Phone: 1(892)[phone] [place] [address] 06-28-2023 11:10-0400 SaO2% (BldA) [Mass fraction] 100 % Dr. Trudi Silverio Work Phone: 0(005)[phone] [address] 06-28-2023 11:10-0400 Systolic blood pressure 129 mm[Hg] Dr. Trudi Silverio Work Phone: 2(901)541-829544 [place] [address] 06-28-2023 10:46-0400 Body height 162.[address] Trudi Silverio Work Phone: 2(434)468-361416 [place] [address] 06-28-2023 10:46-0400 Body mass index (BMI) [Ratio] 24 kg/m2 Dr. Trudi Silverio Work Phone: 4(029)[phone] [address] 06-28-2023 10:46-0400 Body temperature 97.9 [degF] Dr. Trudi Silverio Work Phone: 1(259)[phone] [place] [address] 06-28-2023 10:46-0400 Body weight 63.[address] Trudi Silverio Work Phone: 8(129)133-228816 [place] [address] 05-27-2023 08:02-0400 Body mass index (BMI) [Ratio] 23.5 kg/m2 Dr. Trudi Silverio Work Phone: [facility] 05-27-2023 08:02-0400 Body temperature 98 [degF] Dr. Trudi Silverio Work Phone: [facility] 05-27-2023 08:02-0400 Body weight 64.[address] Trudi Silverio Work Phone: [facility] 05-27-2023 08:02-0400 Diastolic blood pressure 76 mm[Hg] Dr. Trudi Silverio Work Phone: [facility] 05-27-2023 08:02-0400 Heart rate 70 /min Dr. Trudi Silverio Work Phone: [facility] 05-27-2023 08:02-0400 Respiratory rate 16 /min Dr. Trudi Silverio Work Phone: [facility] 05-27-2023 08:02-0400 SaO2% (BldA) [Mass fraction] 98 % Dr. Trudi Silverio Work Phone: [facility] 05-27-2023 08:02-0400 Systolic blood pressure 122 mm[Hg] Dr. Trudi Silverio Work Phone: [facility] 03-20-2023 08:10-0400 Body temperature 98.4 [degF] Alina Ethridge PA-C Work Phone: [facility] 03-20-2023 08:10-0400 Diastolic blood pressure 74 mm[Hg] Alina Ethridge PA-C Work Phone: [facility] 03-20-2023 08:10-0400 Heart rate 100 /min Alina Ethridge PA-C Work Phone: [facility] 03-20-2023 08:10-0400 SaO2% (BldA) [Mass fraction] 97 % Alina Karishma PA-C Work Phone: [facility] 03-20-2023 08:10-0400 Systolic blood pressure 102 mm[Hg] Alina Ethridge PA-C Work Phone: [facility] 03-06-2023 11:20-0400 Heart rate 84 /min Ramandeep Sesay MD Work Phone: [facility] 03-06-2023 11:20-0400 SaO2% (BldA) [Mass fraction] 98 % Ramandeep Sesay MD Work Phone: [facility] 03-06-2023 11:10-0400 Diastolic blood pressure 76 mm[Hg] Ramandeep Sesay MD Work Phone: [facility] 03-06-2023 11:10-0400 Respiratory rate 16 /min Ramandeep Sesay MD Work Phone: [facility] 03-06-2023 11:10-0400 Systolic blood pressure 120 mm[Hg] Ramandeep Sesay MD Work Phone: [facility] 03-06-2023 09:20-0400 Body temperature 97.81 [degF] Ramandeep Sesay MD Work Phone: [facility] 02-08-2023 09:00-0400 Body height 162.6 cm Alina Ethridge PA-C Work Phone: [facility] 02-08-2023 09:00-0400 Body temperature 98.49 [degF] Alina Karishma PA-C Work Phone: [facility] 02-08-2023 09:00-0400 Body weight 62.05 kg Alina Ethridge PA-C Work Phone: [facility] 02-08-2023 09:00-0400 Diastolic blood pressure 80 mm[Hg] Alina Ethridge PA-C Work Phone: [facility] 02-08-2023 09:00-0400 Heart rate 107 /min Alina Karishma PA-C Work Phone: [facility] 02-08-2023 09:00-0400 SaO2% (BldA) [Mass fraction] 98 % Alina Karishma PA-C Work Phone: [facility] 02-08-2023 09:00-0400 Systolic blood pressure 106 mm[Hg] Alina Schwarz PA-C Work Phone: [facility] 02-06-2023 08:59-0400 Body height 165.[address] Trudi Silverio Work Phone: [facility] 02-06-2023 08:59-0400 Body mass index (BMI) [Ratio] 23 kg/m2 Dr. Trudi Silverio Work Phone: [facility] 02-06-2023 08:59-0400 Body weight 62.[address] Trudi Silverio Work Phone: [facility] 02-06-2023 08:59-0400 Diastolic blood pressure 62 mm[Hg] Dr. Trudi Silverio Work Phone: [facility] 02-06-2023 08:59-0400 Systolic blood pressure 118 mm[Hg] Dr. Trudi Silverio Work Phone: [facility] 01-31-2022 08:16-0400 Body height 165.[address] Daniel Jay Work Phone: [facility] Work Phone: 01-31-2022 08:16-0400 Body mass index (BMI) [Ratio] 22.3 kg/m2 Dr. Daniel Jay Work Phone: [facility] Work Phone: 01-31-2022 08:16-0400 Body weight 60.[address] Daniel Jay Work Phone: [facility] Work Phone: 01-31-2022 08:16-0400 Diastolic blood pressure 70 mm[Hg] Dr. Daniel Jay Work Phone: [facility] Work Phone: 01-31-2022 08:16-0400 Systolic blood pressure 118 mm[Hg] Dr. Daniel Jay Work Phone: [facility] Work Phone: Encounters Encounter Date Encounter Type Care Provider Facility Start: 05-26-2025 End: 05-26-[address] Trudi Silverio MD Work Phone: -Laboratory Specimen Start: 05-26-2025 End: 05-26-2025 Patient encounter procedure Francie Martinez PHYSICIAN OFFICE NURSE-C -Laboratory Specimen Work Phone: Start: 05-26-2025 End: 05-26-2025 ambulatory Francie Martinez NP Facility:[facility] Start: 05-24-2025 End: 05-24-[address] Cornelius Gardner MD -[facility] Work Phone: Start: 05-24-2025 End: 05-24-[address] Trudi Silverio MD Work Phone: -[facility] Start: 05-24-2025 End: 05-24-2025 ambulatory Cornelius Gardner Facility:[facility] Start: 03-03-2025 End: 03-03-2025 Patient encounter status Brenda Triana PHYSICIAN OFFICE NURSE-C [facility] Start: 03-03-2025 End: 03-03-[address] Trudi Silverio MD Work Phone: [facility] Work Phone: Start: 03-03-2025 End: 03-03-2025 Patient encounter procedure Brenda Triana PHYSICIAN OFFICE NURSE-C -[facility] Work Phone: Start: 03-03-2025 End: 03-03-[address] Trudi Silverio MD Work Phone: [facility] Work Phone: Start: 03-03-2025 End: 03-03-[address] Trudi Silverio MD -Laboratory [facility] Start: 03-03-2025 End: 03-03-2025 ambulatory Trudi Silverio Facility:[facility] Start: 07-03-2024 End: 07-03-2024 ambulatory Trudi Silverio Facility:[facility] Start: 10-30-2023 End: 10-30-2023 ambulatory [facility] Work Phone: Start: 10-30-2023 End: 10-30-2023 Discharged Recurring [facility]-Physical Therapy Work Phone: Start: 09-20-2023 End: 09-20-2023 ambulatory [facility] Work Phone: Start: 09-20-2023 End: 09-20-2023 Patient encounter procedure [facility], [place] Work Phone: Start: 09-06-2023 End: 09-06-[address] Trudi Silverio Work Phone: [facility] Work Phone: Start: 09-06-2023 End: 09-06-[address] [facility]io [facility] Start: 06-28-2023 End: 06-28-[address] Trudi Silverio Work Phone: [facility] Work Phone: Start: 06-28-2023 End: 06-28-[address] Trudi Silverio Work Phone: [facility] Out Work Phone: Start: 05-27-2023 End: 05-27-[address] Trudi Silverio Work Phone: [facility] Work Phone: Start: 03-20-2023 End: 03-20-2023 ambulatory TRUDI SILVERIO Facility:[facility] Start: 03-20-2023 End: 03-20-2023 Patient encounter procedure Alina Schwarz PA-C Work Phone: General Surgery Comment on above: Long-term current us e of proton pump inhibitor therapy (Primary Dx); Gastric polyposis Start: 03-11-2023 E-mail encounter fro m caregiver Ramandeep Sesay MD Work Phone: [facility] Start: 03-11-2023 Follow-up encounter Ramandeep Walker MD Work Phone: General Surgery Comment on above: EGD follow up care Start: 03-08-2023 Telephone encounter Ramandeep Walker MD Work Phone: General Surgery Comment on above: Patient Question (So re throat) Start: 03-06-2023 End: 03-06-2023 ambulatory TRUDI SILVERIO Facility:[facility] Start: 03-06-2023 End: 03-06-2023 Subsequent hospital visit by physician Ramandeep Sesay MD Work Phone: Ambulatory Surgery Comment on above: Gastroesophageal ref lux disease with esophagitis without hemorrhage [K21.00] Start: 02-11-2023 End: 02-11-[address] Trudi Silverio Work Phone: [facility] Start: 02-08-2023 End: 02-09-2023 ambulatory TRUDI SILVERIO Facility:[facility] Start: 02-08-2023 End: 02-08-2023 Patient encounter procedure Alina Schwarz PA-C Work Phone: General Surgery Comment on above: History of stomach u lcers (Primary Dx); Gastroesophageal reflux disease, unspecified whether esophagitis present; Long-term current use of proton pump inhibitor therapy Start: 02-06-2023 End: 02-06-[address] Trudi Silverio Work Phone: [facility] Work Phone: Start: 02-06-2023 End: 02-06-[address] Trudi Silverio Work Phone: [facility] Start: 06-20-2022 End: 06-20-2022 ambulatory [facility] Work Phone: Start: 06-20-2022 End: 06-20-2022 Patient encounter procedure [facility]Laboratory, [facility] Start: 01-31-2022 End: 01-31-[address] Daniel Jay Work Phone: [facility] Start: 10-25-2021 End: 10-25-[address] Daniel Jay Work Phone: [facility]-Laboratory, Specimen Procedures Date Procedure Procedure Detail Performing Clinician Start: 05-26-[address] Trudi Silverio MD Work Phone: Start: 05-24-[address] Trudi Silverio MD Work Phone: Start: 03-03-[address] Trudi Silverio MD Work Phone: Start: 03-03-2025 Vitamin D, 25-hydroxy measurement Dr. Anusha Silverio MD Work Phone: Comment on above: Vitamin D StatusDeficiency: <20 ng/mL (5 0nmol/L)Insufficiency: 20-30 ng/mL (50-75 nmol/L)Sufficiency: 30-100 ng/mL (75-250 nmol/L)Toxicity: >100 ng/mL (>250 nmol/L) Start: 09-20-2023 X-ray of lumbar spine, two or three views Start: 03-06-2023 Level iv surg pathology gross&microscopic exam Ramandeep Sesay MD Work Phone: Start: 03-06-2023 Esophagogastroduodenoscopy transoral diagnostic Alina Schwarz PA-C Work Phone: Start: 02-06-[address] Trudi Silverio Work Phone: Start: 01-31-2022 Dual energy X-ray absorptiometry Dr. Olga Jay Work Phone: Start: 01-31-[address] Daniel Jay Work Phone: Start: 07-18-2016 Colonoscopy Alina Schwarz PA-C Work Phone: Start: 11-02-2015 Mammography Alina Schwarz PA-C Work Phone: Start: 11-09-2011 Lipid 1996 panel - Serum or Plasma Ramandeep Sesay MD Work Phone: Plan of Treatment Date Care Activity Detail Author Start: 07-18-2026 Colonoscopy COLONOSCOPY [facility] Start: 07-18-2026 COLORECTAL CANCER SCREENING COLORECTAL CANCER SCREENING [facility] Start: 03-03-2025 Screening mammography SCRN MAMM (CAD)W/ASTRID BILAT [facility] Start: 06-28-2023 Iv infusion therapy/prophylaxis /dx 1st to 1 hr THER/PROPH/DIAG IV INF INIT [facility] Start: 06-07-2023 Covid-19 Vaccine () Covid-19 Vaccine () [facility] Start: 06-07-2023 Influenza vaccination Influenza Vaccine (#1) [facility] Start: 02-08-2023 Shingrix Vaccine (2 of 2) Shingrix Vaccine (2 of 2) [facility] Start: 02-06-2023 Patient referral [facility] Work Phone: Start: 10-07-2022 DEPRESSION ASSESSMENT DEPRESSION ASSESSMENT [facility] Start: 11-07-2021 HPV TESTING HPV TESTING [facility] Start: 11-07-2021 PAP TESTING PAP TESTING [facility] Start: 07-09-2020 DIABETES SCREEN DIABETES SCREEN [facility] Start: 07-09-2020 Diabetes Screening Diabetes Screening [facility] Start: 2020 SHINGRIX VACCINE (1 of 2) SHINGRIX VACCINE (1 of 2) [facility] Start: 07-10-2017 Urine microalbumin profile [facility] Start: 11-09-2016 Lipid 1996 panel - Serum or Plasma Lipid Screening [facility] Start: 11-09-2016 LIPID SCREEN LIPID SCREEN [facility] Start: 11-02-2016 Mammography [facility] Start: 2015 COLOGUARD (FIT-DNA) COLOGUARD (FIT-DNA) [facility] Start: [address] COLONOGRAPHY [facility] Start: 2015 FECAL OCCULT BLOOD FECAL OCCULT BLOOD [facility] Start: 2015 SIGMOIDOSCOPY SIGMOIDOSCOPY [facility] Start: 1988 HEPATITIS C SCREENING HEPATITIS C SCREENING [facility] Start: 1988 HIV SCREENING HIV SCREENING [facility] Start: 1970 HEPATITIS B (1 of 3 - 3-dose series) HEPATITIS B (1 of 3 - 3-dose series) [facility] Start: 1970 Hepatitis B Vaccine (1 of 3 - 3-dose series) Hepatitis B Vaccine (1 of 3 - 3-dose series) [facility] Patient referral [facility] Work Phone: Urinalysis complete panel - Urine [facility] Immunizations Immunization Date Immunization Notes Care Provider Linsey cee 07-18-2022 influenza virus vaccine, unspecified formulation Ramandeep Sesay MD Work Phone: [facility] 07-28-2011 influenza virus vaccine, unspecified formulation Alina Karishma PA-C Work Phone: [facility] Work Phone: 08-10-2010 influenza virus vaccine, unspecified formulation Alina Karishma PA-C Work Phone: [facility] 07-09-2009 influenza virus vaccine, unspecified formulation Alina Karishma PA-C Work Phone: [facility] 09-07-2008 influenza virus vaccine, unspecified formulation Alina Ethridge PA-C Work Phone: [facility] 07-10-2007 tetanus toxoid, redu shania diphtheria toxoid, and acellular pertussis vaccine, adsorbed Alina Ethridge PA-C Work Phone: [facility] Work Phone: 08-15-2006 influenza virus vaccine, live, attenuated, for intranasal use Alina Ethridge PA-C Work Phone: [facility] Work Phone: 08-17-2005 influenza virus vaccine, live, attenuated, for intranasal use Alina Ethridge PA-C Work Phone: [facility] Work Phone: Payers Date Payer Category Payer Self-pay [id number] 2022 Unknown [id number] 2022 Unknown [employer] PPO [id number] 2022-[facility] [phone] [address] [place] [address] PPO [id number] 2016 Private Health Insurance [id number] Unknown SELF PAY INSURANCE [id number] Unknown [facility] [employer] [id number] Unknown [id number] Unknown [id number] Unknown [id number] Unknown [id number] Unknown [id number] Unknown [id number] Unknown [id number] Social History Date Type Detail Facility Start: 01-31-2022 End: 02-11-2023 Tobacco smoking status NHIS Unknown if ever smoked [facility] Start: 09-18-2019 Spouse/ Signif icant Other [facility] Start: 1970 Sex Assigned At Female W [facility] Start: 08-02-2011 End: 05-24-2025 Tobacco smoking status NHIS Never smoked tobacco [facility] Start: 08-02-2011 End: 03-06-2023 Tobacco use and exposure Smokeless tobacco non-user [facility] Start: 02-08-2023 End: 03-06-2023 Alcohol intake Current drinker of alcohol (finding) [facility] Start: 02-08-2023 End: 03-06-2023 Alcohol intake [facility] Start: 11-07-2016 Alcohol Comment occ [facility] Start: 1970 Sex Assigned At Not on file [facility] Start: 02-08-2023 End: 03-06-2023 Tobacco use panel [facility] National Score (1-100), lower number is lower risk 35 [facility] Mental Status Date Assessment Result Facility 06-28-2023 Cognitive function Voice/Name [facility] Work Phone: Clinical Notes 07-09-2017 to 03-03-2025 Note Date & Type Note Facility 03-03-2025 Evaluation note Diagnosis Onset Date Resolution Family history of breast cancer gene mutation in first degree relative acute March 03, 2025 1:06pm Family history of uterine cancer acute March 03, 2025 1:06pm Hot flashes acute March 03 1:06pm Osteoporosis chronic March 03 1:06pm Routine gynecological examination noneactive March 03, 2025 1:06pm [facility] Work Phone: 1(287) 490-127005-28-2025 Evaluation note* Diagnosis Onset Date Resolution Status Admit Date Family history of breast cancer gene mutation in first degree relative acute March 03, 2025 1 :06pm Family history of uterine cancer acute March 03, 2025 1 :06pm Hot flashes acute March 03 1:06pm Osteoporosis chronic March 03 1:06pm Routine gynecological examination noneactive March 03, 2025 1 :06pm Osteoporosis chronic May 24, 2025 7:55am [facility] Work Phone: 1(271) 641-970605-28-2025 Evaluation note* Diagnosis Onset Date Resolution Status Admit Date Family history of breast cancer gene mutation in first degree relative acute March 03, 2025 1 :06pm Family history of uterine cancer acute March 03, 2025 1 :06pm Hot flashes acute March 03 1:06pm Osteoporosis chronic March 03 1:06pm Routine gynecological examination noneactive March 03, 2025 1 :06pm Osteoporosis chronic May 24, 2025 7:55am Dysuria resolved May 24 025 7:55am [facility] Work Phone: 1(633) 159-795502-12-2024 Discharge summary Author Gary Locke [facility] November 18, 2023 7:39pm Note Date/Time October 30, 2023 9 :43am [facility] Physical Therapy [facility] [place] [address] / REHABILITATION SERVICES DISCHARGE SUMMARY MR#: [id number] Acct: [id number] Name: NADIRA WONG Rep #: [id number] 002 : 1970 53 From: Cert. KRIS Dumont, OCS Referring Dr.: Dr. Trudi Silverio MD Status: REG R Insurance: [employer] [facility] [employer] Discharge Summary D/C summary: It has been my pleasure to treat NADIRA WONG referred by Dr. Trudi Silverio MD, with the diagnosis of DDD LUMBAR for a total of 3 visit(s). Discharge Date: 10/30/23 Please see the following information for a summary of their discharge status. Subjective Subjective: Doing okay seems some better Affects sleeping Pain Right Back: Pain Intensity (Out of 10): 4 Overall Improvement % Improvement: 40 Objective Objective/Function: POSTURE: slight increase lordosis PALPATION: tender right LS/SI SYMMTRIES: Pelvis/PSIS/ASIS symmetrical GAIT: reciprocal pattern NEURO: denies paresthesia/tingling ,reflexes L3-4,L4-5 ,L5-S1 2/3 MMT: quads/hams 4/5 ,hip flexion 4-/5 ,ankle 5/5 LUMBAR ROM: flexion min loss pain, extension right side pain , side glides mid loss pain right Goals Goal 1:: Patient to be I with HEP for back Goal Progress: Goal Met Goal 2:: Patient to improve lumbar ROM for function of recovery for job demands . Goal Progress: Progressing Goal 3:: Patient to demonstrate 50% improvement with less pain and improved function with job demands Goal Progress: Progressing Goal 4:: Patient to improve hip strength to 4/5 to improve function and job demands Goal Progress: Progressing Goal 5:: Patient to improve back oswestry score by 5 points to improve QOL Goal Progress: Progressing Plan Plan: D/C HEP D/C Information Discharge Comments: HEP d/c sentence: If there are questions or concerns regarding this patient's physical therapy, please feel free to call me at [phone]. Thank you for the referral of thispatient. Sincerely, Gary Locke PT, Cert MDT, OCS Balance/Gait/Functional tests Balance/Special Test Scores Oswestry Low Back Score: 6 Improvement % Improvement: 40 <Electronically signed by Gary Locke PT Cert. KRIS, OCS> 11/18/231938 CC: Dr. Trudi Silverio MD ~ TERE Signed [facility] Work Phone: 1(718) 168-470906-14-2023 NoteHNO ID: [id number] Author: Alina Schwarz PA-C Service: ? Author Type: Physician Reception Specialist Type: Progress Notes Filed: 03/26/2023 1:57 PM Note Text: FOLLOW UP VISIT - ENDOSCOPY NAME: Nadira Contreras [facility] NO.: [id number] DATE OF SERVICE: 03/20/2023 : 1970 REFERRING PHYSICIAN: Trudi Silverio MD Nadira is a patient I am following for GERD, history of ulcers and history of stomach tumor resection. Dr. Sesay performed upper endoscopy on 03/06/23. The patient was found to have multiple gastric polyps and irregular Z-line. Pathology demonstrated: FINAL DIAGNOSIS A. Antrum, biopsy: -Mild chronic inactive gastritis and reactive gastropathy in antrum-body transitional mucosa. -Negative for intestinal metaplasia or dysplasia. -No H. pylori on routine stain. B. Stomach, polyps, biopsy: -Multiple fundic gland polyps. C. Esophagogastric junction, biopsy: -Squamous epithelium with no diagnostic abnormality. -Separate fragment of gastric cardia/fundic-type mucosa with mild reactive changes. -Negative for intestinal metaplasia or dysplasia. The patient notes no complaints since the procedure. VITALS: Last menstrual period 06/26/2017. General: patient is alert, cooperative, pleasant and in no acute distress On examination, the abdomen is benign. Assessment IMPRESSION: gastric polyposis, likely related to long-term PPI use. GERD, gastritis PLAN: The operative findings and pathology report were reviewed with the patient, and the patient has had the opportunity to ask questions and have questions answered. If the patient notes any problems or changes in bowel function, the patient should contact me immediately. Otherwise I recommend follow up endoscopy in 3 years if PPI use is continued long-term. Reviewed dietary and lifestyle modifications for GERD and gastritis Patient verbalized understanding of all above and agreed with the plan Diagnoses: (Z79.899) Long-term current use of proton pump inhibitor therapy (primary encounter diagnosis) (K31.7) Gastric polyposis I spent a total of 24 minutes on the date of the service which included preparing to see the patient, [id number] patient care, completing clinical documentation, obtaining and/or reviewing separately obtained history, counseling and educating the patient/family/caregiver, independently interpreting results (not separately reported), and communicating results to the patient/family/caregiver. RASHEEDA Saini-[facility]06-14-2023 Instructions* Patient Instructions* Alina Schwarz PA-C - 03/20/2023 8:33 AM EDT -Repeat EGD in 3 years for surveillance due to long-term PPI use and fundic gland polyposis -May add carafate as needed The following instructions are important for you related to your office visit today with the [facility] General Surgeons. INSTRUCTIONS FOR PEPTIC ULCER DISEASE - ESOPHAGITIS I discussed with you the findings of your upper endoscopy. Your upper endoscopy demonstrated gastritis and signs of GERD Esophagitis may be a form of peptic irritation, with acid moving from the stomach to the esophagus (gastroesophageal reflux) Factors that increase acid production include smoking and stress. If you smoke, stopping smoking will often cure these issues without needing other medications. Over the counter medications including antiacids and acid reducing medications including H2 blockers (Zantac and the like) and proton pump inhibitors (prilosec, prevacid and the like) neutralize or prevent acid production. Prescription strength proton pump inhibitors (PPIs) may be necessary if your symptoms persist. Carafate may be added to PPI treatment in refractory cases. Avoiding smoking, alcohol and antiinflammatory medications are important in the successful treatment of reflux esophagitis and peptic diseases. Other factors that contribute to GERD and esophagitis are being overweight, eating large meals before laying down and certain foods. Weight loss will help improve many GERD complaints. Remaining upright after eating large meals and having a small supper will also help symptoms. Avoiding food that contribute to reflux - chocolate, caffeine, cheddar cheese may also help. Follow up upper endoscopy may be recommended to assure healing of the esophagus. New or worsening symptoms such are epigastric pain, burning, difficulty swallowing or food stickingshould be relayed to your physician. Feeling full early after eating, or black, tarry, foul smelling stools are also worrisome. If you have any difficulties or concerns, you should contact our office immediately. If you note any additional difficulties, questions, or concerns, you should contact our office immediately @ [phone] and ask to be transferred to the General Surgery department. [facility] History of Present illness Narrative* Alina Schwarz PA-C - 03/20/2023 8:07 AM EDT FOLLOW UP VISIT - ENDOSCOPY NAME: Nadira Contreras [facility] NO.: [id number] DATE OF SERVICE: 03/20/2023 : 1970 REFERRING PHYSICIAN: Trudi Silverio MD Nadira is a patient I am following for GERD, history of ulcers and history of stomach tumor resection. Dr. Sesay performed upper endoscopy on 03/06/23. The patient was found to have multiple gastric polyps and irregular Z-line. Pathology demonstrated: FINAL DIAGNOSIS A. Antrum, biopsy: -Mild chronic inactive gastritis and reactive gastropathy in antrum-body transitional mucosa. -Negative for intestinal metaplasia or dysplasia. -No H. pylori on routine stain. B. Stomach, polyps, biopsy: -Multiple fundic gland polyps. C. Esophagogastric junction, biopsy: -Squamous epithelium with no diagnostic abnormality. -Separate fragment of gastric cardia/fundic-type mucosa with mild reactive changes. -Negative for intestinal metaplasia or dysplasia. The patient notes no complaints since the procedure. VITALS: Last menstrual period 06/26/2017. General: patient is alert, cooperative, pleasant and in no acute distress On examination, the abdomen is benign. Assessment IMPRESSION: gastric polyposis, likely related to long-term PPI use. GERD, gastritis PLAN: The operative findings and pathology report were reviewed with the patient, and the patient has hadthe opportunity to ask questions and have questions answered. If the patient notes any problems or changes in bowel function, the patient should contact me immediately. Otherwise I recommend follow up endoscopy in 3 years if PPI use is continued long-term. Reviewed dietary and lifestyle modifications for GERD and gastritis Patient verbalized understanding of all above and agreed with the plan Diagnoses: (Z79.899) Long-term current use of proton pump inhibitor therapy (primary encounter diagnosis) (K31.7) Gastric polyposis I spent a total of 24 minutes on the date of the service which included preparing to see the patient, [id number] patient care, completing clinical documentation, obtaining and/or reviewing separately obtained history, counseling and educating the patient/family/caregiver, independently interpretin g results (not separately reported), and communicating results to the patient/family/caregiver. Alina Schwarz PA-C documented in this encounterGrant Hospital06-02-2023 Miscellaneous Notes* Telephone Encounter - Taisha CantrellWAYNE - 03/08/2023 3:48 PM EDT Patient call in with concerns of having a sore throat and some difficulty swallowing, feels like Ihave something in my throat when I swallow. Informed patient that just had a EGD done on 01/04/23 and may have some tenderness d/t a scope going down the esophagus. Advised patient if symptoms worsen, throat swelling and difficulty breathing to go to Emergency room. Also recommended eating some cold food / drink to sooth her throat. Asked patient to call office back on [place] to let us know how doing. Patient voiced understanding. Taisha Cantrell LPN documented in this encounterGrant Hospital05-31-2023 History and physical note * Ramandeep Sesay MD - 03/06/2023 12:45 PM EDT UPDATED PROCEDURAL SEDATION HISTORY AND PHYSICAL EXAMINATION SERVICE DATE: 03/06/2023 SERVICE TIME: 9:55 PHYSICAL EXAM MUST BE COMPLETED ON ADMISSION PROCEDURE: EGD, possible biopsies Procedure Indications: GERD, history of PUD The History and Physical (completed in the past 30 days) has been reviewed and the patient has beenexamined. The contents accurately reflect the patient's condition with the following additions or revisions since the H&P was completed. ASA Class: ASA Class:: Patient with mild systemic disease Examination indicates no changes. AIRWAY: Airway Visualization of Uvula: Yes Mouth opening greater than 2 fingerbreadths: Yes Neck Full Range of Motion: Yes LUNGS: Lungs clear to auscultation CARDIAC: Regular rhythm,Regular rate Provisional Diagnosis/Treatment Plan: EGD, possible biposies SEDATION GOAL: Moderate This H&P can be found in the Electronic Medical Record . SIGNATURE: Ramandeep Sesay MD PATIENT NAME: Nadira Wong DATE: March 06, 2023 TIME: 9:55 AM Source Note - Ramandeep Sesay MD - 03/06/2023 12:45 PM EDT HISTORY AND PHYSICAL Nadira Wong 1970 REFERRING PHYSICIAN: Trudi Silverio, * CHIEF COMPLAINT: Consult (EGD - GERD) HPI: The patient is a 52 year old female referred for endoscopy. Nadira notes long-term issues with GERD for which she is maintained on a PPI, still with some occasional breakthrough symptoms. 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 Path results showed granuloma and fibrosis, no dysplasia or malignancy. Patient denies any acute change in bowel habits, weight changes, blood in stools, black tarry stools or abdominal pain. Denies family history of colon issues. Up to date on screening colonoscopy-last was in 2016. Patient denies chest pain, shortness of breath or recent hospitalizations. Denies problems with sedation in the past. 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 EGD 12/2011 Dyskinesia of esophagus Dysmenorrhea Esophageal reflux 2001 Neurasthenia hands Palpitations 2006 PAST SURGICAL HISTORY PAST SURGICAL HISTORY Procedure Laterality Date APPENDECTOMY 02/2001 BX BREAST PERC VACUUM/ROTN 08/19/2009 Right, fibrocystric changes, IDH without atypia CHOLECYSTECTOMY 2001 COLONOSCOPY FLX DX W/COLLJ SPEC WHEN PFRMD 05/23/2001 Colonoscopy COLONOSCOPY FLX DX W/COLLJ SPEC WHEN PFRMD 07/18/2016 Colonoscopy (MAC) EGD ABLATION GEN ANES 07/09/2017 EGD TRANSORAL BIOPSY SINGLE/MULTIPLE 12/20/2011 benign fundic gland polyp ESOPHAGOGASTRODUODENOSCOPY TRANSORAL DIAGNOSTIC 10/2001 EGD ESOPHAGOGASTRODUODENOSCOPY TRANSORAL DIAGNOSTIC 07/08/2007 EGD ESOPHAGOGASTRODUODENOSCOPY TRANSORAL DIAGNOSTIC 07/18/2016 EGD (MAC) PAST SURGICAL HISTORY OF fx of right middle finger PAST SURGICAL HISTORY OF 10/26/2011 Essure procedure REPAIR OF FOOT BONES Left CURRENT MEDICATIONS Current Outpatient Medications Medication Sig buPROPion SR (WELLBUTRIN SR) 150 mg 12 hr tablet Take 150 mg by mouth once daily. cholecalciferol (VITAMIN D-3) 5,000 unit tab Take 4,000 Units by mouth once daily. pantoprazole DR (PROTONIX) 40 mg tablet Take 1 tablet by mouth twice daily. melatonin 10 mg tab Take 1 tablet by mouth at bedtime as needed. ascorbic acid(CHEWABLE VITAMIN C 250 MG TAB) Take one tab(s) daily MULTIVITAMIN TABLET PO qd ondansetron (ZOFRAN, HYDROCHLORIDE,) 4 mg tablet Take 1 tablet by mouth every 8 hours as needed.FOR NAUSEA (Patient not taking: Reported on 02/08/2023) acetaminophen (TYLENOL) 650 mg/20.3 mL soln Take 20.3 mL by mouth every 6 hours as needed (headache). (Patient not taking: Reported on 02/08/2023) Norethindrone-Eth Estradiol (NECON , ,) 1-35 mg-mcg per tablet Take 1 pill daily of active pills up to 12 weeks for continuous cycling (Patient not taking: Reported on 02/08/2023) Calcium-Cholecalciferol, D3, 600-125 mg-unit tab Take 1 tablet by mouth twice daily. (Patient not taking: Reported on 02/08/2023) No current facility-administered medications for this visit. ALLERGIES: Biaxin [Clarithromycin] PERSONAL HISTORY: SOCIAL HISTORY Social History Tobacco Use Smoking status: Never Smokeless tobacco: Never Vaping Use Vaping Use: Never used Substance Use Topics Alcohol use: Yes Alcohol/week: 5.0 standard drinks Types: 2 Glasses of Wine (5oz) per week Comment: occ Drug use: No FAMILY HISTORY: FAMILY HISTORY FAMILY HISTORY Problem Relation Age of Onset Lipids Mother Hypertension Father Prostate Cancer Father Diabetes Father other (gangrene) Father aputate bilat legs other (hodgkins lymphoma) Maternal Grandmother Cancer Maternal Grandfather basal cell cancers (skin) Colon Cancer Other none Diabetes Other none Coronary Artery Disease Other none REVIEW OF SYMPTOMS: The review of systems data was entered by the nurse and reviewed by wi Nursing Notes: Vijaya Prabhakar LPN 02/08/2023 9:12 AM Signed REVIEW OF SYSTEMS: General: The patient denies fatigue, denies weight loss, denies weight gain, NOTES feeling hot, anddenies feelings of cold. Eyes: The patient denies glaucoma, denies eye injury/surgery, wears glasses or contacts. Ear/Nose/Throat: The patient denies allergies, denies hayfever, denies ear infections, and denies bloody noses. Cardiovascular: The patient denies chest pain, denies heart disease, denies high blood pressure,denies cardiac stent, denies prior heart attack, denies irregular heart beat, denies high cholesterol, denies poor circulation, denies heart failure, other cardiac issues, denies claudication, denies cold feet, denies peripheral arterial stent. Respiratory: The patient denies tuberculosis, denies pneumonia, denies frequent cough, denies pulmonary embolism, denies shortness of breath, and denies coughing up blood. Gastrointestinal: The patient denies difficulty swallowing, NOTES acid reflux, NOTES ulcers, deniesvomiting, denies jaundice/hepatitis, denies gallbladder problems, denies black or tarry stools, NOTES hemorrhoids, denies bleeding from rectum, denies diverticulitis, NOTES constipation, denies diarrhea, denies loss of stool control, and denies hernias. Kidney/Bladder: The patient denies kidney stones, denies urine infections, and denies bloody urine. Skin: The patient denies a history of skin cancer, denies bleeding/changing moles, and denies a history of skin rash. Neurologic: The patient denies a history of epilepsy/convulsions, denies headaches, denies head/spinal injuries, and denies stroke/TIA. Psychiatric: The patient denies psychiatric medications, NOTES depression, and denies voices, denies substance abuse. Endocrine: The patient denies thyroid disorders, denies diabetes, and denies hormonal problems. Hematologic: The patient denies a history of bruising, denies bleeding, and denies anemia, denies blood clots. Infections: The patient denies a history of measles and mumps, denies rheumatic fever, and denies sexually transmitted diseases. Musculoskeletal: The patient denies back pain/injury, denies back problems, denies sciatica, deniesknee/foot trouble, NOTES arthritis, or denies gout. When was patient's last Mammogram screening? 02/2020 Last Colonoscopy: 07/2016 Vijaya Prabhakar LPN I have confirmed and edited as necessary, the PFSH and ROS obtained by others. Alina Schwarz PA-C PHYSICAL EXAMINATION: General: The patient is 52 year old female, well nourished, well hydrated in no acute distress. Thepatient is oriented to time, place, and person. VITALS: Blood pressure 106/80, pulse 107, temperature 36.9 C (98.5 F), height 162.6 cm (5' 4), weight 62.1 kg (136 lb 12.8 oz), last menstrual period 06/26/2017, SpO2 98 %. Body mass index is 23.48 kg/m . HEENT: Normal cephalic, ataumatic, pupils are equally round, sclera are anicteric, mucous membranesare moist, oropharynx is clear. Neck has no masses, asymmetry or lymphadenopathy. Respiratory: Clear to auscultation and percussion. Normal respiratory excursion and pattern. Cardiac: Examination is regular rate and rhythm. Normal S1/S2 Abdominal exam: Soft, nontender, with no palpable masses. No hepatosplenomegaly. No palpable hernias. Extremities: no clubbing, cyanosis or edema. No adenopathy. LABORATORY VALUES: As Noted RADIOLOGIC STUDIES: As Noted Assessment IMPRESSION: GERD, history of stomach ulcers and stomach lesion, long-term PPI use PLAN: I have reviewed my findings with the surgeon. Will plan for upper endoscopy. We discussed therisks and benefits of the planned endoscopy. I have informed the patient that complications can occur including failure to complete the endoscopy and perforation. The patient had the opportunity to ask questions concerning the planned endoscopy. My staff has also explained the procedure to the patient in understandable terms and has given the patient printed material concerning the procedure. Thepatient freely consents to surgery. The patient was offered a [facility]. I have counseled the patient regarding the risk of exposure to and/or potential harm posed by the COVID-19 virus with having a surgery/procedure at this time versus the risk of delaying the surgery/procedure. It is not possible to know either the risk of delaying the surgery or procedure or chance of getting an infection with perfect accuracy, but a joint decision was made between the patient and myself to proceed at this time with endoscopy. I have explained to the patient the difference between IV conscious sedation and MAC anesthesia - and I have offered either, according to the patient's wishes. I have explained that with IV conscioussedation there is no anesthesia provider available and therefore there is a limitation of the amount of IV medications that can be given and that the patient may wake up in the middle of the procedure and/or experience pain/discomfort during the procedure. Further discussion was done and the patient was given the opportunity to ask questions and all questions were answered. The patient chooses IVconscious sedation-has had both types of sedation in the past and denies issues with either Diagnoses: (Z87.11) History of stomach ulcers (primary encounter diagnosis) (K21.9) Gastroesophageal reflux disease, unspecified whether esophagitis present (Z79.899) Long-term current use of proton pump inhibitor therapy Consultation requested by Dr. Silverio for an opinion regarding GERD and need for surveillance EGD.My final recommendations will be communicated back to the requesting physician by way of shared Medical record or letter to requesting physician via [place] mail. Alina Schwarz PA-C * Ramandeep Sesay MD - 03/06/2023 12:45 PM EDT HISTORY AND PHYSICAL Nadira Wong 1970 REFERRING PHYSICIAN: Trudi Silverio, * CHIEF COMPLAINT: Consult (EGD - GERD) HPI: The patient is a 52 year old female referred for endoscopy. Nadira notes long-term issues with GERD for which she is maintained on a PPI, still with some occasional breakthrough symptoms. She also notes history of gastritis, ulcers and stomach tumor which was resected in 2016. Path results showed granuloma and fibrosis, no dysplasia or malignancy. Patient denies any acute change in bowel habits, weight changes, blood in stools, black tarry stools or abdominal pain. Denies family history of colon issues. Up to date on screening colonoscopy-last was in 2015. Patient denies chest pain, shortness of breath or recent hospitalizations. Denies problems with sedation in the past. 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 EGD 12/2011 Dyskinesia of esophagus Dysmenorrhea Esophageal reflux 2001 Neurasthenia hands Palpitations 2006 PAST SURGICAL HISTORY PAST SURGICAL HISTORY Procedure Laterality Date APPENDECTOMY 02/2001 BX BREAST PERC VACUUM/ROTN 08/19/2009 Right, fibrocystric changes, IDH without atypia CHOLECYSTECTOMY 2002 COLONOSCOPY FLX DX W/COLLJ SPEC WHEN PFRMD 05/23/2001 Colonoscopy COLONOSCOPY FLX DX W/COLLJ SPEC WHEN PFRMD 07/18/2016 Colonoscopy (MAC) EGD ABLATION GEN ANES 07/09/2017 EGD TRANSORAL BIOPSY SINGLE/MULTIPLE 12/20/2011 benign fundic gland polyp ESOPHAGOGASTRODUODENOSCOPY TRANSORAL DIAGNOSTIC 10/2001 EGD ESOPHAGOGASTRODUODENOSCOPY TRANSORAL DIAGNOSTIC 07/08/2007 EGD ESOPHAGOGASTRODUODENOSCOPY TRANSORAL DIAGNOSTIC 07/18/2016 EGD (MAC) PAST SURGICAL HISTORY OF fx of right middle finger PAST SURGICAL HISTORY OF 10/26/2011 Essure procedure REPAIR OF FOOT BONES Left CURRENT MEDICATIONS Current Outpatient Medications Medication Sig buPROPion SR (WELLBUTRIN SR) 150 mg 12 hr tablet Take 150 mg by mouth once daily. cholecalciferol (VITAMIN D-3) 5,000 unit tab Take 4,000 Units by mouth once daily. pantoprazole DR (PROTONIX) 40 mg tablet Take 1 tablet by mouth twice daily. melatonin 10 mg tab Take 1 tablet by mouth at bedtime as needed. ascorbic acid(CHEWABLE VITAMIN C 250 MG TAB) Take one tab(s) daily MULTIVITAMIN TABLET PO qd ondansetron (ZOFRAN, HYDROCHLORIDE,) 4 mg tablet Take 1 tablet by mouth every 8 hours as needed.FOR NAUSEA (Patient not taking: Reported on 02/08/2023) acetaminophen (TYLENOL) 650 mg/20.3 mL soln Take 20.3 mL by mouth every 6 hours as needed (headache). (Patient not taking: Reported on 02/08/2023) Norethindrone-Eth Estradiol (NECON , ,) 1-35 mg-mcg per tablet Take 1 pill daily of active pills up to 12 weeks for continuous cycling (Patient not taking: Reported on 02/08/2023) Calcium-Cholecalciferol, D3, 600-125 mg-unit tab Take 1 tablet by mouth twice daily. (Patient not taking: Reported on 02/08/2023) No current facility-administered medications for this visit. ALLERGIES: Biaxin [Clarithromycin] PERSONAL HISTORY: SOCIAL HISTORY Social History Tobacco Use Smoking status: Never Smokeless tobacco: Never Vaping Use Vaping Use: Never used Substance Use Topics Alcohol use: Yes Alcohol/week: 5.0 standard drinks Types: 2 Glasses of Wine (5oz) per week Comment: occ Drug use: No FAMILY HISTORY: FAMILY HISTORY FAMILY HISTORY Problem Relation Age of Onset Lipids Mother Hypertension Father Prostate Cancer Father Diabetes Father other (gangrene) Father aputate bilat legs other (hodgkins lymphoma) Maternal Grandmother Cancer Maternal Grandfather basal cell cancers (skin) Colon Cancer Other none Diabetes Other none Coronary Artery Disease Other none REVIEW OF SYMPTOMS: The review of systems data was entered by the nurse and reviewed by wi Nursing Notes: Vijaya Prabhakar LPN 02/08/2023 9:12 AM Signed REVIEW OF SYSTEMS: General: The patient denies fatigue, denies weight loss, denies weight gain, NOTES feeling hot, anddenies feelings of cold. Eyes: The patient denies glaucoma, denies eye injury/surgery, wears glasses or contacts. Ear/Nose/Throat: The patient denies allergies, denies hayfever, denies ear infections, and denies bloody noses. Cardiovascular: The patient denies chest pain, denies heart disease, denies high blood pressure,denies cardiac stent, denies prior heart attack, denies irregular heart beat, denies high cholesterol, denies poor circulation, denies heart failure, other cardiac issues, denies claudication, denies cold feet, denies peripheral arterial stent. Respiratory: The patient denies tuberculosis, denies pneumonia, denies frequent cough, denies pulmonary embolism, denies shortness of breath, and denies coughing up blood. Gastrointestinal: The patient denies difficulty swallowing, NOTES acid reflux, NOTES ulcers, deniesvomiting, denies jaundice/hepatitis, denies gallbladder problems, denies black or tarry stools, NOTES hemorrhoids, denies bleeding from rectum, denies diverticulitis, NOTES constipation, denies diarrhea, denies loss of stool control, and denies hernias. Kidney/Bladder: The patient denies kidney stones, denies urine infections, and denies bloody urine. Skin: The patient denies a history of skin cancer, denies bleeding/changing moles, and denies a history of skin rash. Neurologic: The patient denies a history of epilepsy/convulsions, denies headaches, denies head/spinal injuries, and denies stroke/TIA. Psychiatric: The patient denies psychiatric medications, NOTES depression, and denies voices, denies substance abuse. Endocrine: The patient denies thyroid disorders, denies diabetes, and denies hormonal problems. Hematologic: The patient denies a history of bruising, denies bleeding, and denies anemia, denies blood clots. Infections: The patient denies a history of measles and mumps, denies rheumatic fever, and denies sexually transmitted diseases. Musculoskeletal: The patient denies back pain/injury, denies back problems, denies sciatica, deniesknee/foot trouble, NOTES arthritis, or denies gout. When was patient's last Mammogram screening? 02/2020 Last Colonoscopy: 07/2016 Vijaya Prabhakar LPN I have confirmed and edited as necessary, the PFSH and ROS obtained by others. Alina Schwarz PA-C PHYSICAL EXAMINATION: General: The patient is 52 year old female, well nourished, well hydrated in no acute distress. Thepatient is oriented to time, place, and person. VITALS: Blood pressure 106/80, pulse 107, temperature 36.9 C (98.5 F), height 162.6 cm (5' 4), weight 62.1 kg (136 lb 12.8 oz), last menstrual period 06/26/2017, SpO2 98 %. Body mass index is 23.48 kg/m . HEENT: Normal cephalic, ataumatic, pupils are equally round, sclera are anicteric, mucous membranesare moist, oropharynx is clear. Neck has no masses, asymmetry or lymphadenopathy. Respiratory: Clear to auscultation and percussion. Normal respiratory excursion and pattern. Cardiac: Examination is regular rate and rhythm. Normal S1/S2 Abdominal exam: Soft, nontender, with no palpable masses. No hepatosplenomegaly. No palpable hernias. Extremities: no clubbing, cyanosis or edema. No adenopathy. LABORATORY VALUES: As Noted RADIOLOGIC STUDIES: As Noted Assessment IMPRESSION: GERD, history of stomach ulcers and stomach lesion, long-term PPI use PLAN: I have reviewed my findings with the surgeon. Will plan for upper endoscopy. We discussed therisks and benefits of the planned endoscopy. I have informed the patient that complications can occur including failure to complete the endoscopy and perforation. The patient had the opportunity to ask questions concerning the planned endoscopy. My staff has also explained the procedure to the patient in understandable terms and has given the patient printed material concerning the procedure. Thepatient freely consents to surgery. The patient was offered a surgery/procedure at a [facility] facility. I have counseled the patient regarding the risk of exposure to and/or potential harm posed by the COVID-19 virus with having a surgery/procedure at this time versus the risk of delaying the surgery/procedure. It is not possible to know either the risk of delaying the surgery or procedure or chance of getting an infection with perfect accuracy, but a joint decision was made between the patient and myself to proceed at this time with endoscopy. I have explained to the patient the difference between IV conscious sedation and MAC anesthesia - and I have offered either, according to the patient's wishes. I have explained that with IV conscioussedation there is no anesthesia provider available and therefore there is a limitation of the amount of IV medications that can be given and that the patient may wake up in the middle of the procedure and/or experience pain/discomfort during the procedure. Further discussion was done and the patient was given the opportunity to ask questions and all questions were answered. The patient chooses IVconscious sedation-has had both types of sedation in the past and denies issues with either Diagnoses: (Z87.11) History of stomach ulcers (primary encounter diagnosis) (K21.9) Gastroesophageal reflux disease, unspecified whether esophagitis present (Z79.899) Long-term current use of proton pump inhibitor therapy Consultation requested by Dr. Silverio for an opinion regarding GERD and need for surveillance EGD.My final recommendations will be communicated back to the requesting physician by way of shared Medical record or letter to requesting physician via [place] mail. Alina Schwarz PA-C documented in this encounterGrant Hospital05-31-2023 Nurse Note* Maxine Leon RN - 03/06/2023 10:40 AM EDT Arrived in phase II via cart. Left lateral position. Sedated, but responds to verbal stimuli. Colornormal; skin warm and dry. Respirations wnl and unlabored. Abdomen soft and with + bowel sounds in quads X 4. Patient resting comfortably. Family at bedside. Maxine Leon RN documented in this encounterGrant Hospital05-05-2023 NoteHNO ID: [id number] Author: Alina Schwarz PA-C Service: ? Author Type: Physician Reception Specialist Type: Progress Notes Filed: 02/08/2023 12:39 PM Note Text: HISTORY AND PHYSICAL Nadira Wong 1970 REFERRING PHYSICIAN: Trudi Silverio, * CHIEF COMPLAINT: Consult (EGD - GERD) HPI: The patient is a 52 year old female referred for endoscopy. Nadira notes long-term issues with GERD for which she is maintained on a PPI, still with some occasional breakthrough symptoms. 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 Path results showed granuloma and fibrosis, no dysplasia or malignancy. Patient denies any acute change in bowel habits, weight changes, blood in stools, black tarry stools or abdominal pain. Denies family history of colon issues. Up to date on screening colonoscopy-last was in 2015. Patient denies chest pain, shortness of breath or recent hospitalizations. Denies problems with sedation in the past. 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 EGD 12/2011 Dyskinesia of esophagus Dysmenorrhea Esophageal reflux 2001 Neurasthenia hands Palpitations 2006 PAST SURGICAL HISTORY Procedure Laterality Date APPENDECTOMY 02/2001 BX BREAST PERC VACUUM/ROTN 08/19/2009 Right, fibrocystric changes, IDH without atypia CHOLECYSTECTOMY 2001 COLONOSCOPY FLX DX W/COLLJ SPEC WHEN PFRMD 05/23/2001 Colonoscopy COLONOSCOPY FLX DX W/COLLJ SPEC WHEN PFRMD 07/18/2016 Colonoscopy (MAC) EGD ABLATION GEN ANES 07/09/2017 EGD TRANSORAL BIOPSY SINGLE/MULTIPLE 12/20/2011 benign fundic gland polyp ESOPHAGOGASTRODUODENOSCOPY TRANSORAL DIAGNOSTIC 10/2001 EGD ESOPHAGOGASTRODUODENOSCOPY TRANSORAL DIAGNOSTIC 07/08/2007 EGD ESOPHAGOGASTRODUODENOSCOPY TRANSORAL DIAGNOSTIC 07/18/2016 EGD (MAC) PAST SURGICAL HISTORY OF fx of right middle finger PAST SURGICAL HISTORY OF 10/26/2011 Essure procedure REPAIR OF FOOT BONES Left Current Outpatient Medications Medication Sig buPROPion SR (WELLBUTRIN SR) 150 mg 12 hr tablet Take 150 mg by mouth once daily. cholecalciferol (VITAMIN D-3) 5,000 unit tab Take 4,000 Units by mouth once daily. pantoprazole DR (PROTONIX) 40 mg tablet Take 1 tablet by mouth twice daily. melatonin 10 mg tab Take 1 tablet by mouth at bedtime as needed. ascorbic acid(CHEWABLE VITAMIN C 250 MG TAB) Take one tab(s) daily MULTIVITAMIN TABLET PO qd ondansetron (ZOFRAN, HYDROCHLORIDE,) 4 mg tablet Take 1 tablet by mouth every 8 hours as needed. FOR NAUSEA (Patient not taking: Reported on 02/08/2023) acetaminophen (TYLENOL) 650 mg/20.3 mL soln Take 20.3 mL by mouth every 6 hours as needed (headache). (Patient not taking: Reported on 02/08/2023) Norethindrone-Eth Estradiol (NECON , ,) 1-35 mg-mcg per tablet Take 1 pill daily of active pills up to 12 weeks for continuous cycling (Patient not taking: Reported on 02/08/2023) Calcium-Cholecalciferol, D3, 600-125 mg-unit tab Take 1 tablet by mouth twice daily. (Patient not taking: Reported on 02/08/2023) No current facility-administered medications for this visit. ALLERGIES: Biaxin [Clarithromycin] PERSONAL HISTORY: Social History Tobacco Use Smoking status: Never Smokeless tobacco: Never Vaping Use Vaping Use: Never used Substance Use Topics Alcohol use: Yes Alcohol/week: 5.0 standard drinks Types: 2 Glasses of Wine (5oz) per week Comment: occ Drug use: No FAMILY HISTORY: FAMILY HISTORY Problem Relation Age of Onset Lipids Mother Hypertension Father Prostate Cancer Father Diabetes Father other (gangrene) Father aputate bilat legs other (hodgkins lymphoma) Maternal Grandmother Cancer Maternal Grandfather basal cell cancers (skin) Colon Cancer Other none Diabetes Other none Coronary Artery Disease Other none REVIEW OF SYMPTOMS: The review of systems data was entered by the nurse and reviewed by wi Nursing Notes: Vijaya Prabhakar LPN 02/08/2023 9:12 AM Signed REVIEW OF SYSTEMS: General: The patient denies fatigue, denies weight loss, denies weight gain, NOTES feeling hot, and denies feelings of cold. Eyes: The patient denies glaucoma, denies eye injury/surgery, wears glasses or contacts. Ear/Nose/Throat: The patient denies allergies, denies hayfever, denies ear infections, and denies bloody noses. Cardiovascular: The patient denies chest pain, denies heart disease, denies high blood pressure,denies cardiac stent, denies prior heart attack, denies irregular heart beat, denies high cholesterol, denies poor circulation, denies heart failure, other cardiac issues, denies claudication, denies cold feet, denies peripheral arterial stent. Respiratory: The patient denies tuberculosis, denies pneumonia, denies frequent cough, toño (more content not included)...[facility]05-05-2023 History of Present illness Narrative* Alina Schwarz PA-C - 02/08/2023 9:20 AM EDT HISTORY AND PHYSICAL Nadira Wong 1970 REFERRING PHYSICIAN: Trudi Silverio, * CHIEF COMPLAINT: Consult (EGD - GERD) HPI: The patient is a 52 year old female referred for endoscopy. Nadira notes long-term issues with GERD for which she is maintained on a PPI, still with some occasional breakthrough symptoms. She also notes history of gastritis, ulcers and stomach tumor which was resected in 2016. Path results showed granuloma and fibrosis, no dysplasia or malignancy. Patient denies any acute change in bowel habits, weight changes, blood in stools, black tarry stools or abdominal pain. Denies family history of colon issues. Up to date on screening colonoscopy-last was in 2015. Patient denies chest pain, shortness of breath or recent hospitalizations. Denies problems with sedation in the past. 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 EGD 12/2011 Dyskinesia of esophagus Dysmenorrhea Esophageal reflux 2001 Neurasthenia hands Palpitations 2006 PAST SURGICAL HISTORY Procedure Laterality Date APPENDECTOMY 02/2001 BX BREAST PERC VACUUM/ROTN 08/19/2009 Right, fibrocystric changes, IDH without atypia CHOLECYSTECTOMY 2002 COLONOSCOPY FLX DX W/COLLJ SPEC WHEN PFRMD 05/23/2001 Colonoscopy COLONOSCOPY FLX DX W/COLLJ SPEC WHEN PFRMD 07/18/2016 Colonoscopy (MAC) EGD ABLATION GEN ANES 07/09/2017 EGD TRANSORAL BIOPSY SINGLE/MULTIPLE 12/20/2011 benign fundic gland polyp ESOPHAGOGASTRODUODENOSCOPY TRANSORAL DIAGNOSTIC 10/2001 EGD ESOPHAGOGASTRODUODENOSCOPY TRANSORAL DIAGNOSTIC 07/08/2007 EGD ESOPHAGOGASTRODUODENOSCOPY TRANSORAL DIAGNOSTIC 07/18/2016 EGD (MAC) PAST SURGICAL HISTORY OF fx of right middle finger PAST SURGICAL HISTORY OF 10/26/2011 Essure procedure REPAIR OF FOOT BONES Left Current Outpatient Medications Medication Sig buPROPion SR (WELLBUTRIN SR) 150 mg 12 hr tablet Take 150 mg by mouth once daily. cholecalciferol (VITAMIN D-3) 5,000 unit tab Take 4,000 Units by mouth once daily. pantoprazole DR (PROTONIX) 40 mg tablet Take 1 tablet by mouth twice daily. melatonin 10 mg tab Take 1 tablet by mouth at bedtime as needed. ascorbic acid(CHEWABLE VITAMIN C 250 MG TAB) Take one tab(s) daily MULTIVITAMIN TABLET PO qd ondansetron (ZOFRAN, HYDROCHLORIDE,) 4 mg tablet Take 1 tablet by mouth every 8 hours as needed.FOR NAUSEA (Patient not taking: Reported on 02/08/2023) acetaminophen (TYLENOL) 650 mg/20.3 mL soln Take 20.3 mL by mouth every 6 hours as needed (headache). (Patient not taking: Reported on 02/08/2023) Norethindrone-Eth Estradiol (NECON , 28,) 1-35 mg-mcg per tablet Take 1 pill daily of active pills up to 12 weeks for continuous cycling (Patient not taking: Reported on 02/08/2023) Calcium-Cholecalciferol, D3, 600-125 mg-unit tab Take 1 tablet by mouth twice daily. (Patient not taking: Reported on 02/08/2023) No current facility-administered medications for this visit. ALLERGIES: Biaxin [Clarithromycin] PERSONAL HISTORY: Social History Tobacco Use Smoking status: Never Smokeless tobacco: Never Vaping Use Vaping Use: Never used Substance Use Topics Alcohol use: Yes Alcohol/week: 5.0 standard drinks Types: 2 Glasses of Wine (5oz) per week Comment: occ Drug use: No FAMILY HISTORY: FAMILY HISTORY Problem Relation Age of Onset Lipids Mother Hypertension Father Prostate Cancer Father Diabetes Father other (gangrene) Father aputate bilat legs other (hodgkins lymphoma) Maternal Grandmother Cancer Maternal Grandfather basal cell cancers (skin) Colon Cancer Other none Diabetes Other none Coronary Artery Disease Other none REVIEW OF SYMPTOMS: The review of systems data was entered by the nurse and reviewed by wi Nursing Notes: Vijaya Prabhakar LPN 02/08/2023 9:12 AM Signed REVIEW OF SYSTEMS: General: The patient denies fatigue, denies weight loss, denies weight gain, NOTES feeling hot, anddenies feelings of cold. Eyes: The patient denies glaucoma, denies eye injury/surgery, wears glasses or contacts. Ear/Nose/Throat: The patient denies allergies, denies hayfever, denies ear infections, and denies bloody noses. Cardiovascular: The patient denies chest pain, denies heart disease, denies high blood pressure,denies cardiac stent, denies prior heart attack, denies irregular heart beat, denies high cholesterol, denies poor circulation, denies heart failure, other cardiac issues, denies claudication, denies cold feet, denies peripheral arterial stent. Respiratory: The patient denies tuberculosis, denies pneumonia, denies frequent cough, denies pulmonary embolism, denies shortness of breath, and denies coughing up blood. Gastrointestinal: The patient denies difficulty swallowing, NOTES acid reflux, NOTES ulcers, deniesvomiting, denies jaundice/hepatitis, denies gallbladder problems, denies black or tarry stools, NOTES hemorrhoids, denies bleeding from rectum, denies diverticulitis, NOTES constipation, denies diarrhea, denies loss of stool control, and denies hernias. Kidney/Bladder: The patient denies kidney stones, denies urine infections, and denies bloody urine. Skin: The patient denies a history of skin cancer, denies bleeding/changing moles, and denies a history of skin rash. Neurologic: The patient denies a history of epilepsy/convulsions, denies headaches, denies head/spinal injuries, and denies stroke/TIA. Psychiatric: The patient denies psychiatric medications, NOTES depression, and denies voices, denies substance abuse. Endocrine: The patient denies thyroid disorders, denies diabetes, and denies hormonal problems. Hematologic: The patient denies a history of bruising, denies bleeding, and denies anemia, denies blood clots. Infections: The patient denies a history of measles and mumps, denies rheumatic fever, and denies sexually transmitted diseases. Musculoskeletal: The patient denies back pain/injury, denies back problems, denies sciatica, deniesknee/foot trouble, NOTES arthritis, or denies gout. When was patient's last Mammogram screening? 02/2020 Last Colonoscopy: 07/2016 Vijaya Prabhakar LPN I have confirmed and edited as necessary, the PFSH and ROS obtained by others. Alina Schwarz PA-C PHYSICAL EXAMINATION: General: The patient is 52 year old female, well nourished, well hydrated in no acute distress. Thepatient is oriented to time, place, and person. VITALS: Blood pressure 106/80, pulse 107, temperature 36.9 C (98.5 F), height 162.6 cm (5' 4), weight 62.1 kg (136 lb 12.8 oz), last menstrual period 06/26/2017, SpO2 98 %. Body mass index is 23.48 kg/m . HEENT: Normal cephalic, ataumatic, pupils are equally round, sclera are anicteric, mucous membranesare moist, oropharynx is clear. Neck has no masses, asymmetry or lymphadenopathy. Respiratory: Clear to auscultation and percussion. Normal respiratory excursion and pattern. Cardiac: Examination is regular rate and rhythm. Normal S1/S2 Abdominal exam: Soft, nontender, with no palpable masses. No hepatosplenomegaly. No palpable hernias. Extremities: no clubbing, cyanosis or edema. No adenopathy. LABORATORY VALUES: As Noted RADIOLOGIC STUDIES: As Noted Assessment IMPRESSION: GERD, history of stomach ulcers and stomach lesion, long-term PPI use PLAN: I have reviewed my findings with the surgeon. Will plan for upper endoscopy. We discussed therisks and benefits of the planned endoscopy. I have informed the patient that complications can occur including failure to complete the endoscopy and perforation. The patient had the opportunity to ask questions concerning the planned endoscopy. My staff has also explained the procedure to the patient in understandable terms and has given the patient printed material concerning the procedure. Thepatient freely consents to surgery. The patient was offered a surgery/procedure at a [facility] facility. I have counseled the patient regarding the risk of exposure to and/or potential harm posed by the COVID-19 virus with having a surgery/procedure at this time versus the risk of delaying the surgery/procedure. It is not possible to know either the risk of delaying the surgery or procedure or chance of getting an infection with perfect accuracy, but a joint decision was made between the patient and myself to proceed at this time with endoscopy. I have explained to the patient the difference between IV conscious sedation and MAC anesthesia - and I have offered either, according to the patient's wishes. I have explained that with IV conscioussedation there is no anesthesia provider available and therefore there is a limitation of the amount of IV medications that can be given and that the patient may wake up in the middle of the procedure and/or experience pain/discomfort during the procedure. Further discussion was done and the patient was given the opportunity to ask questions and all questions were answered. The patient chooses IVconscious sedation-has had both types of sedation in the past and denies issues with either Diagnoses: (Z87.11) History of stomach ulcers (primary encounter diagnosis) (K21.9) Gastroesophageal reflux disease, unspecified whether esophagitis present (Z79.899) Long-term current use of proton pump inhibitor therapy Consultation requested by Dr. Silverio for an opinion regarding GERD and need for surveillance EGD.My final recommendations will be communicated back to the requesting physician by way of shared Medical record or letter to requesting physician via [place] mail. Alina Schwarz PA-C [facility] Nurse Note* Vijaya Prabhakar LPN - 02/08/2023 9:10 AM EDT REVIEW OF SYSTEMS: General: The patient denies fatigue, denies weight loss, denies weight gain, NOTES feeling hot, anddenies feelings of cold. Eyes: The patient denies glaucoma, denies eye injury/surgery, wears glasses or contacts. Ear/Nose/Throat: The patient denies allergies, denies hayfever, denies ear infections, and denies bloody noses. Cardiovascular: The patient denies chest pain, denies heart disease, denies high blood pressure,denies cardiac stent, denies prior heart attack, denies irregular heart beat, denies high cholesterol, denies poor circulation, denies heart failure, other cardiac issues, denies claudication, denies cold feet, denies peripheral arterial stent. Respiratory: The patient denies tuberculosis, denies pneumonia, denies frequent cough, denies pulmonary embolism, denies shortness of breath, and denies coughing up blood. Gastrointestinal: The patient denies difficulty swallowing, NOTES acid reflux, NOTES ulcers, deniesvomiting, denies jaundice/hepatitis, denies gallbladder problems, denies black or tarry stools, NOTES hemorrhoids, denies bleeding from rectum, denies diverticulitis, NOTES constipation, denies diarrhea, denies loss of stool control, and denies hernias. Kidney/Bladder: The patient denies kidney stones, denies urine infections, and denies bloody urine. Skin: The patient denies a history of skin cancer, denies bleeding/changing moles, and denies a history of skin rash. Neurologic: The patient denies a history of epilepsy/convulsions, denies headaches, denies head/spinal injuries, and denies stroke/TIA. Psychiatric: The patient denies psychiatric medications, NOTES depression, and denies voices, denies substance abuse. Endocrine: The patient denies thyroid disorders, denies diabetes, and denies hormonal problems. Hematologic: The patient denies a history of bruising, denies bleeding, and denies anemia, denies blood clots. Infections: The patient denies a history of measles and mumps, denies rheumatic fever, and denies sexually transmitted diseases. Musculoskeletal: The patient denies back pain/injury, denies back problems, denies sciatica, deniesknee/foot trouble, NOTES arthritis, or denies gout. When was patient's last Mammogram screening? 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 Stereotactic biopsy=fibrocystric changes and intraductal hyperplasia without atypia Acute gastritis without mention of hemorrhage 07/06/2016 Backache, unspecified 11/02/2015 Overview: sees chiroractor, had PT, still some pain Abdominal pain, chronic, epigastric 11/02/2015 Overview: intermittent, better with vicodin documented as of this encounter (statuses as of 03/27/2023) [facility] History of Past illness Narrative* Problem Noted Date Diagnosed Date Resolved Date Post procedure discomfort 07/09/2017 Constipation 07/18/2016 07/18/2016 Flatulence 07/18/2016 07/18/2016 Benign neoplasm of stomach 12/20/2011 0 11/02/2015 Overview: fundic gland polyp on EGD 12/2011 Abnormal mammogram 08/17/2009 6 Overview: 07/07/09 microcalcifications in the outer quadrants of the right breast. Stereotactic biopsy=fibrocystric changes and intraductal hyperplasia without atypia Acute gastritis without mention of hemorrhage 07/08/20 07 07/06/2016 Backache, unspecified 2015 Overview: sees chiroractor, had PT, still some pain Abdominal pain, chronic, epigastric 11/02/2015 Overview: intermittent, better with vicodin documented as of this encounter (statuses as of 08/11/2023) [facility] note* Diagnosis Onset Date Resolution Status Irregular menses acute Osteoarthritis acute [facility] Work Phone: evaluation noteNo assessment information available [facility] Work Phone: evaluation note* Diagnosis History of stomach ulcers- Primary Personal history of other diseases of digestive system Gastroesophageal reflux disease, unspecified whether esophagitis present Long-term current use of proton pump inhibitor therapy documented in this encounter [facility] note* Diagnosis Onset Date Resolution Status Family history of breast can cer gene mutation in first degree relative acute Hot flashes acute Osteoporosis acute Encounter for routine gynecological examination noneactive Dysuria acute [facility] Work Phone: Evaluation note* Diagnosis Long-term current use of proton pump inhibitor therapy- Primary Gastric polyposis Benign neoplasm of stomach documented in this encounter [facility] note* Diagnosis Onset Date Resolution Status Osteoporosis chronic [facility] Work Phone: Evaluation note* Diagnosis Gastroesophageal reflux disease, unspecified whether esophagitis present- Primary Gastroesophageal reflux disease with esophagitis without hemorrhage History of gastric ulcer Personal history of other diseases of digestive system documented in this encounter [facility] for referral (narrative)* Outpatient Procedure (Routine) - Closed Specialty Diagnoses / Procedures Referred By Mily cruz Ref[facility] Diagnoses Gastroesophageal reflux disease with esophagitis without hemorrhage History of gastric ulcer Procedures EGD DIAGNOSTIC ESOPHAGOGASTRODUODENOSC OPY TRANSORAL DIAGNOSTIC Alina Schwarz PA-C [address] [place] [address] [facility] [place] [address] Referral ID Status Reason Start Date Expiration Date V isits Requested Visits Authorized [id number] Closed Auto-Generate d Referral 02/19/2023 02/20/2024 1 [facility]No reason for referral information availableK[facility] Work [facility]: Reason for visit Narrative* Outpatient Procedure (Routine) - Closed Specialty Diagnoses / Procedures Referred By Mily t Referred To [facility] Diagnoses Gastroesophageal reflux disease with esophagitis without hemorrhage History of gastric ulcer Procedures EGD DIAGNOSTIC ESOPHAGOGASTRODUODENOSC OPY TRANSORAL DIAGNOSTIC Alina Schwarz PA-C [address] [place] [address] [facility] [address] [address] Referral ID Status Reason Start Date Expiration Date V isits Requested Visits Authorized [id number] Closed Auto-Generate d Referral 02/19/2023 02/20/2024 1 1 [facility] Chief Complaint and Reason for Visit Chief Complaint COVID TEST Annual ([facility]) SCREENING Reason for Visit Irregular menses Osteoarthritis Chief Complaint SCREENING Annual ([facility] [facility]) CONCERN FOR UTI Reason for Visit Family history of br east cancer gene mutation in first degree relative Hot flashes Osteoporosis Encounter for routine gynecological examination Dysuria Chief Complaint Osteoporosis RECLAST Reason for Visit Osteoporosis Chief Complaint RECLAST facet arthropathy Chief Complaint facet arthropathy DDD LUMBAR. RX HERE Chief Complaint Admit Date SCREENING March 03, 2025 12:36 pm Annual ([facility] [facility]) March 03, 2025 1:06p m Reason for Visit Admit Date Family history of breast can cer gene mutation in first degree relative March 03, 2025 1:06pm Family history of uterine cancer February 1:06pm Hot flashes March 03, 2025 1:06p m Osteoporosis March 03, 2025 1:06p m Routine gynecological examination March 032024 1:06pm Chief Complaint Admit Date SCREENING March 03, 2025 12:36 pm Annual ([employer]) March 03, 2025 1:06p m 1 Y FU May 24, 2025 7: 55am Reason for Visit Admit Date Family history of breast can cer gene mutation in first degree relative March 03, 2025 1:06pm Family history of uterine cancer February 1:06pm Hot flashes March 03, 2025 1:06p m Osteoporosis March 03, 2025 1:06p m Routine gynecological examination March 032024 1:06pm Osteoporosis May 24, 2025 7: 55am Reason for Visit Admit Date Family history of breast can cer gene mutation in first degree relative March 03, 2025 1:06pm Family history of uterine cancer February 1:06pm Hot flashes March 03, 2025 1:06p m Osteoporosis March 03, 2025 1:06p m Routine gynecological examination March 032024 1:06pm Osteoporosis May 24, 2025 7: 55am Dysuria May 24, 2025 7: 55am Family History No Family History Records Found Relationship Condition Age at Onset Recorded Date/T jessie father Diabetes mellitus Unknown Malignant neoplasm Unknown Multiple myeloma Unknown daughter Malignant neoplasm of breast Unknown mother Malignant neoplasm of uterus Unknown Advance Directives No Advanced Directives Records Found Advance Directive Response Recorded Date/ Time Living Will Yes September 18, 10:21am Power of Hourly Shift Yes September 18, 2019 10:21am Advance Directive Response Recorded Date/ Time Living Will Yes September 18, 9:21am Power of Hourly Shift Yes September 18, 2019 9:21am Advance Directive Response Recorded Date/ Time Living Will Yes March 04, 2024 2 :39pm Do you have a Healthcare Power of Hourly Shift? Yes March 04, 2024 2:39pm Summary Purpose Medications Administered Section Inactive Administered Medications - up to 3 most recent administrations Medication Order MAR Action Action Date Dose Rate Site benzocaine 20% 1 [place] (TOPEX) 1 [place], TOPICAL, DIRECTED, Starting on Sat03/06/23 at 1030, Until Sat03/06/23 at 1429, DOSING DIRECTED BY PHYSICIAN FOR PROCEDURAL SEDATION ONLY - Pharmaceutical Waste: Aerosol -, Intraprocedure Given 03/06/2023 10:10 AM EDT 5 Sprays diphenhydrAMINE 12.5-50 mg injection (BENADRYL) 12.5-50 mg, INTRAVENOUS, DIRECTED, Starting on Sat03/06/23 at 1030, Until Sat03/06/23 at 1429, DOSING DIRECTED BY PHYSICIAN FOR PROCEDURAL SEDATION ONLY, Intraprocedure Given 03/06/2023 10:13 AM EDT 50 mg fentaNYL 50 mcg/mL 25-100 mcg injection (SUBLIMAZE) 25-100 mcg, INTRAVENOUS, DIRECTED, Starting on Sat03/06/23 at 1030, Until Sat03/06/23 at 1429, DOSING DIRECTED BY PHYSICIAN FOR PROCEDURAL SEDATION ONLY, Intraprocedure Given 03/06/2023 10:22 AM EDT 50 mcg Given 03/06/2023 10:11 AM EDT 50 mcg lactated ringers iv infusion 30 mL/hr, INTRAVENOUS, CONTINUOUS, Starting on Sat03/06/23 at 0930, Until Sat03/06/23 at 1051, Preprocedure New Bag/Syringe/Bottle 03/06/2023 9:43 AM EDT 30 mL/hr 30 mL/hr midazolam 1-5 mg injection (VERSED) 1-5 mg, INTRAVENOUS, DIRECTED, Starting on Sat03/06/23 at 1030, Until Sat03/06/23 at 1429, DOSING DIRECTED BY PHYSICIAN FOR PROCEDURAL SEDATION ONLY, Intraprocedure Given 03/06/2023 10:22 AM EDT 2 mg Given 03/06/2023 10:19 AM EDT 2 mg Given 03/06/2023 10:15 AM EDT 2 mg Additional Source Comments Goals (unrecognized section and content) Goals may be documented in a n alternate sectionGoals may be documented in an alternate sectionGoals may be documented in an alternate sectionGoals may be documented in an alternate sectionGoals may be documented in an alternate sectionGoals may be documented in an alternate sectionGoals may be documented in an alternate sectionGoals may be documented in an alternate sectionGoals may be documented in an alternate sectionGoals may be documented in an alternate sectionGoals may be documented in an alternate sectionGoals may be documented in an alternate sectionGoals may be documented in an alternate section Source Comments (unrecognize d section and content) In the event this informatio n is protected by the Federal Confidentiality of Alcohol and Drug Abuse Patient Records regulations: The Federal rules restrict any use of the information to criminally investigate or prosecute any alcohol or drug abuse patient.[facility] the event this information is protected by the Federal Confidentiality of Alcohol and Drug Abuse Patient Records regulations: The Federal rules restrict any use of the information to criminally investigate or prosecute any alcohol or drug abuse patient.[facility] the event this information is protected by the Federal Confidentiality of Alcohol and Drug Abuse Patient Records regulations: The Federal rules restrict any use of the information to criminally investigate or prosecute any alcohol or drug abuse patient.[facility] the event this information is protected by the Federal Confidentiality of Alcohol and Drug Abuse Patient Records regulations: The Federal rules restrict any use of the information to criminally investigate or prosecute any alcohol or drug abuse patient.[facility] the event this information is protected by the Federal Confidentiality of Alcohol and Drug Abuse Patient Records regulations: The Federal rules restrict any use of the information to criminally investigate or prosecute any alcohol or drug abuse patient.[facility] Reason for Visit (unrecogniz ed section and content) Reason Comments Consult EGD - GERD Specialty Diagnoses / Procedures Referred By Contac t Referred To Contact General Surgery / GENERAL SURGERY Diagnoses Encounter for follow-up examination after completed treatment for conditions other than malignant neoplasm GERD - EGD CONSULT - PCP REFERRING - IN SCANNED DOC Procedures OFFICE/OUTPATIENT NEW MODERATE MDM 45-59 MINUTES NEW DDI PATIENT Trudi Silverio [address] [place] [address] Alina Schwarz PA-C [address] [place] [address] Referral ID Status Reason Start Date Expiration Date Visits Re quested Visits Authorized [id number] Closed 02/08/2023 10/06/2023 1 1 Reason Comments Patient Question Sore throat Reason Comments Follow Up colonoscopy Specialty Diagnoses / Procedures Referred By Contac t Referred To Contact General Surgery / GENERAL SURGERY Diagnoses Follow-up examination COLONOSCOPY FOLLOW UP Procedures OFFICE/OUTPATIENT ESTABLISHED MOD MDM 30-39 MIN EST DDI PATIENT Ramandeep Sesay MD [address] [place] [address] Alina Schwarz PA-C [address] [place] [address] Referral ID Status Reason Start Date Expiration Date Visits Re quested Visits Authorized [id number] Closed 03/20/2023 10/06/2023 1 1 Care Teams (unrecognized sec tion and content) Team Status: Active Member Role Status Dates Dr. Trudi Silverio MD Primary Care Provider Active Team Status: Inactive Member Role Status Dates Dr. Trudi Silverio MD Primary Care Provider Active Start: March 03, 2025 End: March 03, 2025 Dr. Trudi Silverio MD Attending Provider Active Start: March 03, 2025 End: March 03, 2025 Dr. Trudi Silverio MD Referring Provider Active Start: March 03, 2025 End: March 03, 2025 Team Status: Active Member Role Status Dates Dr. Trudi Silverio MD Primary Care Provider Active Start: March 03, 2025 Dr. Trudi Silverio MD Attending Provider Active Start: March 03, 2025 Dr. Trudi Silverio MD Referring Provider Active Start: March 03, 2025 Team Status: Inactive Member Role Status Dates Dr. Trudi Silverio MD Primary Care Provider Active Start: March 03, 2025 End: March 03, 2025 Dr. Trudi Silverio MD Referring Provider Active Start: March 03, 2025 End: March 03, 2025 Brenda Triana PHYSICIAN OFFICE NURSE, PHYSICIAN OFFICE NURSE-C Attending Provider Active Start: March 03, 2025 End: March 03, 2025 Utility Operator Yarn Relationship Specialty Start Date End Date Trudi Silverio [address] [facility] [address] [place] [address] PCP - General Family Medicine 01/25/23 Team Status: Active Member Role Status Dates Dr. Daniel Jay MD Family Provider Active Dr. Trudi Silverio MD Primary Care Provider Active Team Status: Inactive Member Role Status Dates Dr. Trudi Silverio MD Primary Care Provider, Referr ing Provider Active Brenda Triana PHYSICIAN OFFICE NURSE, PHYSICIAN OFFICE NURSE-C Attending Provider Active Team Status: Inactive Member Role Status Dates Dr. Trudi Silverio MD Primary Care Provider, Referr ing Provider Active Yuri VANESSA, PA Attending Provider Active Team Status: Inactive Member Role Status Dates Dr. Trudi Silverio MD Primary Care Provider Active Brenda Triana PHYSICIAN OFFICE NURSE, PHYSICIAN OFFICE NURSE-C Attending Provider, Referring Provider Active Utility Operator Yarn Relationship Specialty Start Date End Date Trudi Silverio [address] [facility] [address] [place], [place] [id number] PCP - General Family Medicine 01/25/23 Utility Operator Yarn Relationship Specialty Start Date End Date Trudi Silverio [address] [facility] [address] [place], [place] [id number] PCP - General Family Medicine 01/25/23 Team Status: Inactive Member Role Status Dates Dr. Trudi Silverio MD Primary Care Provider, Referr ing Provider Active Dr. Cornelius Gardner MD Attending Provider Active Team Status: Inactive Member Role Status Dates Dr. Trudi Silverio MD Primary Care Provider Active Dr. Cornelius Gardner MD Attending Provider, Referring Provi maya Active Utility Operator Yarn Relationship Specialty Start Date End Date Trudi Silverio MD [address] [facility] [address] [place] [address] PCP - General Family Medicine 01/25/23 Team Status: Inactive Member Role Status Dates Dr. Trudi Silverio MD Primary Care Provider Active Dr. Natan Morton MD Attending Provider, Referring Pr ovider Active Team Status: Inactive Member Role Status Dates Dr. Trudi Silverio MD Primary Care Pr ovider, Attending Provider, Referring Provider Active Team Status: Active Member Role/Relationship Status Dates Dr. Trudi Silverio MD Primary Care Provider Active Team Status: Inactive Member Role/Relationship Status Dates Dr. Trudi Silverio MD Primary Care Provider Active Start: March 03, 2025 End: March 03, 2025 Dr. Trudi Silverio MD Attending Provider Active Start: March 03, 2025 End: March 03, 2025 Dr. Trudi Silverio MD Referring Provider Active Start: March 03, 2025 End: March 03, 2025 Team Status: Inactive Member Role/Relationship Status Dates Dr. Trudi Silverio MD Primary Care Provider Active Start: March 03, 2025 End: March 03, 2025 Dr. Trudi Silverio MD Attending Provider Active Start: March 03, 2025 End: March 03, 2025 Dr. Trudi Silverio MD Referring Provider Active Start: March 03, 2025 End: March 03, 2025 Team Status: Inactive Member Role/Relationship Status Dates Dr. Trudi Silverio MD Primary Care Provider Active Start: March 03, 2025 End: March 03, 2025 Dr. Trudi Silverio MD Referring Provider Active Start: March 03, 2025 End: March 03, 2025 Brenda Triana NP, PHYSICIAN OFFICE NURSE-C Attending Provider Active Start: March 03, 2025 End: March 03, 2025 Team Status: Inactive Member Role/Relationship Status Dates Dr. Trudi Silverio MD Primary Care Provider Active Start: May 24, 2025 End: May 24, 2025 Dr. Trudi Silverio MD Referring Provider Active Start: May 24, 2025 End: May 24, 2025 Dr. Cornelius Gardner MD Attending Provider Active Sta rt: May 24, 2025 End: May 24, 2025 Team Status: Inactive Member Role/Relationship Status Dates Dr. Trudi Silverio MD Primary Care Provider Active Start: May 24, 2025 End: May 24, 2025 Dr. Cornelius Gardner MD Attending Provider Active Sta rt: May 24, 2025 End: May 24, 2025 Dr. Cornelius Gardner MD Referring Provider Active Sta rt: May 24, 2025 End: May 24, 2025 Team Status: Inactive Member Role/Relationship Status Dates Dr. Trudi Silverio MD Primary Care Provider Active Start: May 26, 2025 End: May 26, 2025 Fracnie Martinez NP, PHYSICIAN OFFICE NURSE-C Attending Provider Active S tart: May 26, 2025 End: May 26, 2025 INFORMATION SOURCE (unrecogn ized section and content) DATE CREATED AUTHOR 03/27/2023 [facility] DATE CREATED AUTHOR AUTHOR'S ORGANIZ ATION 06/03/2025 [facility] FOR RECORDS PERTAINING TO PATIENTS WHO ARE OR HAVE BEEN ENROLLED IN A CHEMICAL DEPENDENCY/SUBSTANCEABUSE PROGRAM, SOME INFORMATION MAY BE OMITTED. This clinical summary was aggregated from multiple sources. Caution should be exercised in using it in the provision of clinical care. This summary normalizes information from multiple sources, and as a consequence, information in this document may materially change the coding, format and clinical context of patient data. In addition, data may be omitted in some cases. CLINICAL DECISIONS SHOULD BE BASED ON THE PRIMARY CLINICAL RECORDS. [employer] [facility]. provides no warranty or guarantee of the accuracy or completeness of information in this document.
--- NOTE | 2025-06-30 20:13 | EDS_ITS ---
HPI History of Present Illness Chief Complaint: Allergic Reaction Detail of Chief Complaint: Left-sided tongue swelling. Informant: patient and spouse/S.O. Onset/Context/Timing Onset: Today and Hours Context: Gradual Onset Timing: Continuous Current Severity: Mild Maximum Severity: Moderate Narrative Narrative: 54-year-old female no history of any food allergies any prior allergic reactions today developed left lateral tongue swelling. She is on no JANELL inhibitors or any blood pressure medications. She is on no ARB's. She is never had this happen before. She went to an urgent care they gave her 50 mg IM Benadryl and an EpiPen to her thigh. She said it is much improved but not totally resolved. No wheezing. No rash. Prior similar symptoms: No Recent Illness/Hospitalization: No PFSH PFSH Medical History Post-menopausal Depression Alcohol use Back pain History of ulceration Gastric reflux Non-smoker History of stress test Osteoarthritis Fatigue Home Medications ?Medication ?Instructions ?Recorded ?Last Taken ?Type ascorbic acid (vitamin C) 500 mg 500 mg PO DAILY 12/2803/11/24 History chewable tablet pantoprazole 40 mg granules 20 mg PO QAM 01/25/2102/27 History delayed-release for susp in packet (Protonix) melatonin 5 mg capsule 10 mg PO QHS PRN PRN Insomni a 05/27/23 03/10/24 History multivitamin (One Daily 1 tab PO DAILY 05/27/23 Unkn own History Multivitamin tablet) cholecalciferol (vitamin D3) 125 125 mcg PO QDAY 05/24 Unknown History mcg (5,000 unit) capsule polyethylene glycol 3350 17 4 g PO QDAY PRN 05/24/25 U nknown History gram/dose oral powder (Miralax) zoledronic acid 5 mg/100 mL in 1 ea .Route .once a yea r #100 mL 05/24/25 Unknown Rx mannitol 5 %-water intravenous piggybck prednisone 20 mg tablet 40 mg (2 x 20 mg) PO DAILY 3 days 06/30/25 Unknown Rx #6 tabs Allergy/AdvReac Type Severity Reaction Status Date / Time clarithromycin (From Biaxin) Allergy Hives Verified 06/30/25 19:33 Family History Father Diabetes Cancer prostate Multiple myeloma Daughter Breast cancer Mother Uterine cancer Surgical History History of esophagogastroduodenoscopy (EGD) Hx of colonoscopy History of cholecystectomy History of appendectomy Stomach tumor (benign) Social History household members: spouse Smoking Status: Never smoker alcohol intake: current alcohol intake frequency: a few times a week Alcohol type: wine details: social substance use type: does not use caffeine: Yes frequency: 1-2 times per week seatbelt use: always do you feel safe at home: Yes additional 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 Constitutional Constitutional ED: Denies chills Eyes Eyes: Denies blurry vision ENT ENT ED: Denies ear pain Cardiovascular Cardiovascular: Denies chest pain or palpitations Respiratory/Chest Respiratory/Chest: Denies cough or dyspnea Gastrointestinal Gastrointestinal: Denies abdominal pain Genitourinary Genitourinary ED: Denies dysuria or hematuria Musculoskeletal Musculoskeletal: Denies arthralgias or back pain Integumentary Denies abscess or Abrasions Neurologic Neurologic: Denies headache(s) Psychiatric Psychiatric: Denies anxiety, depression or suicidal ideation Endocrine Endocrinology: Denies cold intolerance or polydipsia Hematologic/Lymphatic Hematologic/Lymphatic: Reports none Allergic/Immunologic Allergic/Immunologic ED: Denies mouth swelling, tongue swelling or urticaria EXAM Physical Exam Narrative Exam Narrative: Well-appearing 54-year-old female sitting upright in bed no acute distress. in the room. Vital signs stable afebrile. Pulse ox 100% on room air no signs of hypoxia. No respiratory distress. No trouble swallowing or breathing. H EENT exam pupils round reactive light. No facial swelling. Tongue left sides mildly swollen. Minimally red. No oral lesions. Posterior pharynx normal. Uvula normal. There is no swelling in the posterior pharynx. She has no drooling. No trouble swallowing. No trouble breathing. Neck nontender. No lymphadenopathy. Trachea midline. Lungs clear to auscultation bilaterally. Heart regular rhythm rate about 95 no murmur. Chest wall ribs nontender. Abdomen soft nontender. Moving all 4 extremities. Nontender no edema. No rashes. No hives. Back nontender no rashes or hives. Neurologically she is awake and alert. Const Vital Signs: 06/30/25 19:33 Temperature 97.4 F L Temperature Source Temporal Pulse Rate 99 Respiratory Rate 20 H Blood Pressure 149/79 H Blood Pressure Mean 102 Pulse Ox 100 Oxygen Delivery Method Room Air Positive well nourished and well developed; Negative for obese, cachectic, co ntractures or unkempt General Appearance ED: well developed and NAD; Negative for unkempt, cachectic, contractures, cyanotic, diaphoretic or pallor Nutritional Appearance: Negative for cachectic or obese HEENT Reports moist mucous membranes HEENT Narrative: Mild swelling left lateral tongue. Mild redness. Posterior pharynx normal. No trouble swallowing or breathing. No drooling or stridor. Eyes PERRL and EOMs intact bilaterally Neck no lymphadenopathy, supple and no JVD Chest Wall inspection of chest normal and palpation of chest normal Resp normal respiratory effort and clear to auscultation bilaterally Cardio regular rate, regular rhythm, S1 normal heart sound, S2 normal heart sound and no murmurs GI normal to inspection, nondistended, normoactive bowel sounds, non-tender, non- distended and no masses Palpation: soft; Negative for tender or guarding Back/Spine no CVA tenderness Extremity normal to inspection General Extremety ED: Negative for edema or tenderness General Extremity: Negative for edema Neuro oriented x3, CN's II-XII intact bilaterally and no sensory deficits noted Sensorium / Orientation: alert Motor Exam: strength 5/5 throughout Psych mental status grossly normal Appearance: Negative for unkempt Skin no rashes or lesions noted, no wounds and skin turgor normal General Skin Exam: elasticity normal; Negative for jaundice or pallor Lesions: No lesion noted Rashes: No rashes noted Trauma: Negative for abrasion Wounds: Negative for wounds noted MDM MDM MDM Narrative Medical decision making narrative: 54-year-old with acute allergic reaction swelling of her left lateral tongue. Was treated at an urgent care prior to arrival got IM Benadryl and an EpiPen. Tongue swelling is much improved. Should be given p.o. prednisone. She will be observed and discharged home as long as she is doing well. She be placed on prednisone 40 mg a day for 3 days if she still has swelling tomorrow. If not she does not need to take any further medications. She can do outpatient follow-up if she wants allergy testing. History & Record Review Discussion w/independent historian: Patient Discharge Plan Triage Chief Complaint: Allergic Reaction ED Provider: Matheus Hartmann Dx/Rx/DC Orders Clinical Impression: Allergic reaction Instructions: ED Angioedema Prescriptions: New prednisone 20 mg tablet 40 mg PO DAILY 3 Days Qty: 6 0RF No Action pantoprazole [Protonix] [address] for susp in packet 20 mg PO QAM melatonin 5 mg capsule 10 mg PO QHS PRN PRN (Reason: Insomnia) multivitamin [One Daily Multivitamin] Tablet 1 tab PO DAILY polyethylene glycol 3350 [Miralax] 17 gram/dose powder 4 g PO QDAY PRN cholecalciferol (vitamin D3) 125 mcg (5,000 unit) capsule 125 mcg PO QDAY zoledronic tbmi-awkmaonc-liams 5 mg/100 mL piggyback 1 ea .Route .once a year Qty: 100 1RF Rx Instructions: ONCE A YEARinfuse over 20 minutes ascorbic acid (vitamin C) 500 MG tablet,chewable 500 mg PO DAILY Primary Care Provider: Kareem Red Referrals: Kareem Red MD [Primary Care Provider, Family Practice] - 3-5 Days if not improving Activity Restrictions/Additional Instructions: Left sided tongue swelling most likely secondary to allergic reaction to what exactly we do not know. Follow-up with your primary care physician not improving. Return to emergency department if is worse. If the tongue is still swollen the more take the prednisone 40 mg a day for the next 3 days till its gone. If is not swollen you will take it at all. If this gets worse throughout the night return. I am likely though with the medications you have already been given. Print Language: Macedonian Disposition Disposition: Home, Self Care
[2025-06-30 21:14] VITALS: BP 122/77; PULSE 87; RESP 18; TEMP 36.4; O2SAT 99
== END 2025-06-30 21:14 | disposition home or self-care (01) ==
PROVIDERS: Emergency Provider Emergency Medicine; PCP Family Medicine; Visit Provider Emergency Medicine
DX: T78.40XA Allergy, unspecified, initial encounter (principal); K21.9 Gastro-esophageal reflux disease without esophagitis; X58.XXXA Exposure to other specified factors, initial encounter
CPT/HCPCS: 99282

== ENCOUNTER 2025-07-05 12:50 | Outpatient (CLI) | payer OTHER, SELFPAY ==
[2025-07-05 13:08] VITALS: BP 125/85; PULSE 84; RESP 16; TEMP 36.6; O2SAT 99; BMI 24.7
[2025-07-05] MEDS: 0.9% NaCl IVPB Med Flush (100mL) 15 ML IV (13:15)
[2025-07-05 13:46] VITALS: BP 131/89; PULSE 78; RESP 16; TEMP 36.4; O2SAT 100
== END 2025-07-05 23:59 | disposition home or self-care (01) ==
LOC: MEDOUTP 12:51
PROVIDERS: PCP Family Medicine; Referring Provider Internal Medicine Endocrinology, Diabetes & Metabolism; Visit Provider Internal Medicine Endocrinology, Diabetes & Metabolism
DX: M81.0 Age-related osteoporosis without current pathological fracture (principal)
CPT/HCPCS: 96365; A4216; J3489

== ENCOUNTER 2025-08-03 16:33 | Outpatient (CLI) | payer OTHER, SELFPAY ==
[2025-08-03 18:28] LABS: FOLATES,SERUM (FOLIC ACID) 15.20 ng/mL (4.60-34.80)
== END 2025-08-03 23:59 | disposition home or self-care (01) ==
LOC: MTLAB 16:34
PROVIDERS: PCP Family Medicine
DX: R22.0 Localized swelling, mass and lump, head (principal)
CPT/HCPCS: 36415; 82746

== ENCOUNTER → 2025-08-11 | Outpatient (CLI) | payer OTHER, SELFPAY ==
--- OUTSIDE RECORDS SUMMARY | 2025-08-11 11:16 | XMS RPT_ITS | CCD ---
Author Organization [facility] Care Team Providers Care Sales Operations Associate Name Role Phone Dr. Daniel Jay Primary Care Provider Dr. Daniel Jay Referring Provider DoctorDr. Lew Attending Provider Kamilah GI ASST, KI-Jose Daniel Gutierrez Attending Provider Trudi Silverio Primary Care Provider Dr. Trudi Silverio Primary Care Provider [phone] Dr. Trudi Silverio Referring Provider [phone] Kamilah GI ASSTKI-Jose Daniel Gutierrez Attending Provider [phone] RASHEEDA Marquez Attending Provider TRUDI SILVERIO Primary Care RAMANDEEP Galo Referring Unavailable ALINA SCHWARZ Attending TRUDI Smith Primary Care RAMANDEEP Galo Attending Unavailable , ALINA Referring Unavailable TRUDI SILVERIO Referring TRUDI Juarez Primary Care UnavailALINA Robison Attending Unavailable Dr. Trudi Silverio Primary Care Provider Dr. Trudi Silverio Referring Provider Dr. Cornelius Gadrner Attending Provider Trudi Silverio MD Primary Care Provider Dr. Trudi Silverio Primary Care Provider Dr. Trudi Silverio Referring Provider Dr. Cornelius Gardner Attending Provider Neda JIM, Dr. Trudi Guaman Primary Care Provider Neda JIM, Dr. Trudi Guaman Attending Provider Neda JIM, Dr. Trudi Guaman Referring Provider Kamilah GI ASST-C, Brenda Attending Provider King DIANDRA, Dr. Shields Attending Provider King DIANDRA, Dr. Shields Referring Provider Juan GI ASST-C, Francie Attending Provider Neda JIM, Dr. Trudi Guaman Primary Care Physician Neda JIM, Dr. Trudi Guaman Referring Provider King DIANDRA, Dr. Shields Attending Physician Juan EMERSON-C, Francie Attending Physician [phone] Shahbaz JIM, Dr. Jarvis Attending Physician Dr. Matheus Hartmann MD Emergency Department Physici an Cornelius Gardner Referring Unavailable Schinner, Trudi E Primary Care Unavailable Cornelius Gardner Attending Unavailable Schinner, Trudi Deniz Referring Unavailable Schinner, Trudi E Primary Care Unavailable Schinner, Trudi E Attending Unavailable Schinner, Trudi E Referring Unavailable Schinner, Trudi E Primary Care Unavailable Schinner, Trudi E Attending Unavailable Schinner, Trudi E Primary Care Unavailable Cornelius Gardner Attending Unavailable Cornelius Gardner Referring Unavailable AbrahamorrBenito maharaj Attending Unavailable AbrahamorrBenito maharaj Referring Unavailable Schinner, Trudi E Primary Care Unavailable Matheus Hartmann Attending Unavailable Schinner, Trudi E Primary Care Unavailable Schinner, Trudi E Primary Care Unavailable Cornelius Gardner Attending Unavailable Schinner, Trudi E Referring Unavailable Schinner, Trudi E Referring Unavailable Kamilah GI ASST, Brenda Attending Unavailable Schinner, Trudi E Primary Care Unavailable Juan GI ASST, Francie Attending Unavailable Schinner, Trudi E Primary Care Unavailable Allergies Allergy Classification Reported Allergen(s) Allergy Type Date of Onset Reaction(s) Facility (20 sources) Clarithromycin; Translations: [CLARITHROMYCIN] Drug Allergy 7 [facility] Work Phone: (1 source) Clarithromycin Drug Allergy [facility] Repository Medications Current Medications Medication Drug Class(es) Dates Sig (Normalized) Sig (Original) ascorbic acid 500 mg chewable tablet (20 sources) Vitamin C Start: 12-28-2016 take 1 tablet by mouth once daily Ascorbic Acid (Vitamin C) 500 MG tablet,chewable Active 500 mg PO DAILY December 28, 2016 12:00am Complies with drug therapy Start: 08-09-2009 End: 03-26-2023 ascorbic acid(CHEWABLE VITAM IN C 250 MG TAB) Take one tab(s) daily 0 08/09/2009 03/26/2023 Discontinued Comment on above: Take one tab(s) samira y Black cohosh root extract (15 sources) Start: 01-31-2022 Black Cohosh Root Extract [...] ug PO daily May 24, 2025 12:00am Complies with drug therapy Start: 05-27-2023 End: 05-24-2025 take 1 capsule [...] Units by mouth once daily. collagen peptide (15 sources) Start: 01-25-2021 collagen pepti de Active [...] Active PO January 25, 2021 12:00am cosamine (15 sources) Start: 01-31-2022 cosamine Activ e PO January 31, 2022 8:14am Start: 01-31-2022 End: 02-06-2023 cosamine Discontinued PO 0 A pril 2021 12:00am February 06, 2023 9:05am Start: 01-31-2022 End: 02-06-2023 cosamine Discontinued PO Apr il 2021 11:00pm February 06, 2023 8:05am Start: 01-31-2022 End: 02-06-2023 cosamine Discontinued PO Jan 12:00am February 06, 2023 9:05am Start: 01-31-2022 cosamine Activ e PO January 31, 2022 12:00am melatonin 5 mg oral capsule (20 sources) Start: 05-27-2023 take 2 capsules by mouth at bedtime as needed Melatonin 5 mg capsule Active 10 mg PO AT BEDTIME NEEDED as needed for Insomnia 0 May 27, 2023 8:07am Complies with drug therapy Start: 05-27-2023 take 10 mg by mouth [...] as needed. Multivitamin (One Daily Multivitamin) tablet (12 sources) Start: 05-27-2023 take 1 tablet by mouth once daily Multivitamin (One Daily Multivitamin) tablet Active 1 {tbl} PO DAILY May 27, 2023 12:00am Complies with drug therapy Start: 05-27-2023 take 1 tablet by telma [...] PO EVERY MORNING January 25, 2021 9:11am Complies with drug therapy Start: 02-03-2018 End: 01-25-2021 take 40 mg [...] telma th twice daily. polyethylene glycol 3350 52906 mg powder for oral solution (5 sources) Osmotic Laxative Start: 05-24-2025 Polyethylene Glycol 3350 (Miralax) 17 gram/dose powder Active 4 g PO daily as needed for constipation May 24, 2025 12:00am Complies with drug therapy Completed/Discontinued Medications Medication Drug Class(es) Dates Sig [...] / HYDROcodone bitartrate 5 mg oral tablet (15 sources) Opioid Agonist Start: 12-28-2016 End: 12-18-2017 [...] 11:00pm December 18, 2017 7:51am Black Cohosh (15 sources) Start: 01-25-2021 End: 01-31-2022 take 20 [...] on above: Take 1 tablet by telma twice daily. celecoxib 200 mg oral capsule (15 sources) Nonsteroidal Anti-inflammatory Drug Start: 01-26-20 End: 02-01-20 take 1 capsule by mouth once daily Celecoxib (Celebrex) 200 mg capsule Discontinued 200 mg PO DAILY January 25, 2021 12:00am January 31, 2022 8:14am citalopram 10 mg oral tablet (15 sources) Serotonin Reuptake Inhibitor Start: 01-15-20 End: 01-20-20 take 1 tablet by mouth once daily Citalopram (Celexa) 10 mg tablet Discontinued 10 mg PO DAILY January 14, 2019 12:00am January 20, 2020 9:14am 84 hr estradiol 0.42120 mg/hr transdermal system (20 sources) Estrogen Start: [...] tablet Discontinued 1 TABLET PO daily 84 April 26, 2020 7:40am [...] mg-mcg tablet Discontinued 1 {tbl} PO daily January 20, 2020 12:00am April 26, 2020 7:40am Start: 01-20-2020 End: 04-26-2020 take 1 tablet by mouth once daily Levonorgestrel-Ethinyl Estrad (Aviane) 0.1-20 mg-mcg tablet Discontinued 1 TABLET PO daily January 19, 2020 11:00pm April 26, 2020 6:40am Start: 01-20-2020 End: 04-26-2020 take 1 tablet by mouth once daily Levonorgestrel-Ethinyl Estrad (Aviane) 0.1-20 mg-mcg tablet Discontinued 1 TABLET PO daily January 20, 2020 12:00am April 26, 2020 7:40am Start: 12-07-2019 End: 01-20-2020 Levonorgestrel-Ethinyl Estra d 0.15-0.03 mg tablet Discontinued 1 {tbl} PO DAILY 84 December 07, 2019 10:31am January 20, 2020 9:35am Start: 12-07-2019 End: 01-20-2020 Levonorgestrel-Ethinyl Estra d 0.15-0.03 mg tablet Discontinued 1 {tbl} PO DAILY December 07, 2019 10:31am January 20, 2020 [...] mcg tablet Discontinued 1 {tbl} PO DAILY January 05, 2019 8:39am January 14, 2019 8:34am Start: 01-05-2019 End: 01-14-2019 take 1 tablet by mouth once daily Norethin-E.Estradiol Triphasic Discontinued 1 TABLET PO DAILY January 05, 2019 7:39am January 14, 2019 7:34am Start: 01-05-2019 End: 01-14-2019 take 1 tablet by mouth once daily Norethin-E.Estradiol Triphasic Discontinued 1 TABLET PO DAILY January 05, 2019 8:39am January 14, 2019 [...] Norethin-E.Estradiol Triphasic Discontinued 1 TABLET PO DAILY December 18, 2017 8:20am February 03, 2018 [...] continuous cycling ibuprofen 600 mg oral tablet (15 sources) Nonsteroidal Anti-inflammatory Drug Start : 09-18 End: 01-19 take 1 tablet by mouth every six hours as needed for pain Ibuprofen 600 MG tablet Discontinued 600 mg PO EVERY 6 HOURS NEEDED as needed for Pain Or Fever September 18, 2019 1:00am January 20, 2020 9:16am lansoprazole 15 mg delayed release oral capsule (15 sources) Proton Pump Inhibitor Start : 12-28 End: 02-03 take 1 capsule by mouth once daily Lansoprazole 15 MG capsule Discontinued 15 mg PO DAILY December 28, 2016 12:00am February 03, 2018 5:32pm levoFLOXacin 750 mg oral tablet (15 sources) Quinolone Antimicrobial Start : 12-28 End: [...] take 1 tablet by mouth once daily Multivitamin,Ft-Nmxj-Uvpgqkxc Discontinu ed 1 TABLET PO DAILY December 27, 2016 11:00pm September 07, 2020 2:00pm Start: 12-28-2016 End: 09-07-2020 take 1 tablet by mouth once daily Multivitamin,Sr-Nlfx-Hktwxmog Discontinu ed 1 TABLET PO DAILY December 28, 2016 12:00am September 07, 2020 3:00pm Multivitamin,Cp-Fhxa-Imitgcj s 1 TABLET tablet (8 sources) Start: 12-28-2016 End: 09-07-2020 take 1 tablet by mouth once daily Multivitamin,Jo-Oaws-Dguirdzl 1 TABLET tablet Discontinued 1 {tbl} PO DAILY December 28, 2016 12:00am September 07, 2020 3:00pm nitrofurantoin, macrocrystal s 25 mg / nitrofurantoin, monohydrate 75 mg oral capsule (13 sources) Nitro furan Antib acter ial Start: [...] oral tablet (5 sources) Serot 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 FOR NAUSEA 30 tablet 1 07/15/2017 03/26/2023 Discontinued Comment on above: Take 1 tablet by telma th every 8 hours as needed. FOR NAUSEA oseltamivir 75 mg oral capsu le (15 sources) Neura minid ase Inhib itor Start: 12-03-2019 End: 12-08-2019 take 1 capsule by mouth twice daily Oseltamivir 75 mg capsule Discontinued 75 mg PO TWICE A DAY 10 5 0 December 03, 2019 1:00am December 07, 2019 1:00am December 08, 2019 1:08am predniSONE 20 mg oral tablet (17 sources) Start: 06-30-2025 End: 07-05-2025 take 2 tablets by mouth once daily Prednisone 20 mg tablet Discontinued 40 mg PO DAILY 6 3 0 June 30, 2025 12:00am July 05, 2025 1:05pm Start: 02-03-2018 End: 12-17-2018 Prednisone 10 mg tablets,dos e pack Discontinued 0 PO per package directions 21 0 February 03, 2018 12:00am December 17, 2018 11:17am PO PER PKG DIR progesterone 100 mg oral capsule (16 sources) Progesterone Start: 02-12-2024 End: 05-24-2025 take 1 capsule by mouth at bedtime Progesterone Micronized (Prometrium) 100 mg capsule Discontinued 100 mg PO AT BEDTIME 90 3 April 13, 2024 6:57am May 24, 2025 8:01am sertraline 100 mg oral tablet (15 sources) Serotonin Reuptake Inhibitor Start: 01-31-2022 End: 02-06-2023 take 1 tablet by mouth once daily Sertraline (Zoloft) 100 mg tablet Discontinued 100 mg PO DAILY January 31, 2022 12:00am February 06, 2023 9:06am sucralfate 1000 mg oral tablet (1 source) Aluminum Complex Start: 03-20-2023 take 1 tablet by mouth at bedtime as needed sucralfate (CARAFATE) 1 gram tablet Take one tablet by mouth before meals and at bedtime as needed 100 tablet 1 03/20/2023 Active Comment on above: Take one tablet by m outh before meals and at bedtime as needed 100 ml zoledronic acid 0.05 mg/ml injection (20 sources) Bisphosphonate Start: 05-28-2023 End: 05-24-2025 Zoledronic Khzm-Uopnpwod-Sgyh r 5 mg/100 mL piggyback Discontinued 1 NMA .Route .once a year 100 1 May 22, 2024 8:10am May 24, 2025 8:33am ONCE A YEARinfuse over 20 minutes Problems Active Problems Problem Classification Problem Date Documented Date Episodic/Chronic Allergic reactions (3 sources) Allergic reaction; Translations: [Allergy, unspecified, initial encounter] Onset: 07-05-2025 06-30-2025 Episodic Anxiety disorders (5 sources) Mental disorder; Translations: [...] 02-08-2023 Episodic Genitourinary symptoms and ill-defined conditions (19 sources) Dysuria; Translations: [Dysuria] Onset: 05-26-2025 02-12-2023 Episodic Menstrual disorders (16 sources) Irregular periods; Translations: [Irregular menstruation, unspecified] Chronic Osteoarthritis (16 sources) Osteoarthritis; Translations: [Unspecified osteoarthritis, unspecified site] Chronic Osteoporosis (20 sources) Osteoporosis; Translations: [Age-related osteoporosis without current pathological fracture] Onset: 07-08-2025 02-06-2023 Chronic Comment on above: reclast reclast/per PCP reclast 2022 Other aftercare (3 sources) Other terminal worker (current) drug therapy; Translations: [Long-term (current) use of other medications] Onset: 02-08-2023 Episodic Other and unspecified benign neoplasm (1 source) Gastric polyposis; Translations: [Polyp of stomach and duodenum] Episodic Other bone disease and musculoskeletal deformities (2 sources) Osteopenia; Translations: [Other specified disorders of bone density and structure, unspecified site] Episodic Other lower respiratory disease (15 sources) Pleuritic pain; Translations: [Pleurodynia] 09-19-2019 Episodic Residual codes; unclassified (20 sources) Family history of malignant neoplasm of uterus; Translations: [Family history of malignant neoplasm of other genital organs] 01-20-2020 Episodic Comment on above: Mother Residual codes; unclassified (20 sources) Family history of breast cancer gene mutation in first degree relative; Translations: [Family history of carrier of genetic disease] 01-14-2019 Episodic Comment on above: Daughter age 27 at d iagnosis/PALB positive. Patient negative. Residual codes; unclassified (18 sources) Flushing; Translations: [Flushing] 02-06-2023 Episodic Comment [...] infection, site not specified] Onset: 06-01-2025 Episodic Past or Other Problems Problem Classification Problem Date Documented Da te Episodic/Chronic Other screening for suspected conditions (not mental disorders or infectious disease) (1 source) Encounter for screening mammogram for malignant neoplasm of breast; Translations: [Encounter for screening mammogram for malignant neoplasm of breast] Onset: 03-09-2025 Episodic Results Test Name Value Interpretation Reference Range Facility Folates,Serum (Folic Acid)on 08-03-2025 FOLATES,SERUM 15.20 ng/mL Normal 4.60-34.80 [facility] Comment on above: Order Comment: N Result Comment: Hemo lysis, Results will be affected, Requires Recollection. Performed By: #### L 506.0200 #### [facility] [address] [place], [address] Emergency Department Summary on 06-30-[address] [facility] Medical Records Department [address] [place] [address] Emergency Department Summary 06/30/25 MR#: [id number] Acct: [id number] Name: NADIRA TEJEDA Rep #: [id number] : 1970 54 From: Matheus Hartmann MD PCP: Dr. Trudi Silverio MD Status:DEP ER Location: ED HPI History of Present Illness Chief Complaint: Allergic Reaction Detail of Chief Complaint: Left-sided tongue swelling. Informant: patient and spouse/S.O. Onset/Context/Timing Onset: Today and Hours Context: Gradual Onset Timing: Continuous Current Severity: Mild Maximum Severity: Moderate Narrative Narrative: 54-year-old female no history of any food allergies any prior allergic reactions today developed left lateral tongue swelling. She is on no JANELL inhibitors or any blood pressure medications. She is on no ARB's. She is never had this happen before. She went to an urgent care they gave her 50 mg IM Benadryl and an EpiPen to her thigh. She said it is much improved but not totally resolved. No wheezing. No rash. Prior similar symptoms: No Recent Illness/Hospitalization: No PFSH PFSH Medical History Post-menopausal Depression Alcohol use Back pain History of ulceration Gastric reflux Non-smoker History of stress test Osteoarthritis Fatigue Home Medications ???Medication ???Instructions ???Recorded ???Last Taken ???Type ascorbic acid (vitamin C) 500 mg 500 mg PO DAILY 12/28/16 03/11/24 History chewable tablet pantoprazole 40 mg granules 20 mg PO QAM 01/25/21 03/11/24 His tory delayed-release for susp in packet (Protonix) melatonin 5 mg capsule 10 mg PO QHS PRN PRN Insomnia 05/0803/10/24 History multivitamin (One Daily 1 tab PO DAILY 05/27/23 Unknown Hi story Multivitamin tablet) cholecalciferol (vitamin D3) 125 125 mcg PO QDAY 05/24/25 Unknown H istory mcg (5,000 unit) capsule polyethylene glycol 3350 17 4 g PO QDAY PRN 05/24/25 Unknown H istory gram/dose oral powder (Miralax) zoledronic acid 5 mg/100 mL in 1 ea .Route .once a year #100 mL 0 05/24/25 Unknown Rx mannitol 5 %-water intravenous piggybck prednisone 20 mg tablet 40 mg (2 x 20 mg) PO DAILY 3 days 06/30/25 Unknown Rx #6 tabs Allergy/AdvReac Type Severity Reaction Status Date / Time clarithromycin (From Biaxin) Allergy Hives Verified 06/30/25 19:33 Family History Father Diabetes Cancer prostate Multiple myeloma Daughter Breast cancer Mother Uterine cancer Surgical History History of esophagogastroduodenoscopy (EGD) Hx of colonoscopy History of cholecystectomy History of appendectomy Stomach tumor (benign) Social History household members: spouse Smoking Status: Never smoker alcohol intake: current alcohol intake frequency: a few times a week Alcohol type: wine details: social substance use type: does not use caffeine: Yes frequency: 1-2 times per week seatbelt use: always do you feel safe at home: Yes additional social history: 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 Larj ROS ROS ED ROS Narrative Denies recent illness. Constitutional Constitutional ED: Denies chills Eyes Eyes: Denies blurry vision ENT ENT ED: Denies ear pain Cardiovascular Cardiovascular: Denies chest pain or palpitations Respiratory/Chest Respiratory/Chest: Denies cough or dyspnea Gastrointestinal Gastrointestinal: Denies abdominal pain Genitourinary Genitourinary ED: Denies dysuria or hematuria Musculoskeletal Musculoskeletal: Denies arthralgias or back pain Integumentary Denies abscess or Abrasions Neurologic Neurologic: Denies headache(s) Psychiatric Psychiatric: Denies anxiety, depression or suicidal ideation Endocrine Endocrinology: Denies cold intolerance or polydipsia Hematologic/Lymphatic Hematologic/Lymphatic: Reports none Allergic/Immunologic Allergic/Immunologic ED: Denies mouth swelling, tongue swelling or urticaria EXAM Physical Exam Narrative Exam Narrative: Well-appearing 54-year-old female sitting upright in bed no acute distress. in the room. Vital signs stable afebrile. Pulse ox 100% on room air no signs of hypoxia. No respiratory distress. No trouble swallowing or breathing. H EENT exam pupils round reactive light. No facial swelling. Tongue left sides mildly swollen. Minimally red. No oral lesions. Posterior pharynx normal. Uvula normal. There is no swelling in the posterior pharynx. She has no drooling. No trouble swallowing. No trouble breathing. Neck nontender. No lymphadenopathy. Trachea midline. Lungs clear to auscultation bilaterally. Heart regular rhythm rat (more content not included)... Normal [facility] Urine Cultureon 05-28-2025 [facility] Proteus mirabilis [place] Count 25,000-50,000 Proteus mirabilis: REACTION Ampicillin Islt ERASMO <=2 Ampicillin+Sulbac Islt ERASMO <=2 S Cefepime Islt ERASMO <=0.12 S cefTRIAXone Islt ERASMO <=0.25 S Ciprofloxacin Islt ERASMO <=0.06 S Gentamicin Islt ERASMO 4 I levoFLOXacin Islt ERASMO <=0.12 S Meropenem Islt ERASMO <=0.25 S Nitrofurantoin Islt ERASMO R Pip+Tazo Islt ERASMO <=4 S TMP SMX Islt ERASMO <=20 S Normal [facility] Comment on above: Performed By: #### M [id number] #### [facility] [address] [place], [place], [address] Urine cultureOrdered By: Katie Martinez on 05-26-2025 Bacteria identified Cx Nom (U) Proteus mirabilis Abnormal [facility] Urine Cultureon 05-25-2025 [facility] PROBABLE PROTEUS SPE CIES Below infection level. Gram negative dasia [place] Count 1000-10,000 Normal [facility] Comment on above: Performed By: #### M 100.2200 #### [facility] [address] [place], [place], [address] Endocrinology Visit Reporton 05-24-2025 Endocrinology Visit Report [facility] [address] [place], [place] [address] OFFICE VISIT Date of Service: 05/24/25 MR#: [id number] Acct: [id number] Name: NADIRA TEJEDA Rep #: [id number] : 1970 Provider: Malena De La Rosa Age/Sex: 54/F Location: [facility] Status: Signed Intake Vital Signs 05/22/24 08:03 03/03/25 13:16 05/24/25 07:56 Height 5 ft 4 in 5 ft 4 in 5 ft 4 in Weight: 150 lb BMI 25.7 BP 135/87 H Blood Pressure Location Lt brachial Position Sitting Pulse 74 Pulse Source Monitor Pulse Oximetry (%) 98 Oxygen Delivery Method room air Intake Visit Reasons: 1 Y FU Chief Complaint: Bone Peer Financial Counselor Required: No Accompanied by: Self Is patient [...] 05/24/25 Rx mannitol 5 %-water intravenous piggybck [facility] Medical History Post-menopausal Depression Alcohol use Back [...] at home: Yes additional social history: 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 Mckay HPI HPI Chief Complaint: Bone Details: NADIRA TEJEDA, is a 54 F who presents to [...] Time include (more content not included)... Normal [facility] Urine cultureOrdered By: Uzair Gardner on 05-24-2025 Bacteria identified Cx Nom (U) Negative Abnormal [facility] Absolute lymphocyte countOrd ered By: Trudi Silverio on 03-03-2025 Lymphocytes Auto (Unsp spec) [#/Vol] 2.05 10*3/uL 0.83-4.51 [facility] Absolute neutrophil countOrd ered By: Trudi Silverio on 03-03-2025 Neutrophils (Bld) [#/Vol] 7.1 10*3/uL 2.0-7.7 [facility] Anion gap in Serum or Plasma Ordered By: Trudi Silverio on 03-03-2025 Anion gap [Moles/Vol] 10 mmol/L 5-15 [facility] Automated blood erythrocyte countOrdered By: Trudi Silverio on 03-03-2025 RBC (Bld) [#/Vol] 4.55 10*6/uL Normal 4.2-5.4 [facility] Comment on above: Performed By: #### L 100.0100, L506.1001, L501.5200, L500.4050 #### [facility] [address] [place], [place], [address] Automated blood hematocrit ( percentage)Ordered By: Trudi Silverio on 03-03-2025 Hematocrit (Bld) [Volume fraction] 40.1 % Normal 37-47 [facility] Comment on above: Performed By: #### L 100.0100, L506.1001, L501.5200, L500.4050 #### [facility] [address] [place], [address] Automated lymphocyte count a s percentage of total leukocytesOrdered By: Trudi Silverio on 03-03-2025 Lymphocytes/100 WBC Auto (Unsp spec) 20.2 % 19-41 [facility] BUN/creatinine ratioOrdered By: Trudi Silverio on 03-03-2025 Urea nitrogen/Creatinine [Mass ratio] 16.8 mg/mg 10-20 [facility] Basophil percentageOrdered B y: Trudi Silverio on 03-03-2025 Basophils/100 WBC (Bld) 0.4 % Normal 0-1 [facility] Comment on above: Performed By: #### L 100.0100, L506.1001, L501.5200, L500.4050 #### [facility] [address] [place], [address] Bilirubin, totalOrdered By: Trudi Silverio on 03-03-2025 Bilirubin [Mass/Vol] 1.22 mg/dL Normal 0.00-1.30 [facility] Comment on above: Performed By: #### L 100.0100, L506.1001, L501.5200, L500.4050 #### [facility] [address] [place], [address] Breast imaging reportOrdered By: Roseline Sheehan on 03-03-2025 Study report [facility] Imaging Services [address] [place], [place] [address] SCRN MAMM (CAD)W/ASTRID BILAT MR#: [id number] Acct: [id number] Name: NADIRA TEJEDA Rep #: [id number] : 1970 F 54 From: Marilee Sheehan MD PCP: Dr. Trudi Silverio MD Status: RE G CLI Study:SCRN MAMM (CAD)W/ASTRID BILAT Date of Exa m: 03/03/25 Exam# [id number] Ordering Dr: Trudi Silverio MD EXAM: SCRN [...] be mailed to the patient. Reading Location: [facility] CC: Dr. Trudi Silverio MD ~ Operations And Intelligence Assistant: Signed [facility] CBC W/Diff, Automatedon - Absolute Lymph 2.05 X10 3/uL Normal 0.83-4.51 [facility] Comment on above: Performed By: #### L 100.0100, L506.1001, L501.5200, L500.4050 #### [facility] [address] [place], [address] Absolute Neut 7.1 X10 3/uL Normal 2.0-7.7 [facility] Comment on above: Performed By: #### L 100.0100, L506.1001, L501.5200, L500.4050 #### [facility] [address] [place], [address] IG% 0.300 Normal 0.0-0.9 [facility] Comment on above: Result Comment: IG% - Immature Granulocytes (promyelocytes, myelocytes and metamyelocytes) > 1% indicates that a LEFT SHIFT is Present. Performed By: #### L 100.0100, L506.1001, L501.5200, L500.4050 #### [facility] [address] [place], [address] Lymphocytes/100 WBC (Bld) 20.2 % Normal 19-41 [facility] Comment on above: Performed By: #### L 100.0100, L506.1001, L501.5200, L500.4050 #### [facility] [address] [place], [address] Nucleated RBC (Bld) [#/Vol] 0 10*3/uL Normal 0-5 [facility] Comment on above: Performed By: #### L 100.0100, L506.1001, L501.5200, L500.4050 #### [facility] [address] [place], [address] RDW SD 42.5 fl Normal 35.1-43.9 [facility] Comment on above: Performed By: #### L 100.0100, L506.1001, L501.5200, L500.4050 #### [facility] [address] [place], [address] Carbon dioxide, total [Moles /volume] in Central venous bloodOrdered By: Trudi Silverio on 03-03-2025 CO2 [Moles/Vol] 26.6 mmol/L Normal 21.0-32.0 [facility] Comment on above: Performed By: #### L 100.0100, L506.1001, L501.5200, L500.4050 #### [facility] [address] [place], [address] Chloride assayOrdered By: Anusha Silverio on 03-03-2025 Chloride [Moles/Vol] 104 mmol/L Normal 98-108 [facility] Comment on above: Performed By: #### L 100.0100, L506.1001, L501.5200, L500.4050 #### [facility] [address] [place], [address] Comprehensive Metabolic Prof ilon 03-03-2025 ALK PHOS 65 U/L Normal 35-104 [facility] Comment on above: Performed By: #### L 100.0100, L506.1001, L501.5200, L500.4050 #### [facility] [address] [place], [address] BUN/CRE 16.8 RATIO Normal 10-20 [facility] Comment on above: Performed By: #### L 100.0100, L506.1001, L501.5200, L500.4050 #### [facility] [address] [place], [address] GAP 10 Normal 5-15 [facility] Comment on above: Performed By: #### L 100.0100, L506.1001, L501.5200, L500.4050 #### [facility] [address] [place], [address] Potassium [Moles/Vol] 4.4 mmol/L Normal 3.3-5.1 [facility] Comment on above: Performed By: #### L 100.0100, L506.1001, L501.5200, L500.4050 #### [facility] [address] [place], [address] T PROT 7.1 g/dL Normal 5.9-8.4 [facility] Comment on above: Performed By: #### L 100.0100, L506.1001, L501.5200, L500.4050 #### [facility] [address] [place], [address] Comprehensive Metabolic Prof ilOrdered By: Trudi Silverio on 03-03-2025 AST [Catalytic activity/Vol] 24 U/L Normal <=31 [facility] Comment on above: Performed By: #### L 100.0100, L506.1001, L501.5200, L500.4050 #### [facility] [address] [place], [address] Eosinophil percentageOrdered By: Trudi Silverio on 03-03-2025 Eosinophils/100 WBC (Bld) 3.2 % Normal 0-5 [facility] Comment on above: Performed By: #### L 100.0100, L506.1001, L501.5200, L500.4050 #### [facility] [address] [place], [address] Erythrocyte distribution wid th ratioOrdered By: Trudi Silverio on 03-03-2025 Erythrocyte distribution width (RBC) [Ratio] 13.1 % Normal 11.6-14.6 [facility] Comment on above: Performed By: #### L 100.0100, L506.1001, L501.5200, L500.4050 #### [facility] [address] [place], [address] Erythrocyte distribution wid th standard deviationOrdered By: Trudi Silverio on 03-03-2025 Erythrocyte distribution width (RBC) [Ratio] 42.5 fl 35.1-43.9 [facility] Glomerular filtration rate ( GFR) estimation/1.73 sq m using serum, plasma, or whole bOrdered By: Trudi Silverio on 03-03-2025 GFR/1.73 sq M.predicted among non-blacks MDRD (S/P/Bld) [Vol rate/Area] 104 mL/min/{1.73_m2} Normal >60 [facility] Comment on above: mL/min/1.73m2 CKD-EP I Creatinine Equation (2020) Result Comment: mL/m in/1.73m2 CKD-EPI Creatinine Equation (2020) Performed By: #### L 100.0100, L506.1001, L501.5200, L500.4050 #### [facility] [address] [place], [address] Hemoglobin measurementOrdere d By: Trudi Silverio on 03-03-2025 Hemoglobin (Bld) [Mass/Vol] 13.2 g/dL Normal 12.0-15.0 [facility] Comment on above: Performed By: #### L 100.0100, L506.1001, L501.5200, L500.4050 #### [facility] [address] [place], [address] Immature granulocytes/100 WB C Auto (Bld)Ordered By: Trudi Silverio on 03-03-2025 Immature granulocytes/100 WBC (Bld) 0.300 % 0.0-0.9 [facility] Comment on above: IG% - Immature Granu locytes (promyelocytes, myelocytes and metamyelocytes) > 1% indicates that a LEFT SHIFT is Present. MCV (mean corpuscular volume ) determinationOrdered By: Trudi Silverio on 03-03-2025 MCV (RBC) [Entitic vol] 88.1 fL Normal 81-99 [facility] Comment on above: Performed By: #### L 100.0100, L506.1001, L501.5200, L500.4050 #### [facility] [address] [place], [address] Magnesiumon 03-03-2025 Magnesium [Mass/Vol] 1.8 mg/dL Normal 1.5-2.2 [facility] Comment on above: Performed By: #### L 100.0100, L506.1001, L501.5200, L500.4050 #### [facility] [address], [address] Magnesium measurement (mass/ volume)Ordered By: Trudi Silverio on 03-03-2025 Magnesium (Unsp spec) [Mass/Vol] 1.8 mg/dL 1.5-2.2 [facility] Mean corpuscular hemoglobin (MCH) determinationOrdered By: Trudi Silverio on 03-03-2025 MCH (RBC) [Entitic mass] 29.0 pg Normal 27.0-32.0 [facility] Comment on above: Performed By: #### L 100.0100, L506.1001, L501.5200, L500.4050 #### [facility] [address] [facility] [place], [place], [id number] Mean corpuscular hemoglobin concentration (MCHC) determinationOrdered By: Trudi Silverio on 03-03-2025 MCHC (RBC) [Mass/Vol] 32.9 g/dL Normal 32-36 [facility] Comment on above: Performed By: #### L 100.0100, L506.1001, L501.5200, L500.4050 #### [facility] [address] [place], [address] Mean platelet volume determi nationOrdered By: Trudi Silverio on 03-03-2025 Platelet mean volume (Bld) [Entitic vol] 10.4 fL Normal 6.2-12.0 [facility] Comment on above: Performed By: #### L 100.0100, L506.1001, L501.5200, L500.4050 #### [facility] [address] [place], [address] Monocyte percentageOrdered B y: Trudi Silverio on 03-03-2025 Monocytes/100 WBC (Bld) 5.6 % Normal 0-10 [facility] Comment on above: Performed By: #### L 100.0100, L506.1001, L501.5200, L500.4050 #### [facility] [address] [place], [address] Neutrophil percentageOrdered By: Trudi Silverio on 03-03-2025 Neutrophils/100 WBC (Bld) 70.3 % High 47-70 [facility] Comment on above: Performed By: #### L 100.0100, L506.1001, L501.5200, L500.4050 #### [facility] [address] [place], [address] Nucleated red blood cell per centageOrdered By: Trudi Silverio on 03-03-2025 Nucleated RBC/100 WBC (Bld) [Ratio] 0 % 0-5 [facility] Bagman/Woman Office Visit Reporton 03-03-2025 Bagman/Woman Office Visit Report [facility] [address], [address] [place] [address] OFFICE VISIT Date of Service: 03/03/25 MR#: [id number] Acct: [id number] Name: NADIRA TEJEDA Rep #: [id number] : 1970 Provider: KERRY perez Age/Sex: 54/F Location: [facility] Status: Signed Intake Vital Signs 07/03/24 08:55 03/03/25 13:08 03/03/25 13:16 Height 5 ft 4 in 5 ft 4 in 5 ft 4 in Weight: 140 lb 8 oz BMI 24.1 BP 130/72 H Intake Visit 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 Mckay History 3 Elective abortions Hx Para 2 Spontaneous abortions Hx # Term Pregnancies Ectopic pregnancies Hx # Pregnancies Multiple births # of living children Past Pregnancies Del. 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 Normal [facility] Platelet countOrdered By: Anusha Silverio on 03-03-2025 Platelets (Bld) [#/Vol] 591 10*3/uL High 150-450 [facility] Comment on above: Performed By: #### L 100.0100, L506.1001, L501.5200, L500.4050 #### [facility] [address] [place], [address] Potassium measurement (mass/ volume)Ordered By: Trudi Silverio on 03-03-2025 Potassium (Unsp spec) [Mass/Vol] 4.4 mmol/L 3.3-5.1 [facility] SCRN MAMM (CAD)W/ASTRID BILATo n 03-03-2025 SCRN MAMM (CAD)W/ASTRID BILAT [facility] Imaging Services [address] [place] [address] SCRN MAMM (CAD)W/ASTRID BILAT MR#: [id number] Acct: [id number] Name: NADIRA TEJEDA Rep #: [id number] : 1970 F 54 From: Roseline Sheehan MD PCP: Dr. Trudi Silverio MD Status: REG CLI Study: SCRN MAMM (CAD)W/ASTRID BILAT Date of Exam: 02/05 05/31 Exam# [id number] Ordering Dr: Trudi Silverio MD EXAM: SCRN [...] be mailed to the patient. Reading Location: [facility] CC: Dr. Trudi Silverio MD Operations And Intelligence Assistant: Signed Normal [facility] Serum creatinine measurement (mass/volume)Ordered By: Trudi Silverio on 03-03-2025 Creatinine [Mass/Vol] 0.67 mg/dL Low 0.70-1.20 [facility] Comment on above: Performed By: #### L 100.0100, L506.1001, L501.5200, L500.4050 #### [facility] [address] [place], [address] Serum globulin measurementOr dered By: Trudi Silverio on 03-03-2025 Globulin (S) [Mass/Vol] 2.5 g/dL Normal 2.2-4.2 [facility] Comment on above: Performed By: #### L 100.0100, L506.1001, L501.5200, L500.4050 #### [facility] [address] [place], [address] Serum glucose measurement (m ass/volume)Ordered By: Trudi Silverio on 03-03-2025 Glucose [Mass/Vol] 83 mg/dL Normal 70-99 [facility] Comment on above: Performed By: #### L 100.0100, L506.1001, L501.5200, L500.4050 #### [facility] [address] [place], [address] Serum or plasma alanine rodríguez otransferase (ALT) measurementOrdered By: Trudi Silverio on 03-03-2025 ALT [Catalytic activity/Vol] 16 U/L Normal <=34 [facility] Comment on above: Performed By: #### L 100.0100, L506.1001, L501.5200, L500.4050 #### [facility] [address] [place], [address] Serum or plasma albumin zahraa urement (mass/volume)Ordered By: Trudi Silverio on 03-03-2025 Albumin [Mass/Vol] 4.5 g/dL Normal 3.5-5.0 [facility] Comment on above: Performed By: #### L 100.0100, L506.1001, L501.5200, L500.4050 #### [facility] [address] [place], [address] Serum or plasma albumin/glob ulin mass ratioOrdered By: Trudi Silverio on 03-03-2025 Albumin/Globulin [Mass ratio] 1.8 {ratio} Normal 0.9-2.4 [facility] Comment on above: Performed By: #### L 100.0100, L506.1001, L501.5200, L500.4050 #### [facility] [address] [place], [address] Serum or plasma alkaline rosalino sphatase measurementOrdered By: Trudi Silverio on 03-03-2025 ALP [Catalytic activity/Vol] 65 U/L 35-104 [facility] Serum or plasma calcium zahraa urement (mass/volume)Ordered By: Trudi Silverio on 03-03-2025 Calcium [Mass/Vol] 9.8 mg/dL Normal 7.6-11.0 [facility] Comment on above: Performed By: #### L 100.0100, L506.1001, L501.5200, L500.4050 #### [facility] [address] [place], [address] Serum or plasma urea nitroge n measurement (mass/volume)Ordered By: Trudi Silverio on 03-03-2025 Urea nitrogen [Mass/Vol] 11 mg/dL Normal 4-19 [facility] Comment on above: Performed By: #### L 100.0100, L506.1001, L501.5200, L500.4050 #### [facility] [address] [place], [address] Sodium levelOrdered By: Trudi Silverio on 03-03-2025 Sodium [Moles/Vol] 141 mmol/L Normal 133-145 [facility] Comment on above: Performed By: #### L 100.0100, L506.1001, L501.5200, L500.4050 #### [facility] [address] [place], [address] Total proteinOrdered By: Kaushal Silverio on 03-03-2025 Protein [Mass/Vol] 7.1 g/dL 5.9-8.4 [facility] Vitamin D,25 Hydroxyon 03-03 Vitamin D 25-OH 54.8 ng/mL Normal 30-100 [facility] Comment on above: Result Comment: Gretel min D Status Deficiency: <20 ng/mL (50nmol/L) Insufficiency: 20-30 ng/mL (50-75 nmol/L) Sufficiency: 30-100 ng/mL (75-250 nmol/L) Toxicity: >100 ng/mL (>250 nmol/L) Performed By: #### L 100.0100, L506.1001, L501.5200, L500.4050 ####[facility] [address] [place], [address] White blood cell (WBC) count Ordered By: Trudi Silverio on 03-03-2025 WBC (Bld) [#/Vol] 10.1 10*3/uL Normal 4.4-11.0 [facility] Comment on above: Performed By: #### L 100.0100, L506.1001, L501.5200, L500.4050 #### [facility] [address] [place], [place], [id number] Absolute lymphocyte countOrd ered By: Natan Morton on 09-06-2023 Lymphocytes Auto (Unsp spec) [#/Vol] 2.15 10*3/uL 0.83-4.51 [facility] Basophil percentageOrdered B y: Natan Morton on 09-06-2023 Basophils/100 WBC (Bld) 0.6 % 0-1 [facility] Eosinophils/100 WBC (Bld) 1.3 % 0-5 [facility] Neutrophils (Bld) [#/Vol] 5.3 10*3/uL 2.0-7.7 [facility] Neutrophils/100 WBC (Bld) 63.9 % 47-70 [facility] WBC (Bld) [#/Vol] 8.2 10*3/uL 4.4-11.0 [facility] Blood erythrocytes count (nu mber/volume)Ordered By: Natan Morton on 09-06-2023 RBC (Bld) [#/Vol] 4.95 10*6/uL 4.2-5.4 [facility] Blood hemoglobin measurement (mass/volume)Ordered By: Natan Morton on 09-06-2023 Hemoglobin (Bld) [Mass/Vol] 13.5 g/dL 12.0-15.0 [facility] Blood lymphocytes/100 leukoc ytesOrdered By: Natan Morton on 09-06-2023 Lymphocytes/100 WBC (Bld) 26.2 % 19-41 [facility] Blood monocytes/100 leukocyt esOrdered By: Natan Morton on 09-06-2023 Monocytes/100 WBC (Bld) 7.8 % 0-10 [facility] Blood platelet mean volumeOr dered By: Natan Morton on 09-06-2023 Platelet mean volume (Bld) [Entitic vol] 9.9 fL 6.2-12.0 [facility] Determination of erythrocyte mean corpuscular volume (MCV)Ordered By: Natan Morton on 09-06-2023 MCV (RBC) [Entitic vol] 86.3 fL 81-99 [facility] Erythrocyte sedimentation ra teOrdered By: Natan Morton on 09-06-2023 ESR (Bld) [Velocity] 3 mm/h 0-30 [facility] Hematocrit Auto (Bld) [Volum e fraction]Ordered By: Natan Morton on 09-06-2023 Hematocrit (Bld) [Volume fraction] 42.7 % 37-47 [facility] - Hematology and Cell countsOrdered By: Natan Morton on 09-06-2023 Erythrocyte distribution width (RBC) [Entitic vol] 41.8 fL 35.1-43.9 [facility] Erythrocyte distribution width (RBC) [Ratio] 13.3 % 11.6-14.6 [facility] Immature granulocytes/100 WBC (Bld) 0.200 % 0.0-0.9 [facility] Comment on above: IG% - Immature Granu locytes (promyelocytes, myelocytes and metamyelocytes) > 1% indicates that a LEFT SHIFT is Present. MCH (RBC) [Entitic mass] 27.3 pg 27.0-32.0 [facility] Nucleated RBC/100 WBC (Bld) [Ratio] 0 % 0-5 [facility] MCHC Auto (RBC) [Mass/Vol]Or dered By: Natan Morton on 09-06-2023 MCHC (RBC) [Mass/Vol] 31.6 g/dL 32-36 [facility] No Panel InformationOrdered By: Natan Morton on 09-06-2023 Anti-Nuclear Antibody Screen Negative Negative [facility] Comment on above: Performed at: [facility] [address] [id number] Director: George Cedillo PhD, Phone: [phone] Platelets bldOrdered By: Fiorella Morton on 09-06-2023 Platelets (Bld) [#/Vol] 637 10*3/uL 150-450 [facility] Serum or plasma C reactive p rotein measurement (mass/volume)Ordered By: Natan Morton on 09-06-2023 CRP [Mass/Vol] mg/L 0.0-3.0 [facility] Comment on above: C-Reactive Protein ( CRP) provides useful information for thediagnosis, therapy and monitoring of inflammatory processesand associated diseases. For the evaluation of Relative Riskfor Cardiovascular Disease, a High Sensitivity CRP (HSCRP)should be ordered. Serum rheumatoid factor dete ctionOrdered By: Natan Morton on 09-06-2023 Rheumatoid factor Ql (S) < 10.0 IU/mL <15 [facility] CNOVon 03-20-2023 CNOV Office Visit (GENSWS ) NADIRA TEJEDA ([id number]) 1970 F Date Time Provider Department 03/20/23 8:00 AM ALINA SCHWARZ During your visit today, we recorded the following information about you: Temperature Pulse Blood pressure 98.4 degrees 100/minute 102/74 Alina Schwarz PA-C 03/26/2023 1:57 PM Signed FOLLOW UP VISIT - ENDOSCOPY NAME: Nadira Tejeda [facility] NO.: [id number] DATE OF SERVICE: 03/20/2023 : 1970 REFERRING [...] which included preparing to see the patient, [id number] patient care, completing clinical documentation, obtaining and/or [...] to your office visit today with the [facility] General Surgeons. INSTRUCTIONS FOR PEPTIC ULCER [...] office imme (more content not included)... Normal [facility] Watson 03-08-2023 KEVYN Telephone (mymission2) NADIRA TEJEDA ([id number]) 1970 F Date Time Provider Department 03/08/23 RAMANDEEP SESAY During your visit today, we recorded the following information about you: Taisha Cantrell LPN 03/08/2023 3:59 PM Signed Patient call in with concerns of having a sore throat and some difficulty swallowing, "feels like I have something in my throat when I swallow". Informed patient that just had a EGD [...] message for Pt to call or check mychart for Dr. Stevens recommendations below. If the Pt continues to have issues after using the oragel, she can call and have her follow up appointment on 03/20 with Alina Schwarz moved to a sooner appointment. Ramandeep Sesay MD [facility] General Surgery Pool 3 hours ago [...] Fully Assessed Reason for Visit: Patient Question [7703] Cmt: Sore throat Prescriptions as of 03/11/2023 [...] as needed. - Norethindrone-Eth Estradiol (NECON , 28,) 1-35 mg-mcg [...] Status:Closed by TAISHA CANTRELL on 03/08/23 Normal [facility] SURGICAL PATHOLOGYon 023 Case Report Surgical Pathology R eport Case: [id number] Authorizing Provider: Ramandeep Sesay MD Collected: 03/06/2023 10:19 AM Ordering Location: Ambulatory Surgery Received: 03/06/2023 02:09 PM Pathologist: Nino Matthews MD, PhD Specimens: A) - ANTRUM (STOMACH) BIOPSY, Antral bx for H/H B) - STOMACH (GASTRIC) POLYP BIOPSY, Multiple gastric polyps C) - ESOPHAGOGASTRIC JUNCTION BIOPSY [facility] FINAL DIAGNOSIS A. Antrum, biopsy: -Mild chronic inactive gastritis and reactive gastropathy in antrum-body transitional mucosa. -Negative for intestinal metaplasia or dysplasia. -No H. pylori on routine stain. B. Stomach, polyps, biopsy: -Multiple fundic gland polyps. C. Esophagogastric junction, biopsy: -Squamous epithelium with no diagnostic abnormality. -Separate fragment of gastric cardia/fundic-type mucosa with mild reactive changes. -Negative for intestinal metaplasia or dysplasia. [facility] Gross Description A. ANTRUM (STOMACH) BIOPSY [...] in one cassette. Gross examination performed at [facility] [place] [address] JT 03/06/2023 10:58 PM [facility] Performing Lab Diagnostic interpret ation performed at [facility] [address] CLIA# [id number] Binding End Stitcher: Masoud Nolan M.D. [facility] EGD DIAGNOSTICon 03-06-2023 [facility] HISTORY PHYSICALon HISTORY PHYSICAL HNO ID: [id number] Author: Ramandeep Sesay MD Service: General Surgery Author Type: Physician Type: HANDP Filed: 03/06/2023 9:21 AM Note Text: HISTORY AND PHYSICAL Nadira Tejeda 1970 REFERRING PHYSICIAN: Trudi Silverio, * CHIEF [...] entered by the nurse and reviewed by ca Nursing Notes: Vijaya Prabhakar LPN 02/08/2023 9:12 [...] arterial s (more content not included)... Normal [facility] NURSING PROGon 03-06-2023 NURSING PROG HNO ID: [id number] Author: Maxine Leon RN Service: ? Author [...] Family at bedside. Maxine Leon RN Normal [facility] SURGICAL PATHOLOGYon 023 CASE REPORT Normal [facility] Comment on above: Order Comment: Speci men Type: TISSUE SPECIMEN Ordering Facility: [facility] Address: [address] [place] [address] Result Comment: Surg [facility] Pathology Report Case: [id number] Authorizing Provider: Ramandeep Sesay MD Collected: 03/06/2023 10:19 AM Ordering Location: Ambulatory Surgery Received: 03/06/2023 02:09 PM Pathologist: Nino Matthews MD, PhD Specimens: A) - ANTRUM (STOMACH) BIOPSY, Antral bx for H/H B) - STOMACH (GASTRIC) POLYP BIOPSY, Multiple gastric polyps C) - ESOPHAGOGASTRIC JUNCTION BIOPSY Performed By: #### S #### [facility] CLIA [id number] [address] [facility] [id number] [address] [place] FINAL DIAGNOSIS Normal [facility] Comment on above: Order Comment: Speci sonia Type: TISSUE SPECIMEN Ordering Facility: [facility] Address: [address] [place] [address] Result Comment: A. A ntrum, biopsy: -Mild [...] or dysplasia. Performed By: #### S #### [facility] CLIA [id number] [address] [place] [address] [place] FINAL PERFORMING LAB Normal [facility] Comment on above: Order Comment: Speci men Type: TISSUE SPECIMEN Ordering Facility: [facility] Address: [address] [place] [address] Result Comment: Diag nostic interpretation performed at [facility], [address] [place] [address] CLIA# [id number] Binding End Stitcher: Masoud Nolan M.D. Performed By: #### S #### [facility] CLIA [id number] [address] [place] [address] [place] GROSS DESCRIPTION Normal [facility] Comment on above: Order Comment: Speci sonia Type: TISSUE SPECIMEN Ordering Facility: [facility] Address: [address] [place] [address] Result Comment: A. A NTRUM (STOMACH) BIOPSY [...] in one cassette. Gross examination performed at [facility], [address] [place] [address] 03/06/2023 10:58 PM Performed By: #### S #### [facility] CLIA [id number] [address] [place] [address] STATES OF [facility] Upper GI endoscopyon 023 Upper GI endoscopy [facility] Gastrointestinal Endoscopy Patient Name: Nadira Tejeda Procedure Date: 03/06/2023 10:01 AM Date of [...] the future Procedure Code(s): --- Professional --- 13312, Esophagogastroduodenoscopy, flexible, transoral; with removal of tumor(s), polyp(s), or other lesion(s) by snare technique 75479, 59, Moderate sedation services provided by the same physician or other qualified health rn care manager performing the diagnostic or therapeutic service that [...] of stomach and duodenum CPT copyright 2020 [employer]. All rights reserved. The codes documented in this re (more content not included)... Normal [facility] CNOVon 02-08-2023 CNOV Office Visit (GENSWS ) NADIRA TEJEDA ([id number]) 1970 F Date Time Provider Department 02/08/23 9:00 AM ALINA SCHWARZ During your visit today, [...] 12:39 PM Signed HISTORY AND PHYSICAL Nadira Tejeda 1970 REFERRING PHYSICIAN: Trudi Silverio, * CHIEF [...] (VITAMIN D-3) (more content not included)... Normal [facility] Laboratory - Chemistry and C hemistry - challengeOrdered By: Brenda Triana on 02-06-2023 Free T4 [Mass/Vol] 0.68 ng/dL 0.76-1.46 [facility] No Panel InformationOrdered By: Brenda Triana on 02-06-2023 Thyroglobulin Antibody < 1.0 IU/mL 0.0-0.9 [facility] Comment on above: Thyroglobulin Antibo dy measured by Chantell CoulterMethodologyPerformed at: - [facility] [address] [id number] Director: George Cedillo PhD, Phone: [phone] Thyroid Stimulating Hormone (TSH) 1.81 uIU/mL 0.358-3.74 [facility] Vitamin D 25-Hydroxy 53.0 ng/mL [facility] Comment on above: Vitamin D 25(OH) Sta tus Range Deficiency <20 ng/mL (50nmol/L) Insufficiency 20 - 30 ng/mL (50 - 75 nmol/L) Sufficiency 30 - 100 ng/mL (75 - 250 nmol/L) Toxicity >100 ng/mL (>250 nmol/L) Serum or plasma thyroperoxid ase antibody assay (units/volume)Ordered By: Brenda Triana on 02-06-2023 TPO Ab Qn 16 [IU]/mL 0-34 [facility] Basophil percentageon 2021 Bilirubin [Mass/Vol] 0.70 mg/dL 0.20-1.00 [facility] Work Phone: Comment on above: For patients on eltr ombopag therapy, use of Dimension [place] TBIL is not recommended. Chloride [Moles/Vol] 104 mmol/L 98-107 [facility] Work Phone: Glucose [Mass/Vol] 78 mg/dL 74-106 [facility] Work Phone: [phone] Potassium [Moles/Vol] 5.1 mmol/L 3.5-5.1 [facility] Work Phone: [phone] Protein [Mass/Vol] 7.5 g/dL 6.4-8.2 [facility] Work Phone: [phone] Sodium [Moles/Vol] 141 mmol/L 136-145 [facility] Work Phone: [phone] Laboratory - Chemistry and C hemistry - challengeon 06-20-2022 ALP [Catalytic activity/Vol] 109 U/L 45-117 [facility] Work Phone: ALT [Catalytic activity/Vol] 20 U/L 13-56 [facility] Work Phone: [phone] CO2 [Moles/Vol] 31.0 mmol/L 21.0-32.0 [facility] Work Phone: Globulin (S) [Mass/Vol] 3.2 g/dL 2.2-4.2 [facility] Work Phone: Urea nitrogen/Creatinine [Mass ratio] 25.2 mg/mg 10-20 [facility] Work Phone: No Panel Informationon 06-20 Estimated GFR (MDRD) Amer 136 mL/min >60 [facility] Work Phone: Comment on above: GFR Calc Estimated GFR (MDRD) Non-Af Amer 113 mL/min >60 [facility] Work Phone: Comment on above: Non- GFR Calc Vitamin D 25-Hydroxy 31.0 ng/mL [facility] Work Phone: Comment on above: Vitamin D 25(OH) Sta tus Range Deficiency <20 ng/mL (50nmol/L) Insufficiency 20 - 30 ng/mL (50 - 75 nmol/L) Sufficiency 30 - 100 ng/mL (75 - 250 nmol/L) Toxicity >100 ng/mL (>250 nmol/L) Serum or plasma albumin zahraa urement (mass/volume)on 06-20-2022 Albumin [Mass/Vol] 4.3 g/dL 3.2-5.0 [facility] Work Phone: Serum or plasma albumin/glob ulin mass ratioon 06-20-2022 Albumin/Globulin [Mass ratio] 1.3 {ratio} 0.9-2.4 [facility] Work Phone: Serum or plasma calcium zahraa urement (mass/volume)on 06-20-2022 Calcium [Mass/Vol] 10.0 mg/dL 8.5-10.1 [facility] Work Phone: Serum or plasma creatinine m easurement (mass/volume)on 06-20-2022 Creatinine [Mass/Vol] 0.60 mg/dL 0.55-1.02 [facility] Work Phone: Comment on above: The validity of the calculated GFR & GFRAA in patients over 70 years has not been determined. Clinical correlation is essential. Serum or plasma urea nitroge n measurement (mass/volume)on 06-20-2022 Urea nitrogen [Mass/Vol] 15 mg/dL 7-18 [facility] Work Phone: Thin prep Papanicolaou smear with manual screeningon 06-20-2022 Thin prep Papanicolaou smear with manual screening 15 U/L 15-37 [facility] Work Phone: Thin prep Papanicolaou smear with manual screening 6 5-15 [facility] Work Phone: No Panel Informationon 01-31 Follicle Stimulating Hormone 79.4 mIU/mL [facility] Work Phone: Comment on above: NORMAL REFERENCE RAN GES FEMALE FOLLICULAR 2.3 - 12.6 mIU/mL MID-CYCLE PEAK 5.2 - 17.5 mIU/mL LUTEAL 1.7 - 12.9 mIU/mL POST-MENOPAUSAL ON MHT 5.9 - 72.8 mIU/mL NOT ON MHT 12.7 - 132.2 mlU/mL MALE 0.7 - 10.8 mIU/mL Serum or plasma estradiol (E 2) measurement (mass/volume)on 01-31-2022 E2 [Mass/Vol] 11.8 pg/mL [facility] Work Phone: Comment on above: NORMAL [...] Ql (Unsp spec) Not detected Not Detect [facility] Work Phone: Comment on above: Normal [...] Time Vital Sign Value Performing Clinician Facility 07-05-2025 13:46-0400 Body temperature 97.6 [degF] Dr. Trudi Silverio MD Work Phone: [facility] 07-05-2025 13:46-0400 Diastolic blood pressure 89 mm[Hg] Dr. Trudi Silverio MD Work Phone: [facility] 07-05-2025 13:46-0400 Heart rate 78 /min Dr. Trudi Silverio MD Work Phone: [facility] 07-05-2025 13:46-0400 Respiratory rate 16 /min Dr. Trudi Silverio MD Work Phone: [facility] 07-05-2025 13:46-0400 SaO2% (BldA) [Mass fraction] 100 % Dr. Trudi Silverio MD Work Phone: [facility] 07-05-2025 13:46-0400 Systolic blood pressure 131 mm[Hg] Dr. Trudi Silverio MD Work Phone: [facility] 07-05-2025 13:08-0400 Body height 162.[address] Trudi Silverio MD Work Phone: [facility] 07-05-2025 13:08-0400 Body mass index (BMI) [Ratio] 24.7 kg/m2 Dr. Trudi Silverio MD Work Phone: 9(636)318-053236 [place] [address] 07-05-2025 13:08-0400 Body weight 65.[address] Trudi Silverio MD Work Phone: 2(093)521-863982 [place] [address] 06-30-2025 21:14-0400 Body temperature 97.6 [degF] Dr. Trudi Silverio MD Work Phone: 1(934)623-135182 [place] [address] 06-30-2025 21:14-0400 Diastolic blood pressure 77 mm[Hg] Dr. Trudi Silverio MD Work Phone: 8(555)869-052982 [place] [address] 06-30-2025 21:14-0400 Heart rate 87 /min Dr. Trudi Silverio MD Work Phone: 0(831)389-436482 [place] [address] 06-30-2025 21:14-0400 Respiratory rate 18 /min Dr. Trudi Silverio MD Work Phone: 3(494)599-057782 [place] [address] 06-30-2025 21:14-0400 SaO2% (BldA) [Mass fraction] 99 % Dr. Trudi Silverio MD Work Phone: 6(324)459-177182 [place] [address] 06-30-2025 21:14-0400 Systolic blood pressure 122 mm[Hg] Dr. Trudi Silverio MD Work Phone: 2(386)210-063782 [place] [address] 06-30-2025 19:33-0400 Body mass index (BMI) [Ratio] 24.8 kg/m2 Dr. Trudi Silverio MD Work Phone: 3(591)975-148882 [place] [address] 06-30-2025 19:33-0400 Body weight 65.[address] Trudi Silverio MD Work Phone: 7(462)877-687982 [place] [address] 05-24-2025 07:56-0400 Body mass index (BMI) [Ratio] 25.7 kg/m2 Dr. Trudi Silverio MD Work Phone: 3(972)557-616482 [place] [address] 05-24-2025 07:56-0400 Body weight 68.[address] Trudi Silverio MD Work Phone: 1(073)979-058682 [place] [address] 05-24-2025 07:56-0400 Diastolic blood pressure 87 mm[Hg] Dr. Trudi Silverio MD Work Phone: [facility] 05-24-2025 07:56-0400 Heart rate 74 /min Dr. Trudi Silverio MD Work Phone: [facility] 05-24-2025 07:56-0400 SaO2% (BldA) [Mass fraction] 98 % Dr. Trudi Silverio MD Work Phone: 1(892)154-764636 [place] [address] 05-24-2025 07:56-0400 Systolic blood pressure 135 mm[Hg] Dr. Trudi Silverio MD Work Phone: 3(732)500-221227 [address] 03-03-2025 13:16-0400 Body height 162.[address] Trudi Silverio MD Work Phone: 8(693)422-269982 [place] [address] 03-03-2025 13:08-0400 Body mass index (BMI) [Ratio] 24.1 kg/m2 Dr. Trudi Silverio MD Work Phone: 1(641)067-721036 [place] [address] 03-03-2025 13:08-0400 Body weight 63.[address] Trudi Silverio MD Work Phone: 4(430)326-926036 [place] [address] 03-03-2025 13:08-0400 Diastolic blood pressure 72 mm[Hg] Dr. Trudi Silverio MD Work Phone: 6(643)894-756736 [place] [address] 03-03-2025 13:08-0400 Systolic blood pressure 130 mm[Hg] Dr. Trudi Silverio MD Work Phone: [facility] 06-28-2023 11:10-0400 Diastolic blood pressure 79 mm[Hg] Dr. Trudi Silverio Work Phone: 9(446)773-741227 [address] 06-28-2023 11:10-0400 Heart rate 78 /min Dr. Trudi Silverio Work Phone: 8(420)758-853736 [place] [address] 06-28-2023 11:10-0400 Respiratory rate 16 /min Dr. Trudi Silverio Work Phone: [facility] 06-28-2023 11:10-0400 SaO2% (BldA) [Mass fraction] 100 % Dr. Trudi Silverio Work Phone: [facility] 06-28-2023 11:10-0400 Systolic blood pressure 129 mm[Hg] Dr. Trudi Silverio Work Phone: [facility] 06-28-2023 10:46-0400 Body height 162.[address] Trudi Silverio Work Phone: [facility] 06-28-2023 10:46-0400 Body mass index (BMI) [Ratio] 24 kg/m2 Dr. Trudi Silverio Work Phone: [facility] 06-28-2023 10:46-0400 Body temperature 97.9 [degF] Dr. Trudi Silverio Work Phone: [facility] 06-28-2023 10:46-0400 Body weight 63.[address] Trudi Silverio Work Phone: [facility] 05-27-2023 08:02-0400 Body mass index (BMI) [Ratio] 23.5 kg/m2 Dr. Trudi Silverio Work Phone: [facility] 05-27-2023 08:02-0400 Body temperature 98 [degF] Dr. Trudi Silverio Work Phone: [facility] 05-27-2023 08:02-0400 Body weight 64.[address] Turdi Silverio Work Phone: [facility] 05-27-2023 08:02-0400 Diastolic blood pressure 76 mm[Hg] Dr. Trudi Silverio Work Phone: [facility] 05-27-2023 08:02-0400 Heart rate 70 /min Dr. Trudi Silverio Work Phone: [facility] 05-27-2023 08:02-0400 Respiratory rate 16 /min Dr. Trudi Silverio Work Phone: [facility] 05-27-2023 08:02-0400 SaO2% (BldA) [Mass fraction] 98 % Dr. Trudi Silverio Work Phone: [facility] 05-27-2023 08:02-0400 Systolic blood pressure 122 mm[Hg] Dr. Trudi Silverio Work Phone: [facility] 03-20-2023 08:10-0400 Body temperature 98.4 [degF] Alina Vesta PA-C Work Phone: [facility] 03-20-2023 08:10-0400 Diastolic blood pressure 74 mm[Hg] Alina Karishma PA-C Work Phone: [facility] 03-20-2023 08:10-0400 Heart rate 100 /min Alina Karishma PA-C Work Phone: [facility] 03-20-2023 08:10-0400 SaO2% (BldA) [Mass fraction] 97 % Alina Karishma PA-C Work Phone: [facility] 03-20-2023 08:10-0400 Systolic blood pressure 102 mm[Hg] Alina Vesta PA-C Work Phone: [facility] 03-06-2023 11:20-0400 Heart rate 84 /min Ramandeep Sesay MD Work Phone: [facility] 03-06-2023 11:20-0400 SaO2% (BldA) [Mass fraction] 98 % Ramandeep Sesay MD Work Phone: [facility] 03-06-2023 11:10-0400 Diastolic blood pressure 76 mm[Hg] Ramandeep Sesay MD Work Phone: [facility] 03-06-2023 11:10-0400 Respiratory rate 16 /min Ramandeep Sesay MD Work Phone: [facility] 03-06-2023 11:10-0400 Systolic blood pressure 120 mm[Hg] Ramandeep Sesay MD Work Phone: [facility] 03-06-2023 09:20-0400 Body temperature 97.81 [degF] Ramandeep Sesay MD Work Phone: [facility] 02-08-2023 09:00-0400 Body height 162.6 cm Alina Vesta PA-C Work Phone: [facility] 02-08-2023 09:00-0400 Body temperature 98.49 [degF] Alina Karishma PA-C Work Phone: [facility] 02-08-2023 09:00-0400 Body weight 62.05 kg Alina Vesta PA-C Work Phone: [facility] 02-08-2023 09:00-0400 Diastolic blood pressure 80 mm[Hg] Alina Karishma PA-C Work Phone: [facility] 02-08-2023 09:00-0400 Heart rate 107 /min Alina Vesta PA-C Work Phone: [facility] 02-08-2023 09:00-0400 SaO2% (BldA) [Mass fraction] 98 % Alina Karishma PA-C Work Phone: [facility] 02-08-2023 09:00-0400 Systolic blood pressure 106 mm[Hg] Alina Karishma PA-C Work Phone: [facility] 02-06-2023 08:59-0400 Body height 165.[address] Trudi Silverio Work Phone: [facility] 02-06-2023 08:59-0400 Body mass index (BMI) [Ratio] 23 kg/m2 Dr. Trudi Silverio Work Phone: [facility] 02-06-2023 08:59-0400 Body weight 62.[address] Trudi Silverio Work Phone: [facility] 02-06-2023 08:59-0400 Diastolic blood pressure 62 mm[Hg] Dr. Trudi Silverio Work Phone: [facility] 02-06-2023 08:59-0400 Systolic blood pressure 118 mm[Hg] Dr. Truid Silverio Work Phone: [facility] 01-31-2022 08:16-0400 Body height 165.[address] Daniel Jay Work Phone: [facility] Work Phone: 01-31-2022 08:16-0400 Body mass index (BMI) [Ratio] 22.3 kg/m2 Dr. Daniel Jay Work Phone: [facility] Work Phone: 01-31-2022 08:16-0400 Body weight 60.[address] Daniel Jay Work Phone: [facility] Work Phone: 01-31-2022 08:16-0400 Diastolic blood pressure 70 mm[Hg] Dr. Daniel Jay Work Phone: [facility] Work Phone: 01-31-2022 08:16-0400 Systolic blood pressure 118 mm[Hg] Dr. Daniel Jay Work Phone: [facility] Work Phone: Encounters Encounter Date Encounter Type Care Provider Facility Start: 08-03-2025 [facility] Facility :[facility] Start: 07-05-2025 End: 07-05-[address] Cornelius Gardner MD -Medical Out Work Phone: Start: 07-05-2025 End: 07-05-[address] Trudi Silverio MD Work Phone: -Medical Out Start: 06-30-2025 End: 06-30-2025 Emergency department patient visit Dr. Matheus Hartmann MD -Emergency Department Work Phone: Start: 05-26-2025 End: 05-26-[address] Trudi Silverio MD Work Phone: -Laboratory Specimen Start: 05-26-2025 End: 05-26-2025 Patient encounter procedure Francie PAYNE -Laboratory Specimen Work Phone: Start: 05-26-2025 End: 05-26-2025 ambulatory Francie Martinez NP Facility:[facility] Start: 05-24-2025 End: 05-24-[address] Cornelius Gardner MD -[facility] Work Phone: Start: 05-24-2025 End: 05-24-[address] Trudi Silverio MD Work Phone: -[facility] Start: 05-24-2025 End: 05-24-2025 ambulatory Cornelius Gardner Facility:[facility] Start: 03-03-2025 End: 03-03-2025 Patient encounter status Brenda Triana GI ASST-C [facility] Start: 03-03-2025 End: 03-03-[address] Trudi Silverio MD Work Phone: [facility] Work Phone: Start: 03-03-2025 End: 03-03-2025 Patient encounter procedure Brenda Triana GI ASST-C -[facility] Work Phone: Start: 03-03-2025 End: 03-03-[address] Trudi Silverio MD Work Phone: [facility] Work Phone: Start: 03-03-2025 End: 03-03-[address] Trudi Silverio MD -[facility] Start: 03-03-2025 End: 03-03-2025 ambulatory Trudi Silverio Facility:[facility] Start: 10-30-2023 End: 10-30-2023 ambulatory [facility] Work Phone: Start: 10-30-2023 End: 10-30-2023 Discharged Recurring [facility]-Physical Therapy Work Phone: Start: 09-20-2023 End: 09-20-2023 ambulatory [facility] Work Phone: Start: 09-20-2023 End: 09-20-2023 Patient encounter procedure [facility] [place] Work Phone: Start: 09-06-2023 End: 09-06-[address] Trudi Silverio Work Phone: [facility] Work Phone: Start: 09-06-2023 End: 09-06-[address] Trudi Silverio Work Phone: [facility] Work Phone: Start: 06-28-2023 End: 06-28-[address] Trudi Silverio Work Phone: [facility] Work Phone: Start: 06-28-2023 End: 06-28-[address] Trudi Silverio Work Phone: [facility]-Medical Out Work Phone: Start: 05-27-2023 End: 05-27-[address] Trudi Silverio Work Phone: [facility] Work Phone: Start: 03-20-2023 End: 03-20-2023 ambulatory TRUDI SILVERIO Facility:[facility] Start: 03-20-2023 End: 03-20-2023 Patient encounter procedure Alina Schwarz PA-C Work Phone: General Surgery Comment on above: Long-term current us e of proton pump inhibitor therapy (Primary Dx); Gastric polyposis Start: 03-11-2023 E-mail encounter fro m caregiver Ramandeep Sesay MD Work Phone: [facility] Start: 03-11-2023 Follow-up encounter Ramandeep Walker MD Work Phone: General Surgery Comment on above: EGD follow up care Start: 03-08-2023 Telephone encounter Ramandeep Walker MD Work Phone: General Surgery Comment on above: Patient Question (So re throat) Start: 03-06-2023 End: 03-06-2023 ambulatory TRUDI SILVERIO Facility:[facility] Start: 03-06-2023 End: 03-06-2023 Subsequent hospital visit by physician Ramandeep Sesay MD Work Phone: Ambulatory Surgery Comment on above: Gastroesophageal ref lux disease with esophagitis without hemorrhage [K21.00] Start: 02-11-2023 End: 02-11-[address] Trudi Silverio Work Phone: [facility] Start: 02-08-2023 End: 02-09-2023 [facility] Start: 02-08-2023 End: 02-08-2023 Patient encounter procedure Alina Schwarz PA-C Work Phone: General Surgery Comment on above: History of stomach u lcers (Primary Dx); Gastroesophageal reflux disease, unspecified whether esophagitis present; Long-term current use of proton pump inhibitor therapy Start: 02-06-2023 End: 02-06-[address] Trudi Silverio Work Phone: [facility] Work Phone: Start: 02-06-2023 End: 02-06-[address] Trudi Silverio Work Phone: [facility] Start: 06-20-2022 End: 06-20-2022 ambulatory [facility] Work Phone: Start: 06-20-2022 End: 06-20-2022 Patient encounter procedure [facility] Start: 01-31-2022 End: 01-31-[address] Daniel Jay Work Phone: [facility] Start: 10-25-2021 End: 10-25-[address] Daniel Jay Work Phone: [facility]-Laboratory, Specimen Procedures Date Procedure Procedure Detail [...] Activity Detail Author Start: 07-18-2026 Colonoscopy COLONOSCOPY [facility] Start: 07-18-2026 COLORECTAL CANCER SCREENING COLORECTAL CANCER SCREENING [facility] Start: 07-05-2025 End: 07-05-2025 Patient encounter procedure Departed Clinical -Medical Out Work Phone: Start: 03-03-2025 Screening mammography SCRN MAMM (CAD)W/ASTRID BILAT [facility] Start: 06-28-2023 Iv infusion therapy/prophylaxis /dx 1st to 1 hr THER/PROPH/DIAG IV INF INIT [facility] Start: 06-07-2023 Covid-19 Vaccine ( season) Covid-19 Vaccine () [facility] Start: 06-07-2023 Influenza vaccination Influenza Vaccine (#1) [facility] Start: 02-08-2023 Shingrix Vaccine (2 of 2) Shingrix Vaccine (2 of 2) [facility] Start: 02-06-2023 Patient referral [facility] Work Phone: Start: 10-07-2022 DEPRESSION ASSESSMENT DEPRESSION ASSESSMENT [facility] Start: 11-07-2021 HPV TESTING HPV TESTING [facility] Start: 11-07-2021 PAP TESTING PAP TESTING [facility] Start: 07-09-2020 DIABETES SCREEN DIABETES SCREEN [facility] Start: 07-09-2020 Diabetes Screening Diabetes Screening [facility] Start: 2020 SHINGRIX VACCINE (1 of 2) SHINGRIX VACCINE (1 of 2) [facility] Start: 07-10-2017 Urine microalbumin profile [facility] Start: 11-09-2016 Lipid 1996 panel - Serum or Plasma Lipid Screening [facility] Start: 11-09-2016 LIPID SCREEN LIPID SCREEN [facility] Start: 11-02-2016 Mammography [facility] Start: 2015 COLOGUARD (FIT-DNA) COLOGUARD (FIT-DNA) [facility] Start: [address] COLONOGRAPHY [facility] Start: 2015 FECAL OCCULT BLOOD FECAL OCCULT BLOOD [facility] Start: 2015 SIGMOIDOSCOPY SIGMOIDOSCOPY [facility] Start: 1988 HEPATITIS C SCREENING HEPATITIS C SCREENING [facility] Start: 1988 HIV SCREENING HIV SCREENING [facility] Start: 1970 HEPATITIS B (1 of 3 - 3-dose series) HEPATITIS B (1 of 3 - 3-dose series) [facility] Start: 1970 Hepatitis B Vaccine (1 of 3 - 3-dose series) Hepatitis B Vaccine (1 of 3 - 3-dose series) [facility] Patient Education ED Angio[facility] Work Phone: Patient referral [facility] Work Phone: Urinalysis complete panel - Urine [facility] Immunizations Immunization Date Immunization Notes Care Provider Fa coleman 07-18-2022 influenza virus vaccine, unspecified formulation Ramandeep Sesay MD Work Phone: [facility] 07-28-2011 influenza virus vaccine, unspecified formulation Alina Vesta PA-C Work Phone: [facility] Work Phone: 08-10-2010 influenza virus vaccine, unspecified formulation Alina Karishma PA-C Work Phone: [facility] 07-09-2009 influenza virus vaccine, unspecified formulation Alina Karishma PA-C Work Phone: [facility] 09-07-2008 influenza virus vaccine, unspecified formulation Alina Vesta PA-C Work Phone: [facility] 07-10-2007 tetanus toxoid, redu shania diphtheria toxoid, and acellular pertussis vaccine, adsorbed Alina Karishma PA-C Work Phone: [facility] Work Phone: 08-15-2006 influenza virus vaccine, live, attenuated, for intranasal use Alina Vesta PA-C Work Phone: [facility] Work Phone: 08-17-2005 influenza virus vaccine, live, attenuated, for intranasal use Alina Karishma PA-C Work Phone: [facility] Work Phone: Payers Date Payer Category Payer Self-pay [id number] 2022 Unknown [id number] 2022 Unknown [employer] PPO [id number] 2022-Present [phone] [address] [place] [address] PPO [id number] 2016 Private Health Insurance [id number] Unknown SELF PAY INSURANCE [id number] Unknown [facility] PACKAGE PLAN [id number] Unknown [id number] Unknown [id number] Unknown [id number] Unknown [id number] Unknown [id number] Unknown [id number] Unknown [id number] Unknown [id number] Unknown [id number] Social History Date Type Detail Facility Start: 01-31-2022 End: 02-11-2023 Tobacco smoking status PRIS Unknown if ever smoked [facility] Start: 09-18-2019 Spouse/ Signif icant Other [facility] Start: 1970 Sex Assigned At Female [facility] Start: 08-02-2011 End: 06-30-2025 Tobacco smoking status NHIS Never smoked tobacco [facility] Start: 08-02-2011 End: 03-06-2023 Tobacco use and exposure Smokeless tobacco non-user [facility] Start: 02-08-2023 End: 03-06-2023 Alcohol intake Current drinker of alcohol (finding) [facility] Start: 02-08-2023 End: 03-06-2023 Alcohol intake [facility] Start: 11-07-2016 Alcohol Comment occ [facility] Start: 1970 Sex Assigned At Not on file [facility] Start: 02-08-2023 End: 03-06-2023 Tobacco use panel [facility] National Score (1-100), lower number is lower risk 35 [facility] Mental Status Date Assessment Result Facility 07-05-2025 Cognitive function [facility] Work Phone: 06-28-2023 Cognitive function Voice/Name [facility] Work Phone: Clinical Notes 07-09-2017 to 06-30-2025 Note Date & Type Note Facility 06-30-2025 Discharge summary [facility] 06-30-2025 Discharge summary Note Date/Time June 30, 2025 9:14pm [facility] Medical Records Department [address] [place] [address] Emergency Department Summary 06/30/25 MR#: [id number] Acct: [id number] Name: NADIRA TEJEDA Rep #:[id number] : 1970 54 From: Matheus Hartmann MD PCP: Dr. Trudi Silverio MD Status:DE P ER Location: ED HPI History of Present Illness Chief Complaint: Allergic Reaction Detail of Chief Complaint: Left-sided tongue swelling. Informant: patient and spouse/S.O. Onset/Context/Timing Onset: Today and Hours Context: Gradual Onset Timing: Continuous Current Severity: Mild Maximum Severity: Moderate Narrative Narrative: 54-year-old female no history of any food allergies any prior allergic reactionstoday developed left lateral tongue swelling. She is on no JANELL inhibitors or any blood pressure medications. She is on no ARB's. She is never had this happen before. She went to an urgent care they gave her 50 mg IM Benadryl and an EpiPen to her thigh. She said it is much improved but not totally resolved. No wheezing. No rash. Prior similar symptoms: No Recent Illness/Hospitalization: No PFSH PFSH Medical History Post-menopausal Depression Alcohol use Back pain History of ulceration Gastric reflux Non-smoker History of stress test Osteoarthritis Fatigue Home Medications ?Medication ?Instructions ?Recorded ?Last Taken ?Type ascorbic acid (vitamin C) 500 mg 500 mg PO DAILY 12/2803/11/24 History chewable tablet pantoprazole 40 mg granules 20 mg PO QAM 01/25/2102/27 History delayed-release for susp in packet (Protonix) melatonin 5 mg capsule 10 mg PO QHS PRN PRN Insomni a 05/27/23 03/10/24 History multivitamin (One Daily 1 tab PO DAILY 05/27/23 Unkn own History Multivitamin tablet) cholecalciferol (vitamin D3) 125 125 mcg PO QDAY 05/24 Unknown History mcg (5,000 unit) capsule polyethylene glycol 3350 17 4 g PO QDAY PRN 05/24/25 U nknown History gram/dose oral powder (Miralax) zoledronic acid 5 mg/100 mL in 1 ea .Route .once a yea r #100 mL 05/24/25 Unknown Rx mannitol 5 %-water intravenous piggybck prednisone 20 mg tablet 40 mg (2 x 20 mg) PO DAILY 3 days 06/30/25 Unknown Rx #6 tabs Allergy/AdvReac Type Severity Reaction Status Date / Time clarithromycin (From Biaxin) Allergy Hives Verified 06/30/25 19:33 Family History Father Diabetes Cancer prostate Multiple myeloma Daughter Breast cancer Mother Uterine cancer Surgical History History of esophagogastroduodenoscopy (EGD) Hx of colonoscopy History of cholecystectomy History of appendectomy Stomach tumor (benign) Social History household members: spouse Smoking Status: Never smoker alcohol intake: current alcohol intake frequency: a few times a week Alcohol type: wine details: social substance use type: does not use caffeine: Yes frequency: 1-2 times per week seatbelt use: always do you feel safe at home: Yes additional social history: Sheng- Marcin Hernandez 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 Constitutional Constitutional ED: Denies chills Eyes Eyes: Denies blurry vision ENT ENT ED: Denies ear pain Cardiovascular Cardiovascular: Denies chest pain or palpitations Respiratory/Chest Respiratory/Chest: Denies cough or dyspnea Gastrointestinal Gastrointestinal: Denies abdominal pain Genitourinary Genitourinary ED: Denies dysuria or hematuria Musculoskeletal Musculoskeletal: Denies arthralgias or back pain Integumentary Denies abscess or Abrasions Neurologic Neurologic: Denies headache(s) Psychiatric Psychiatric: Denies anxiety, depression or suicidal ideation Endocrine Endocrinology: Denies cold intolerance or polydipsia Hematologic/Lymphatic Hematologic/Lymphatic: Reports none Allergic/Immunologic Allergic/Immunologic ED: Denies mouth swelling, tongue swelling or urticaria EXAM Physical Exam Narrative Exam Narrative: Well-appearing 54-year-old female sitting upright in bed no acute distress. in the room. Vital signs stable afebrile. Pulse ox 100% on room air nosigns of hypoxia. No respiratory distress. No trouble swallowing or breathing. H EENT exam pupils round reactive light. No facial swelling. Tongue left sides mildly swollen. Minimally red. No oral lesions. Posterior pharynx normal. Uvula normal. There is no swelling in the posterior pharynx. She has no drooling. No trouble swallowing. No trouble breathing. Neck nontender. Nolymphadenopathy. Trachea midline. Lungs clear to auscultation bilaterally. Heart regular rhythm rate about 95 no murmur. Chest wall ribs nontender. Abdomen soft nontender. Moving all 4 extremities. Nontender no edema. No rashes. No hives. Back nontender no rashes or hives. Neurologically she is awake and alert. Const Vital Signs: 06/30/25 19:33 Temperature 97.4 F L Temperature Source Temporal Pulse Rate 99 Respiratory Rate 20 H Blood Pressure 149/79 H Blood Pressure Mean 102 Pulse Ox 100 Oxygen Delivery Method Room Air Positive well nourished and well developed; Negative for obese, cachectic, contractures or unkempt General Appearance ED: well developed and NAD; Negative for unkempt, cachectic, contractures, cyanotic, diaphoretic or pallor Nutritional Appearance: Negative for cachectic or obese HEENT Reports moist mucous membranes HEENT Narrative: Mild swelling left lateral tongue. Mild redness. Posterior pharynx normal. Notrouble swallowing or breathing. No drooling or stridor. Eyes PERRL and EOMs intact bilaterally Neck no lymphadenopathy, supple and no JVD Chest Wall inspection of chest normal and palpation of chest normal Resp normal respiratory effort and clear to auscultation bilaterally Cardio regular rate, regular rhythm, S1 normal heart sound, S2 normal heart sound and no murmurs GI normal to inspection, nondistended, normoactive bowel sounds, non-tender, non-distended and no masses Palpation: soft; Negative for tender or guarding Back/Spine no CVA tenderness Extremity normal to inspection General Extremety ED: Negative for edema or tenderness General Extremity: Negative for edema Neuro oriented x3, CN's II-XII intact bilaterally and no sensory deficits noted Sensorium / Orientation: alert Motor Exam: strength 5/5 throughout Psych mental status grossly normal Appearance: Negative for unkempt Skin no rashes or lesions noted, no wounds and skin turgor normal General Skin Exam: elasticity normal; Negative for jaundice or pallor Lesions: No lesion noted Rashes: No rashes noted Trauma: Negative for abrasion Wounds: Negative for wounds noted MDM MDM MDM Narrative Medical decision making narrative: 54-year-old with acute allergic reaction swelling of her left lateral tongue. Was treated at an urgent care prior to arrival got IM Benadryl and an EpiPen. Tongue swelling is much improved. Should be given p.o. prednisone. She will beobserved and discharged home as long as she is doing well. She be placed on prednisone 40 mg a day for 3 days if she still has swelling tomorrow. If not she does not need to take any further medications. She can do outpatient follow-up if she wants allergy testing. History & Record Review Discussion w/independent historian: Patient Discharge Plan Triage Chief Complaint: Allergic Reaction ED Provider: Matheus Hartmann Dx/Rx/DC Orders Clinical Impression: Allergic reaction Instructions: ED Angioedema Prescriptions: New prednisone 20 mg tablet 40 mg PO DAILY 3 Days Qty: 6 0RF No Action pantoprazole [Protonix] [address] for susp in packet 20 mg PO QAM melatonin 5 mg capsule 10 mg PO QHS PRN PRN (Reason: Insomnia) multivitamin [One Daily Multivitamin] Tablet 1 tab PO DAILY polyethylene glycol 3350 [Miralax] 17 gram/dose powder 4 g PO QDAY PRN cholecalciferol (vitamin D3) 125 mcg (5,000 unit) capsule 125 mcg PO QDAY zoledronic erdi-rhjepzbq-kdfey 5 mg/100 mL piggyback 1 ea .Route .once a year Qty: 100 1RF Rx Instructions: ONCE A YEARinfuse over 20 minutes ascorbic acid (vitamin C) 500 MG tablet,chewable 500 mg PO DAILY Primary Care Provider: Trudi Silverio Referrals: Trudi Silverio MD [Primary Care Provider, Family Practice] - 3-5 Days if not improving Activity Restrictions/Additional Instructions: Left sided tongue swelling most likely secondary to allergic reaction to what exactly we do not know. Follow-up with your primary care physician not improving. Return to emergency department if is worse. If the tongue is still swollen the more take the prednisone 40 mg a day for the next 3 days till its gone. If is not swollen you will take it at all. If this gets worse throughout the night return. I am likely though with the medications you have already been given. Print Language: Greek Disposition Disposition: Home, Self Care What to do if you have Problems For any increased pain, shortness of breath, bleeding, nausea or vomiting, chestpain, or any unexpected problems, contact your Primary Care Provider. Call [facility] ([phone]) or report to the closest Emergency Room. Call 911 if necessary. 07/01/25 0024 <Electronically signed by Matheus Hartmann MD> Cosigner Signature (if applicable): CC: Dr. Trudi Silverio MD ~ Signed [facility] Work Phone: 1(147) 249-932308-18-2025 Evaluation note* Diagnosis Onset Date Resolution Status Admit Date Osteoporosis chronic May 24, 2025 7:55am Dysuria resolved May 24 025 7:55am [facility] Work Phone: 1(273) 634-522405-28-2025 Evaluation note* Diagnosis Onset Date Resolution Status Admit Date Family history of breast cancer gene mutation in first degree relative acute March 03, 2025 1 :06pm Family history of uterine cancer acute March 03, 2025 1 :06pm Hot flashes acute March 03 1:06pm Osteoporosis chronic March 03 1:06pm Routine gynecological examination noneactive March 03, 2025 1 :06pm [facility] Work Phone: 1(883) 829-256005-28-2025 Evaluation note* Diagnosis Onset Date Resolution Status Admit Date Family history of breast cancer gene mutation in first degree relative acute March 03, 2025 1 :06pm Family history of uterine cancer acute March 03, 2025 1 :06pm Hot flashes acute March 03 1:06pm Osteoporosis chronic March 03 1:06pm Routine gynecological examination noneactive March 03, 2025 1 :06pm Osteoporosis chronic May 24, 2025 7:55am [facility] Work Phone: 1(202) 738-618705-28-2025 Evaluation note* Diagnosis Onset Date Resolution Status [...] May 24, 2025 7:55am Dysuria resolved May 24, 2 025 7:55am [facility] Work Phone: 1(581) 332-743702-12-2024 Discharge summary Author Gary Locke [facility] November 18, 2023 7:39pm Note Date/Time October 30, 2023 9 :43am [facility] Physical Therapy [facility] [address] [place] [address]. [address] [place] [address] / REHABILITATION SERVICES DISCHARGE SUMMARY MR#: [id number] Acct: [id number] Name: NADIRA TEJEDA Rep #: [id number] : 1970 53 From: Cert. KRIS Dumont, OCS Referring Dr.: Dr. Trudi Silverio MD Status: REG RCR Insurance: [facility] PACKAGE PLAN Discharge Summary D/C summary: It has been my pleasure to treat NADIRA TEJEDA referred by Dr. Trudi Silverio MD, with [...] please feel free to call me at [phone]. Thank you for the referral of thispatient. Sincerely, Gary Locke PT, Cert MDT, OCS Balance/Gait/Functional tests Balance/Special Test Scores Oswestry Low Back Score: 6 Improvement % Improvement: 40 <Electronically signed by Gary Locke PT Cert. KRIS, BENNY> 11/18/231938 CC: Dr. Trudi Silverio MD ~ TERE Signed [facility] Work Phone: 1(322) 640-216106-14-2023 NoteHNO ID: [id number] Author: Alina Schwarz PA-C Service: ? Author Type: Physician Continuous Mining Machine [employer]ode Miner Type: Progress Notes Filed: 03/26/2023 1:57 PM Note Text: FOLLOW UP VISIT - ENDOSCOPY NAME: Nadira Contreras [facility] NO.: [id number] DATE OF SERVICE: 03/20/2023 : 1970 REFERRING [...] which included preparing to see the patient, [id number] patient care, completing clinical documentation, obtaining and/or reviewing separately obtained history, counseling and educating the patient/family/caregiver, independently interpreting results (not separately reported), and communicating results to the patient/family/caregiver. [facility] Instructions* Patient Instructions* Alina Schwarz PA-C - 03/20/2023 8:33 AM EDT -Repeat EGD in 3 years for surveillance due to long-term PPI use and fundic gland polyposis -May add carafate as needed The following instructions are important for you related to your office visit today with the [facility] General Surgeons. INSTRUCTIONS FOR PEPTIC ULCER [...] you should contact our office immediately @ [phone] and ask to be transferred to the General Surgery department. documented in this encounterC[facility] History of Present illness Narrative* Alina Schwarz PA-C - 03/20/2023 8:07 AM EDT FOLLOW UP VISIT - ENDOSCOPY NAME: Nadira Tejeda [facility] NO.: [id number] DATE OF SERVICE: 03/20/2023 : 1970 REFERRING [...] which included preparing to see the patient, [id number] patient care, completing clinical documentation, obtaining and/or reviewing separately obtained history, counseling and educating the patient/family/caregiver, independently interpretin g results (not separately reported), and communicating results to the patient/family/caregiver. Alina Schwarz PA-C documented in this encounterC[facility]06-02-2023 Miscellaneous Notes* Telephone Encounter - Taisha Cantrell LPN - 03/08/2023 3:48 PM EDT Patient call in with concerns of having a sore throat and some difficulty swallowing, "feels like Ihave something in my throat when I swallow". Informed patient that just had a EGD [...] understanding. Taisha Cantrell LPN documented in this encounterC[facility]05-31-2023 History and physical note * Ramandeep [...] SIGNATURE: Ramandeep Sesay MD PATIENT NAME: Nadira Tejeda DATE: March 06, 2023 TIME: 9:55 AM Source Note - Ramandeep Sesay MD - 03/06/2023 12:45 PM EDT HISTORY AND PHYSICAL Nadira Tejeda 1970 REFERRING PHYSICIAN: Trudi Silverio, * CHIEF [...] entered by the nurse and reviewed by ca Nursing Notes: Vijaya Prabhakar LPN 02/08/2023 9:12 [...] C (98.5 F), height 162.6 cm (5' 4"), weight 62.1 kg (136 lb 12.8 oz), [...] patient was offered a surgery/procedure at a [facility] facility. I have counseled the patient [...] 12:45 PM EDT HISTORY AND PHYSICAL Nadira Contreras Ileana 1970 REFERRING PHYSICIAN: Trudi Silverio, * CHIEF [...] epigastric intermittent, better with vicodin Backache, unspecified 2000 sees chiroractor, had PT, still some pain [...] entered by the nurse and reviewed by ca Nursing Notes: Vijaya Prabhakar LPN 02/08/2023 9:12 [...] C (98.5 F), height 162.6 cm (5' 4"), weight 62.1 kg (136 lb 12.8 oz), [...] patient was offered a surgery/procedure at a [facility] facility. I have counseled the patient [...] mail. Alina Schwarz PA-C documented in this encounterCleveland [facility]05-31-2023 Nurse Note* Maxine Leon RN - 03/06/2023 10:40 AM EDT Arrived in phase II via cart. Left lateral position. Sedated, but responds to verbal stimuli. Colornormal; skin warm and dry. Respirations wnl and unlabored. Abdomen soft and with + bowel sounds in quads X 4. Patient resting comfortably. Family at bedside. Maxine Leon RN documented in this encounterC[facility]05-05-2023 NoteHNO ID: [id number] Author: Alina Schwarz PA-C Service: ? Author Type: Physician Continuous Mining Machine Lode Miner Type: Progress Notes Filed: 02/08/2023 12:39 PM Note Text: HISTORY AND PHYSICAL Nadira Contreras Ileana 1970 REFERRING PHYSICIAN: Trudi Silverio, * CHIEF [...] entered by the nurse and reviewed by ca Nursing Notes: Vijaya Prabhakar LPN 02/08/2023 9:12 [...] denies frequent cough, toño (more content not included)...[facility]05-05-2023 History of Present illness Narrative* Alina Schwarz PA-C - 02/08/2023 9:20 AM EDT HISTORY AND PHYSICAL Nadira Tejeda 1970 REFERRING PHYSICIAN: Trudi Silverio, * CHIEF [...] entered by the nurse and reviewed by me Nursing Notes: Vijaya Prabhakar LPN 02/08/2023 9:12 [...] C (98.5 F), height 162.6 cm (5' 4"), weight 62.1 kg (136 lb 12.8 oz), [...] patient was offered a surgery/procedure at a [facility] facility. I have counseled the patient [...] mail. Alina Schwarz PA-C documented in this encounterCleveland [facility]05-05-2023 Nurse Note* Vijaya Prabhakar, WAYNE - 02/08/2023 9:10 AM EDT REVIEW OF [...] 07/2016 Vijaya Prabhakar LPN documented in this encounterCleveland [facility]10-03-2017 History of Past illness Narrative* Problem [...] of this encounter (statuses as of 02/08/2023) [facility] History of Past illness Narrative* Problem [...] of hemorrhage 07/06/2016 Backache, unspecified 11/02/2015 Overview: zac manzanoctgregorio, had PT, still some pain Abdominal pain, chronic, epigastric 11/02/2015 Overview: intermittent, better with vicodin documented as of this encounter (statuses as of 03/08/2023) [facility] History of Past illness Narrative* Problem [...] of hemorrhage 07/06/2016 Backache, unspecified 11/02/2015 Overview: zac guzmán, had PT, still some pain Abdominal pain, chronic, epigastric 11/02/2015 Overview: intermittent, better with vicodin documented as of this encounter (statuses as of 03/12/2023) [facility] History of Past illness Narrative* Problem [...] of hemorrhage 07/06/2016 Backache, unspecified 11/02/2015 Overview: zac manzanoctor, had PT, still some pain Abdominal pain, chronic, epigastric 11/02/2015 Overview: intermittent, better with vicodin documented as of this encounter (statuses as of 03/27/2023) [facility] History of Past illness Narrative* Problem [...] 07/08/20 07 07/06/2016 Backache, unspecified 2015 Overview: zac tysonor, had PT, still some pain Abdominal pain, chronic, epigastric 11/02/2015 Overview: intermittent, better with vicodin documented as of this encounter (statuses as of 08/11/2023) [facility]* Diagnosis Onset Date Resolution Status Irregular menses acute Osteoarthritis acute [facility] Work Phone: Evaluation noteNo assessment information available [facility] Work Phone: Evaluation note* Diagnosis History of stomach ulcers- Primary Personal history of other diseases of digestive system Gastroesophageal reflux disease, unspecified whether esophagitis present Long-term current use of proton pump inhibitor therapy documented [facility] this encounter [facility]* Diagnosis Onset Date Resolution Status Family history of breast can cer gene mutation in first degree relative acute Hot flashes acute Osteoporosis acute Encounter for routine gynecological examination noneactive Dysuria acute [facility] Work Phone: Evaluation note* Diagnosis Long-term current use of proton pump inhibitor therapy- Primary Gastric polyposis Benign neoplasm of stomach documented [facility] this encounter [facility]* Diagnosis Onset Date Resolution Status Osteoporosis chronic [facility] Work Phone: Evaluation note* Diagnosis Gastroesophageal reflux disease, unspecified whether esophagitis present- Primary Gastroesophageal reflux disease with esophagitis without hemorrhage History of gastric ulcer Personal history of other diseases of digestive system documented in this encounter [facility] Discharge instructionsAdditional Instructions Left sided tongue swelling most likely secondary to allergic reaction to what exactly we do not know. Follow-up with your primary care physician not improving. Return to emergency department if is worse. If the tongue is still swollen the more take the prednisone 40 mg a day for the next 3 days till its gone. If is not swollen you will take it at all. If this gets worse throughout the night return. I am likely though with the medications you have already been given.[facility] Work Phone: Reason for referral (narrative)* Outpatient Procedure (Routine) - Closed Specialty Diagnoses / Procedures Referred By Mily cruz Referred To Contact [facility] Diagnoses Gastroesophageal reflux disease with esophagitis without hemorrhage History of gastric ulcer Procedures EGD DIAGNOSTIC ESOPHAGOGASTRODUODENOSC OPY TRANSORAL DIAGNOSTIC Alina Schwarz PA-C [address] [place] [address] [facility] [address] [address] Referral ID Status Reason Start Date Expiration Date V isits Requested Visits Authorized [id number] Closed Auto-Generate d Referral 02/19/2023 02/20/2024 1 1 [facility] ([facility]ative)No reason for referral information availableSan [facility] Work Phone: Reason for visit Narrative* Outpatient Procedure (Routine) - Closed Specialty Diagnoses / Procedures Referred By Mily cruz Referred To Contact [facility] Diagnoses Gastroesophageal reflux disease with esophagitis without hemorrhage History of gastric ulcer Procedures EGD DIAGNOSTIC ESOPHAGOGASTRODUODENOSC OPY TRANSORAL DIAGNOSTIC Alina Schwarz PA-C [address] [place] [address] [facility] [address] [place] [address] Referral ID Status Reason Start Date Expiration Date V isits Requested Visits Authorized [id number] Closed Auto-Generate d Referral 02/19/2023 02/20/2024 1 1 [facility] Chief Complaint and Reason for Visit Chief Complaint COVID TEST Annual (MEDICAL OFFICE RECEPTIONIST) SCREENING Reason for Visit Irregular menses Osteoarthritis Chief Complaint SCREENING Annual (MEDICAL OFFICE RECEPTIONIST) CONCERN FOR UTI Reason for Visit Family history of br east cancer gene mutation in first degree relative Hot flashes Osteoporosis Encounter for routine gynecological examination Dysuria Chief Complaint Osteoporosis RECLAST Reason for Visit Osteoporosis Chief Complaint RECLAST facet arthropathy Chief Complaint facet arthropathy DDD LUMBAR. RX HERE Chief Complaint Admit Date SCREENING March 03, 2025 12:36 pm Annual (MEDICAL OFFICE RECEPTIONIST) March 03, 2025 1:06p m Reason for Visit Admit Date Family history of breast can cer gene mutation in first degree relative March 03, 2025 1:06pm Family history of uterine cancer February 1:06pm Hot flashes March 03, 2025 1:06p m Osteoporosis March 03, 2025 1:06p m Routine gynecological examination March 032024 1:06pm Chief Complaint Admit Date SCREENING March 03, 2025 12:36 pm Annual (MEDICAL OFFICE RECEPTIONIST) March 03, 2025 1:06p m 1 Y [...] 55am Dysuria May 24, 2025 7: 55am Chief Complaint Admit Date 1 Y FU May 24, 2025 7: 55am allergic reaction June 30, 2025 7:32pm RECLAST July 05, 2025 12:50pm Reason for Visit Admit Date Osteoporosis May 24, 2025 7: 55am Dysuria [...] Date/ Time Living Will Yes September 18, 019 10:21am Power of Rn Mobile Yes September 18, 2019 10:21am Advance Directive Response Recorded Date/ Time Living Will Yes September 18, 9:21am Power of Rn Mobile Yes September 18, 2019 9:21am Advance Directive Response Recorded Date/ Time Living Will Yes March 04, 2024 2 :39pm Do you have a Healthcare Power of Rn Mobile? Yes March 04, 2024 2:39pm Advance Directive Response Recorded Date/ Time Living Will Yes March 04, 2024 2 :39pm Do you have a Healthcare Pow er of Rn Mobile? Yes March 04, 2024 2:39pm Do you have a Healthcare Pow er of Rn Mobile? Yes June 30, 2025 7:45pm Name of Medical Power of Rn Mobile bertin--areli zavala June 30, 2025 7:45pm Summary Purpose Medications Administered Section Inactive Administered Medications - up to 3 most recent administrations Medication Order MAR Action Action Date Dose Rate Site benzocaine 20% 1 Gonzales (TOPEX) 1 Gonzales, TOPICAL, DIRECTED, Starting on Sat03/06/23 at 1030, [...] this informatio n is protected by the Former[facility] Confidentiality of Alcohol and Drug Abuse Patient Records regulations: The Federal rules restrict any use of the information to criminally investigate or prosecute any alcohol or drug abuse patient.[facility] the event this information is protected by the Federal Confidentiality of Alcohol and Drug Abuse Patient Records regulations: The Federal rules restrict any use of the information to criminally investigate or prosecute any alcohol or drug abuse patient.[facility] the event this information is protected by the Federal Confidentiality of Alcohol and Drug Abuse Patient Records regulations: The Federal rules restrict any use of the information to criminally investigate or prosecute any alcohol or drug abuse patient.[facility] the event this information is protected by the Federal Confidentiality of Alcohol and Drug Abuse Patient Records regulations: The Federal rules restrict any use of the information to criminally investigate or prosecute any alcohol or drug abuse patient.[facility] the event this information is protected by the Federal Confidentiality of Alcohol and Drug Abuse Patient Records regulations: The Federal rules restrict any use of the information to criminally investigate or prosecute any alcohol or drug abuse patient.[facility] Reason for Visit (unrecogniz ed section and content) Reason Comments Consult EGD - GERD Specialty Diagnoses / Procedures Referred By Contfanta t Referred To Contact General Surgery / GENERAL SURGERY Diagnoses Encounter for follow-up examination after completed treatment for conditions other than malignant neoplasm GERD - EGD CONSULT - PCP REFERRING - IN SCANNED DOC Procedures OFFICE/OUTPATIENT NEW MODERATE MDM 45-59 MINUTES NEW DDI PATIENT Trudi Silverio Les [address] [place] [address] Alina Schwarz PA-C [address] [place] [address] Referral ID Status Reason Start Date Expiration Date Visits Re quested Visits Authorized [id number] Closed 02/08/2023 10/06/2023 1 1 Reason Comments Patient Question Sore throat Reason Comments Follow Up colonoscopy Specialty Diagnoses / Procedures Referred By Mily cruz Referred To Contact General Surgery / GENERAL SURGERY Diagnoses Follow-up examination COLONOSCOPY FOLLOW UP Procedures OFFICE/OUTPATIENT ESTABLISHED MOD MDM 30-39 MIN EST DDI PATIENT Ramandeep Sesay MD [address] [place] [address] Alina Schwarz PA-C [address] [place] [address] Referral ID Status Reason Start Date Expiration Date Visits Re quested Visits Authorized [id number] Closed 03/20/2023 10/06/2023 1 1 Care Teams [...] 2025 End: March 03, 2025 Brenda Triana GI ASST, GI ASST-C Attending Provider Active Start: March 03, 2025 End: March 03, 2025 Sales Operations Associate Relationship Specialty Start Date End Date Trudi Silverio [address] [facility] [address] [place] [address] PCP - General Family Medicine 01/25/23 Team Status: Active Member Role Status Dates Dr. Daniel Jay MD Family Provider Active Dr. Trudi Silverio MD Primary Care Provider Active Team Status: Inactive Member Role Status Dates Dr. Trudi Silverio MD Primary Care Provider, Referr ing Provider Active Brenda Triana GI ASST, GI ASST-C Attending Provider Active Team Status: Inactive Member Role Status Dates Dr. Trudi Silverio MD Primary Care Provider, Referr ing Provider Active Yuri VANESSA, PA Attending Provider Active Team Status: Inactive Member Role Status Dates Dr. Trudi Silverio MD Primary Care Provider Active Brenda Triana GI ASST, GI ASST-C Attending Provider, Referring Provider Active Sales Operations Associate Relationship Specialty Start Date End Date Trudi Silverio [address] [facility] [address] [place] [address] PCP - General Family Medicine 01/25/23 Sales Operations Associate Relationship Specialty Start Date End Date Trudi Silverio [place] [address] [facility] [address] [place] [address] PCP - General Family Medicine 01/25/23 Team Status: Inactive Member Role Status Dates Dr. Trudi Silverio MD Primary Care Provider, Referr ing Provider Active Dr. Cornelius Gardner MD Attending Provider Active Team Status: Inactive Member Role Status Dates Dr. Trudi Silverio MD Primary Care Provider Active Dr. Cornelius Gardner MD Attending Provider, Referring Provi maya Active Sales Operations Associate Relationship Specialty Start Date End Date Trudi Silverio MD [address] [facility] [address] [place], [place] [id number] PCP - General Family Medicine 01/25/23 Team [...] 2025 End: March 03, 2025 Brenda Triana GI ASST, GI ASST-C Attending Provider Active Start: March 03, 2025 [...] May 26, 2025 End: May 26, 2025 Francie Martinez NP, GI ASST-C Attending Provider Active S tart: May 26, 2025 End: May 26, 2025 Team Status: Active Member Role/Relationship Status Dates Dr. Trudi Silverio MD Primary care physician Active Team Status: Inactive Member Role/Relationship Status Dates Dr. Trudi Silverio MD Primary care physician Active Start: May 24, 2025 End: May 24, 2025 Dr. Trudi Silverio MD Referring Provider Active Start: May 24, 2025 End: May 24, 2025 Dr. Cornelius Gardner MD Attending physician Active St art: May 24, 2025 End: May 24, 2025 Team Status: Inactive Member Role/Relationship Status Dates Dr. Trudi Silverio MD Primary care physician Active Start: May 24, 2025 End: May 24, 2025 Dr. Cornelius Gardner MD Attending physician Active St art: May 24, 2025 End: May 24, 2025 Dr. Cornelius Gardner MD Referring Provider Active Sta rt: May 24, 2025 End: May 24, 2025 Team Status: Inactive Member Role/Relationship Status Dates Dr. Trudi Silverio MD Primary care physician Active Start: May 26, 2025 End: May 26, 2025 Francie Martinez GI ASST, GI ASST-C Attending physician Active Start: May 26, 2025 End: May 26, 2025 Team Status: Inactive Member Role/Relationship Status Dates Dr. Trudi Silverio MD Primary care physician Active Start: June 30, 2025 End: June 30, 2025 Dr. Matheus Hartmann MD Attending physician Active Start: June 30, 2025 End: June 30, 2025 Dr. Mahteus Hartmann [facility] Active Start: June 30, 2025 End: June 30, 2025 Team Status: Inactive Member Role/Relationship Status Dates Dr. Trudi Silverio MD Primary care physician Active Start: July 05, 2025 End: July 05, 2025 Dr. Cornelius Gardner MD Attending physician Active St art: July 05, 2025 End: July 05, 2025 Dr. Cornelius Gardner MD Referring Provider Active Sta rt: July 05, 2025 End: July 05, 2025 INFORMATION SOURCE (unrecogn ized section and content) DATE CREATED AUTHOR 03/27/2023 [facility] DATE CREATED AUTHOR AUTHOR'S ORGANIZ ATION 08/05/2025 [facility] FOR RECORDS PERTAINING TO PATIENTS WHO [...] BE BASED ON THE PRIMARY CLINICAL RECORDS. [employer] provides no warranty or guarantee of the accuracy or completeness of information in this document.
[2025-08-11 13:36] LABS: Vitamin B12 374 pg/mL (180-914)
[2025-08-11 14:11] LABS: FOLATES,SERUM (FOLIC ACID) 32.30 ng/mL (4.60-34.80)
== END | disposition home or self-care (01) ==
LOC: MFPLAB 10:32
PROVIDERS: PCP Family Medicine
DX: K14.0 Glossitis (principal)
CPT/HCPCS: 82607; 82746

== ENCOUNTER → 2025-08-27 | Outpatient (CLI) | payer OTHER, SELFPAY ==
[2025-08-27 12:13] LABS: Hematocrit 41.6 % (37-47); Hemoglobin 13.3 g/dL (12.0-15.0); Immature Granulocytes Count 0.020 X10^3/uL (0.0-0.0); Mean Corp Hgb Conc 32.0 g/dL (32-36); Mean Corpuscular Volume 88.5 fL (81-99); Mean Platelet Vol. 10.0 fl (6.2-12.0); NRBC Flagged by Analyzer 0 % (0-5); Platelet Count 586 K/mm3 (150-450); RBC Distribution Width CV 13.3 % (11.6-14.6); RBC Distribution Width SD 43.3 fl (35.1-43.9); Red Blood Count 4.70 M/mm3 (4.2-5.4); White Blood Count 6.6 K/mm3 (4.4-11.0)
[2025-08-27 12:58] LABS: AST(SGOT) 21 U/L (<=31); Alanine Aminotransfer ALT/SGPT 15 U/L (<=34); Albumin, Serum 4.7 g/dL (3.5-5.0); Alkaline Phosphatase 67 U/L (35-104); Anion Gap 10 (5-15); BUN 14 mg/dL (4-19); BUN/Creat Ratio 21.1 RATIO (10-20); Calcium,Total 10.1 mg/dL (7.6-11.0); Carbon Dioxide 27.8 mmol/L (21.0-32.0); Chloride 104 mmol/L (98-108); Globulin 2.7 g/dL (2.2-4.2); Glucose 85 mg/dL (70-99); Potassium 4.9 mmol/L (3.3-5.1); Vitamin D,25 Hydroxy 38.7 ng/mL (30-100)
== END | disposition home or self-care (01) ==
LOC: MFPLAB 09:43
PROVIDERS: PCP Family Medicine; Visit Provider Family Medicine
DX: K21.9 Gastro-esophageal reflux disease without esophagitis (principal); M81.0 Age-related osteoporosis without current pathological fracture
CPT/HCPCS: 36415; 80053; 82306; 85025